=== PATIENT | male | born 1965 | race Asian ===

== ENCOUNTER 2024-01-04 10:26 | Outpatient (AMB) | payer MEDICAID, SELFPAY ==
--- NOTE | 2024-01-04 10:34 | HO.NEPHOV ---
Vital Signs 01/04/24 10:38 Height 5 ft 5 in Weight 185 lb 8 oz BMI 30.9 BP 110/80 Blood Pressure Location Lt brachial Position Sitting Pulse 83 Pulse Source Pulse Oximeter Pulse Oximetry (%) 95 Oxygen Delivery Method Room Air Intake Visit Reasons: Continuing care- Proteinuria- Conf Senior Chemist Required: Yes Senior Chemist Services: Senior Chemist Offered & Declined ([facility] Senior Chemist services refused. Pts son will interpret. ) Senior Chemist Name: Adhip- Son Accompanied by: Son Allergies No Known Allergies Allergy (Verified 01/04/24 10:25) HPI Comments Details: Pablo is a 58-year-old gentleman whom I had the privilege of seeing in follow-up for his chronic kidney disease and proteinuria. Imaging done in the past had shown large kidneys bilaterally. He has longstanding diabetes mellitus with end-organ damage from it. He is currently following his blood pressures and blood sugars closely. He denies any nausea, vomiting, diarrhea, chest pain, orthostatic symptoms. He does not take any nonsteroidal anti-inflammatories. He had nose new specific complaints at the time this office visit. He has not had any recent lab work for review at the time this office visit. [facility] Medical History (Updated 01/04/24 @ 13:25 by Dani Ramirez MD) Type 2 diabetes mellitus with diabetic nephropathy Hypertension Chronic kidney disease, stage 3a Social History (Updated 01/04/24 @ 10:35 by Erin Goode MA) Alcohol intake: never Patient Tobacco Use Status: Never used Tobacco Review of Systems Const All systems reviewed & are unremarkable except as noted in HPI and below Physical Exam Vital Signs: Last Vital Signs Pulse 83 01/04/24 10:38 BP 110/80 01/04/24 10:38 Pulse Ox 95 01/04/24 10:38 Oxygen Delivery Method Room Air 01/04/24 10:38 BMI result Body Mass Index 30.9 Const General: comfortable and no acute distress Orientation/consciousness: patient oriented x3 HEENT Head: Yes normocephalic Mouth: Normal oral and palatal mucosa present Eyes EOM: EOMs intact bilaterally Neck Neck: Yes supple Resp Auscultation: clear to auscultation bilaterally Cardio Jugular venous distension: no JVD Rate: regular rate GI Palpation (GI): Soft to palpation Auscultation: normal bowel sounds General: Yes no CVA tenderness Back/Spine/Pelvis Back: no CVA tenderness Skin General skin exam: no rashes or lesions noted Neuro General: patient oriented x3 and moves all extremities Extrem General: Yes no pedal edema Results Reviewed Nephrology Results: No Data to Display Assessment & Plan Assessment & Plan (1) Chronic kidney disease, stage 3a: Code(s): N18.31 - Chronic kidney disease, stage 3a Category: Medical (2) Hypertension: Code(s): I10 - Essential (primary) hypertension Category: Medical Qualifiers: Hypertension type: primary hypertension Qualified Code(s): I10 - Essential (primary) hypertension (3) Type 2 diabetes mellitus with diabetic nephropathy: Code(s): E11.21 - Type 2 diabetes mellitus with diabetic nephropathy Category: Medical Qualifiers: Diabetes mellitus long term care phlebotomist insulin use: without long term care phlebotomist use Qualified Code(s): E11.21 - Type 2 diabetes mellitus with diabetic nephropathy Plan Shah has diabetic nephropathy . His blood pressure is currently at goal. He is tolerating angiotensin receptor nilesh. He does not take nonsteroidal anti-inflammatories and maintain good hydration. He is tolerating Farxiga well. His urine output is good. I did not make any medication changes today. I encouraged him to do blood work and urine studies before his next visit with me for optimizing his CKD management. All his and his son's questions were answered. Follow-up appointment given Orders: Orders Creatinine 6 Months E11.21 - Type 2 diabetes mellitus with diabetic nephropathy, I10 - Essential (primary) hypertension, N18.31 - Chronic kidney disease, stage 3a Electrolytes 6 Months E11.21 - Type 2 diabetes mellitus with diabetic nephropathy, I10 - Essential (primary) hypertension, N18.31 - Chronic kidney disease, stage 3a Blood Urea Nitrogen 6 Months E11.21 - Type 2 diabetes mellitus with diabetic nephropathy, I10 - Essential (primary) hypertension, N18.31 - Chronic kidney disease, stage 3a Calcium 6 Months E11.21 - Type 2 diabetes mellitus with diabetic nephropathy, I10 - Essential (primary) hypertension, N18.31 - Chronic kidney disease, stage 3a Parathyroid Hormone Intact 6 Months E11.21 - Type 2 diabetes mellitus with diabetic nephropathy, I10 - Essential (primary) hypertension, N18.31 - Chronic kidney disease, stage 3a Protein Creatinine Ratio, Ur 6 Months E11.21 - Type 2 diabetes mellitus with diabetic nephropathy, I10 - Essential (primary) hypertension, N18.31 - Chronic kidney disease, stage 3a Vitamin D 25-OH Total 6 Months E11.21 - Type 2 diabetes mellitus with diabetic nephropathy, I10 - Essential (primary) hypertension, N18.31 - Chronic kidney disease, stage 3a Coding Level of Care Code Est Pt Level 4 (71623) Diagnoses Chronic kidney disease, stage 3a N18.31 Primary hypertension I10 Hypertension type: primary hypertension Type 2 diabetes mellitus with diabetic nephropathy, without long-term current use of insulin E11.21 Diabetes mellitus long term care phlebotomist insulin use: without senior living use
[2024-01-04 10:38] VITALS: BP 110/80; PULSE 83; O2SAT 95; BMI 30.9
== END 2024-01-04 11:00 | disposition home or self-care (01) ==
PROVIDERS: PCP Nurse Practitioner Family; Visit Provider Internal Medicine Nephrology
DX: N18.31 Chronic kidney disease, stage 3a (principal); I10 Essential (primary) hypertension; E11.21 Type 2 diabetes mellitus with diabetic nephropathy
CPT/HCPCS: 99214

== ENCOUNTER → 2024-01-04 10:26 | Outpatient (BNVA) | payer MEDICAID, SELFPAY | PROVIDERS: PCP Nurse Practitioner Family; Visit Provider Internal Medicine Nephrology | DX: E11.22 Type 2 diabetes mellitus with diabetic chronic kidney disease (principal); I12.9 Hypertensive chronic kidney disease with stage 1 through stage 4 chronic kidney disease, or unspecified chronic kidney disease; N18.31 Chronic kidney disease, stage 3a; E11.21 Type 2 diabetes mellitus with diabetic nephropathy | CPT/HCPCS: 99212 ==

== ENCOUNTER 2024-06-13 09:26 | Outpatient (AMB) | payer MEDICAID, SELFPAY ==
--- NOTE | 2024-06-13 09:36 | HO.NEPHOV ---
Vital Signs 06/13/24 09:38 Height 5 ft 5 in Weight 185 lb 6 oz BMI 30.8 BP 110/80 Blood Pressure Location Lt brachial Position Sitting Pulse 70 Pulse Source Pulse Oximeter Pulse Oximetry (%) 95 Oxygen Delivery Method Room Air Intake Visit Reasons: Proteinuria Electrical Installation Supervisor Required: Yes Electrical Installation Supervisor Language: Pashto Electrical Installation Supervisor Services: Electrical Installation Supervisor Offered & Declined [place] care worker [place], pt accompanied by son ) Accompanied by: Son Allergies No Known Allergies Allergy (Verified 06/13/24 09:37) HPI Comments Details: Pablo is a 58-year-old gentleman whom I had the privilege of seeing in follow-up for his chronic kidney disease and proteinuria. Imaging done in the past had shown large kidneys bilaterally. He has longstanding diabetes mellitus with end-organ damage from it. He is currently following his blood pressures and blood sugars closely. He denies any nausea, vomiting, diarrhea, chest pain, orthostatic symptoms. He does not take any nonsteroidal anti-inflammatories. He had no new specific complaints at the time this office visit except for intermittent dizziness. [facility] Medical History (Updated 01/04/24 @ 13:25 by Dani Ramirez MD) Type 2 diabetes mellitus with diabetic nephropathy Hypertension Chronic kidney disease, stage 3a Social History Alcohol intake: never Patient Tobacco Use Status: Never used Tobacco Review of Systems Const All systems reviewed & are unremarkable except as noted in HPI and below Physical Exam Const General: comfortable and no acute distress Orientation/consciousness: patient oriented x3 HEENT Head: Yes normocephalic Mouth: Normal oral and palatal mucosa present Eyes EOM: EOMs intact bilaterally Neck Neck: Yes supple Resp Auscultation: clear to auscultation bilaterally Cardio Jugular venous distension: no JVD Rate: regular rate GI Palpation (GI): Soft to palpation Auscultation: normal bowel sounds General: Yes no CVA tenderness Back/Spine/Pelvis Back: no CVA tenderness Skin General skin exam: no rashes or lesions noted Neuro General: patient oriented x3 and moves all extremities Extrem General: Yes no pedal edema Results Reviewed Nephrology Results: No Data to Display Assessment & Plan Assessment & Plan (1) Type 2 diabetes mellitus with diabetic nephropathy: Code(s): E11.21 - Type 2 diabetes mellitus with diabetic nephropathy Category: Medical Qualifiers: Diabetes mellitus group home insulin use: without termite helper use Qualified Code(s): E11.21 - Type 2 diabetes mellitus with diabetic nephropathy (2) Chronic kidney disease, stage 3a: Code(s): N18.31 - Chronic kidney disease, stage 3a Category: Medical (3) Hypertension: Code(s): I10 - Essential (primary) hypertension Category: Medical Qualifiers: Hypertension type: primary hypertension Qualified Code(s): I10 - Essential (primary) hypertension Plan Pablo has diabetic nephropathy .His blood pressure is low normal with intermittent dizziness. His creatinine is marginally worse, likely tubular injury. DDx- progression of diabetic nephropathy. I held his HCTZ. His metformin is on hold. He is tolerating angiotensin receptor nilesh.He does not take nonsteroidal anti-inflammatories and maintain good hydration. His urine output is good. I did not make any other medication changes today. I encouraged him to do blood work before his next visit with me for optimizing his CKD management. All his and his son's questions were answered. Follow-up appointment given Orders: Orders Blood Urea Nitrogen 6 Weeks E11.21 - Type 2 diabetes mellitus with diabetic nephropathy, I10 - Essential (primary) hypertension, N18.31 - Chronic kidney disease, stage 3a Electrolytes 6 Weeks E11.21 - Type 2 diabetes mellitus with diabetic nephropathy, I10 - Essential (primary) hypertension, N18.31 - Chronic kidney disease, stage 3a Creatinine 6 Weeks E11.21 - Type 2 diabetes mellitus with diabetic nephropathy, I10 - Essential (primary) hypertension, N18.31 - Chronic kidney disease, stage 3a Coding Level of Care Code Est Pt Level 4 (60098) Diagnoses Type 2 diabetes mellitus with diabetic nephropathy, without long-term current use of insulin E11.21 Diabetes mellitus termite helper insulin use: without termite helper use Chronic kidney disease, stage 3a N18.31 Primary hypertension I10 Hypertension type: primary hypertension
[2024-06-13 09:38] VITALS: BP 110/80; PULSE 70; O2SAT 95; BMI 30.8
--- OUTSIDE RECORDS SUMMARY | 2024-06-13 10:19 | XMS_ITS | Clinical Summary ---
Author Organization [facility] it Address [address] [place] [address] Care Team Providers Care Software Configuration Manager Name Role Phone Lenora Cox NP Primary Care Provider [phone] Social History Tobacco Use Types Packs/Day Years Used Date Smoking Tobacco: Never Assessed Sex and Gender Information Value Date Recorded Sex Assigned at Not on file Legal Sex Male 6:42 AM EST Gender Identity Not on file Sexual Orientation Not on file Obstetrics History Last Filed Vital Signs Vital Sign Reading Time Taken Comments Blood Pressure 110/80 05/01/2022 10:24 AM EST Pulse 58 05/01/2022 10:24 AM EST Temperature - - Respiratory Rate - - Oxygen Saturation - - Inhaled Oxygen Concentration - - Weight 88.5 kg (195 lb) 05/01/2022 10:24 AM EST Height 172.7 cm (5' 8 ) 05/01/2022 10:24 AM EST Body Mass Index 29.65 05/01/2022 10:24 AM EST Plan of Treatment Health Maintenance Due Date Last Done Comments Diabetes: Annual Foot Exam 02/23/1976 Diabetes: Annual Retina Eye Exam 02/23/1976 Hepatitis A Vaccines (1 of 2 - Risk 2-dose series) 1985 Colorectal Cancer Screening: Colonoscopy 01/25/2022 Social Influencers of Health Screening 01/25/2022 COVID-19 Vaccine ( season) 2023 01/27/2023, 02/26/2021, 06/19/2020, Additional history exists Diabetes: Blood Sugar Control Test (HGBA1C) 10/28/2024 04/27/2024 Depression Screening 04/27/2025 04/27/2024 Diabetes: Annual Urine Albumin-Creatinine Ratio (uACR) 04/27/2025 04/27/2024, 04/28/2023, 11/15/2019, Additional history exists Diabetes: Annual GFR (Glomerular Filtration Rate) 04/27/2025 04/27/2024 Hypertension/CHF/CAD Annual BMP Blood Test 04/27/2025 04/27/2024 Cholesterol Screening (Lipid Panel) 04/27/2029 04/27/2024, 04/27/2024, 09/23/2023, Additional history exists DTaP,Tdap,and Td Vaccines (5 - Td or Tdap) 11/27/2032 11/27/2022, 05/13/2012, 02/08/2012, Additional history exists Hepatitis B Vaccines Completed 05/31/2012, 02/08/2012, 12/23/2011 HIV Screening Completed 12/01/2017 Hepatitis C Screening Completed 11/29/2020 Zoster Vaccines Completed 12/16/2021, 03/23/2019 Pneumococcal Vaccine: 50+ Years Completed 11/27/2022, 12/01/2017 Pneumococcal Vaccine: Pediatrics (0 to 5 Years) and At-Risk Patients (6 to 64 Years) Aged Out 11/27/2022, 12/01/2017 No longer eligibl e based on patient's age to complete this topic Influenza Vaccine Completed 04/27/2024, , 12/16/2021, Additional history exists HIB Vaccines Aged Out No longer eligi ble based on patient's age to complete this topic HPV Vaccines Aged Out No longer eligi ble based on patient's age to complete this topic IPV Vaccines Aged Out No longer eligi ble based on patient's age to complete this topic MMR Vaccines Aged Out No longer eligi ble based on patient's age to complete this topic Meningococcal ACWY Vaccine Aged Out N o longer eligible based on patient's age to complete this topic Meningococcal B Vaccine Aged Out No l onger eligible based on patient's age to complete this topic RSV Immunization Patients Under 20 months Aged Out No longer eligible based on patient's age to complete this topic Varicella Vaccines Aged Out No longer eligible based on patient's age to complete this topic Care Teams Software Configuration Manager Relationship Specialty Start Date End Date Lenora Cox NP [address] [place] [address] [facility] - General 08/12/20
--- OUTSIDE RECORDS SUMMARY | 2024-06-13 10:20 | XMS_ITS | Encounter Summary ---
Author Organization [facility] Address [address] [place] [address] Care Team Providers Care Lag Screwer Name Role Phone Alex Truijllo PA-C Primary Care Provider [phone] Reason for Visit * Reason Comments Individual Counseling Encounter Details Date Type Department Care Team ([facility] st Contact Info) Description 06/08/2024 9:00 AM EDT / Visits [facility] [address] [place] [phone] Kannan Dixon LCSW [address] [place] [address] [address] [place] [address] Major depressive disorder, single episode, severe (HCC) (Primary Dx); PTSD (post-traumatic stress disorder) Social History Tobacco Use Types Packs/Day Years Used Date Smoking Tobacco: Former Smokeless Tobacco: Former Alcohol Use Standard Drinks/Week Comments No 0 (1 standard drink = 0.6 oz pur e alcohol) Social Connections Answer Date Recorded Connectedness 1 04/27/2024 Financial Resource Strain Answer Date R ecorded Financial Resource Strain 1 2024 Stress Answer Date Recorded Stress 1 04/27/2024 Physical Activity Answer Date Recorded Physical Activity 0 10/12/2018 Food Insecurity Answer Date Recorded Food 1 04/27/2024 Transportation Needs Answer Date Record ed Transportation 1 04/27/2024 Housing Stability Answer Date Recorded Housing 1 04/27/2024 Safety and Environment Answer Date David rded Safety 0 01/27/2023 Utilities Answer Date Recorded Utilities 1 04/27/2024 Employment Answer Date Recorded Employment 0 10/12/2018 Sex and Gender Information Value Date Recorded Sex Assigned at Male 03/29/2017 6:13 AM PST Legal Sex Male 7:27 AM PST Gender Identity Male 03/29/2017 6:13 AM PST Sexual Orientation Straight 03/29/2017 6: 13 AM PST documented as of this encounter Plan of Treatment Upcoming Encounters Date Type Department Care Team (Late st Contact Info) Description 07/12/2024 2:40 PM EDT Office Visit [facility] [address] [place] [address] Alex Trujillo PA-C [address] [place] [address] 07/27/2024 9:00 AM EDT / Visits [facility] [address] [place] [phone] Kannan Dixon, [facility] [address] [place] [address] [address] [place] [address] documented as of this encounter Visit Diagnoses Diagnosis Major depressive disorder, single episode, severe (HCC)- Primary Major depressive disorder, single episode, severe, without mention of psychotic behavior PTSD (post-traumatic stress disorder) Posttraumatic stress disorder documented in this encounter Additional Health Concerns Assessment Noted Time PHQ-9 Depression Total Score: 0 04/28/19 25 8:50 AM PST documented as of this encounter Care Teams Lag Screwer Relationship Specialty Start Date End Date Alex Trujillo PA-C [address] [place] [address] PCP - General [facility] 01/21/23 documented as of this encounter
--- OUTSIDE RECORDS SUMMARY | 2024-06-13 10:20 | XMS_ITS | Clinical Summary ---
Author Organization [facility] Address [address] [place] [address] [address] [place] [address] Phone Care Team Providers Care Regulatory Compliance Coordinator Name Role Phone Arti Jimenez ADMINISTRATIVE SUPERVISOR Primary Care Provider [phone] Allergies No known active allergies Medications amitriptyline (ELAVIL) 25 MG tablet Take 1 tablet by mouth 1 (one) time each day Active losartan (COZAAR) 50 MG tablet Take 1 tablet by mouth 2 (two) times a day 06/21/2018 Active metFORMIN (GLUCOPHAGE) 1000 MG tablet Take 1 tablet by mouth 2 (two) times a day Active Blood Pressure kit 1 kit 05/31/2017 Active mirtazapine (REMERON) 7.5 MG tablet Take 1 tablet by mouth every night 10/17/2020 Active omega-3 acid ethyl esters (LOVAZA) 1 g capsule Take 1 g by mouth 1 (one) time each day 11/26/2020 Active Aspirin Low Dose 81 MG EC tablet Take 81 mg by mouth 1 (one) time each day 12/11/2020 Active albuterol HFA (PROVENTIL HFA;VENTOLIN HFA) 108 (90 Base) MCG/ACT inhaler Inhale 2 puffs 12/12/2020 Active acetaminophen (TYLENOL) 500 MG tablet Take 500 mg by mouth if needed Active gabapentin (NEURONTIN) 100 MG capsule Take 1 capsule by mouth every night 02/26/2021 Active atorvastatin (LIPITOR) 20 MG tablet Take 20 mg by mouth 1 (one) time each day 03/04/2022 Active Dapagliflozin Propanediol (Farxiga) 10 MG tabletIndication s:Microalbuminur ia,Stage 3a chronic kidney disease (HCC) Take 10 mg by mouth 1 (one) time each day in the morning 30 tablet 11 07/20/2023 07/20/19 25 Active ergocalciferol 1.25 MG (55263 UT) capsuleIndicatio ns:Vitamin D deficiency, not otherwise specified TAKE 1 CAPSULE BY MOUTH 1 TIME EVERY WEEK 4 capsule 5 12/27/2023 Active Active Problems Problem Noted Date Diagnosed Date Suspected bilateral glaucoma 10/22/2021 Overview (03/19/2022): Per ophthalmology report 10/17/21 Gastro-esophageal reflux disease without esophag itis 07/23/2021 Type 2 diabetes mellitus with diabetic nephropat hy 12/17/2020 Hypertension 12/17/2020 Benign hypertensive renal disease 06/06/2020 Stage 3a chronic kidney disease 06/06/2020 Diabetes mellitus 06/06/2020 Proteinuria 06/06/2020 Microalbuminuria 06/06/2020 Essential hypertension 04/15/2016 Resolved Problems Problem Noted Date Diagnosed Date Resolved Date Steatosis of liver 12/03/2020 Overview (12/17/2020): US RUQ 03/2020 Dizziness 08/03/2020 12/17/2020 Overview (12/17/2020): CT Brain 07/2018 4mm frontal subcorticol calcification No acute abnormality Hepatitis A immune 06/06/2020 Overview (06/06/2020): per serology Obese class I 03/23/2019 06/06/2020 Severe major depression, single episode 12/07/2018 06/06/2020 Disorder of stomach 08/31/2017 06/07/19 21 Overview (06/06/2020): 12/23/16 - EGD/colonoscopy: gastric biopsy: reactive gastropathy, mild. Colonoscopy: poor prep. Pain of knee region 03/16/2014 06/07/19 21 Lumbar spondylosis 03/16/2014 Overview (06/06/2020): 07/05/17 - XRAY Lumbar spine: small degenerative osteophytes present at L3-L5. Otherwise, normal examination. Lumbar spondylosis 03/16/2014 Overview (12/17/2020): 02/01/2010: Xray lumbar: IMPRESSION: No acute findings. Mild degenerative changes. 07/05/17 - XRAY Lumbar spine: small degenerative osteophytes present at L3-L5. Otherwise, normal examination. Inactive tuberculosis of lung 07/06/2013 06/06/2020 Overview (06/06/2020): [place] [facility] [place]if[place]/14/17 - CXR: Impression: no acute pulmonary disease and no significant change from 06/23/16. A faint 4 mm L mid-lung nodule is stable. There is no radiographic evidence of active TB. Hyperlipidemia 04/05/2013 06/06/2020 Overview (06/06/2020): Microalbuminuric diabetic nephropathy 04/05/2013 06/06/2020 Mixed anxiety and depressive disorder 04/05/2013 06/06/2020 Overview (06/06/2020): Referred from psych back to PCP on 04/06/18 - Stable on Mirtazapine 7.5 mg HQS Immunizations Immunization Administration Dates Next Due Hepatitis B 05/31/2012,02/08/2012,12/23/2011 Influenza Split High Dose Pr eservative Free IM 2014 Influenza TIV (IM) 12/13/2014, 5,12/06/2012,12/22 Influenza, Quadrivalent, Pre servative Free 12/16/2021,02/26/2021,11/20/2019,12/20,12/01/2017,11/12/2016 Moderna SARS-COV-2 06/19/2020,05/22/2020 Pfizer SARS-COV-2 02/26/2021 Pneumococcal Polysaccharide 12/01/2017 Shingrix 12/16/2021 Td 05/13/2012,02/08/2012 Tdap 12/23/2011 Zoster 03/23/2019 Family History Medical History Relation Comments Diabetes Child daughter Heart disease Sibling brother Relation Status Comments Child Father Mother Sibling Social History Tobacco Use Types Packs/Day Years Used Date Smoking Tobacco: Never Smokeless Tobacco: Never Tobacco Cessation:Counseling Given: Not Answered Alcohol Use Standard Drinks/Week Comments Yes 0 (1 standard drink = 0.6 oz pur e alcohol) Sex and Gender Information Value Date Recorded Sex Assigned at Not on file Legal Sex Male 5:10 PM EST Gender Identity Not on file Sexual Orientation Not on file Last Filed Vital Signs Vital Sign Reading Time Taken Comments Blood Pressure 118/80 07/20/2023 2:42 PM EDT Pulse 74 07/20/2023 2:42 PM EDT Temperature - - Respiratory Rate - - Oxygen Saturation 98% 03/20/2021 3:06 PM EST Inhaled Oxygen Concentration - - Weight 80.3 kg (177 lb) 07/20/2023 2:42 PM EDT Height 160 cm (5' 3 ) 08/08/2019 12:00 PM EDT Body Mass Index 31.35 08/08/2019 12:00 PM EDT Plan of Treatment Health Maintenance Due Date Last Done Comments Hepatitis B Vaccine (1 of 3 - 19+ 3-dose series) 1985 05/31/2012, 02/08/2012, 12/23/2011 Colorectal Cancer Screening: Annual FOBT 2015 Colorectal Cancer Screening: Colonoscopy 2015 Colorectal Cancer Screening: Sigmoidoscopy 2015 Diabetes: Ophthalmology Exam 03/24/2020 Diabetes: Pedal Pulse Checked 03/24/2020 Diabetes: Sensory Foot Exam 03/24/2020 Diabetes: Visual Foot Exam 03/24/2020 Diabetes: Hemoglobin A1C 12/24/2023 024, 02/25/2023, 03/06/2021, Additional history exists Influenza Vaccine (Season Ended) 2024 11/27/2022, 12/16/2021, 02/26/2021, Additional history exists Pneumococcal Vaccine: 50+ Years Completed , 12/01/2017 Pneumococcal Vaccine: Peds ( 0 to 5 Years) and At-Risk Patients (6 to 49 Years) Discontinued 11/27/2022, 12/01/2017 Insurance Medicaid MD Medicaid [place] Care Teams Regulatory Compliance Coordinator Relationship Specialty Start Date End Date Arti Jimenez NP [facility] [place] [address] PCP - General Nurse Practitioner 12/17/20
--- OUTSIDE RECORDS SUMMARY | 2024-06-13 10:20 | XMS_ITS | Clinical Summary ---
Author Organization [facility] Address [address] [place] [address] Care Team Providers Care Chief Substation Operator Name Role Phone Alex Trujillo PA-C Primary Care Provider + [phone] Source Comments PLEASE NOTE, if this patient is a minor, it may be UNLAWFUL to discuss sensitive information that is contained in these records (such as FAMILY PLANNING, MENTAL HEALTH or SUBSTANCE ABUSE) with the minor patient's parent or other person without the patient's specific authorization.[facility] Allergies No known active allergies Medications back braceIndications: Chronic right-sided low back pain with right-sided sciatica 1 BACK BRACE. Dx: M54.41 wt: 203 ht: 5'5 1 Each 8 Active lidocaine (LIDODERM) 5 % patchIndications: Spondylosis of lumbar region without myelopathy or radiculopathy Place 1 Patch onto the skin once daily (every 24 hours) 30 Patch 1 2 Active acetaminophen (TYLENOL) 500 mg tablet Take 1 Tablet by mouth every 6 (six) hours as needed for pain 15 Tablet 2 Active ARTHRITIS PAIN RELIEF,CAPSAIC, 0.075 % cream APPLY TOPICALLY THREE TIMES DAILY 57 g 1 3 Active diclofenac sodium (VOLTAREN) [address] tablet Take 50 mg by mouth 2 (two) times daily 3 Active PROAIR HFA 90 mcg/actuation inhalerIndication s:Chronic bronchitis, unspecified chronic bronchitis type (HCC-CMS) Inhale 2 Puffs into the lungs every 4 (four) hours as needed for shortness of breath or wheezing 8.5 g 1 4 Active blood-glucose meter monitoring kitIndications:Ty pe 2 diabetes mellitus with diabetic nephropathy, without long-term current use of insulin ([facility]) as needed for blood glucose monitoring Freestyle meter please 1 Each [address] Active [address] tabletIndications :Essential hypertension TAKE 1 TABLET BY MOUTH ONCE DAILY 90 Tablet 1 5 Active omega-3 acid ethyl esters (LOVAZA) 1 gram capsuleIndication s:Hypertriglyceri demia TAKE 1 CAPSULE BY MOUTH TWICE DAILY 180 Capsule 1 5 Active mirtazapine 7.5 mg tabIndications:Po st traumatic stress disorder Take 1 Tablet by mouth nightly at bedtime 90 Tablet 1 5 Active amLODIPine (NORVASC) 5 mg tabletIndications :Essential hypertension Take 1 Tablet by mouth once daily 90 Tablet 1 5 Active atorvastatin (LIPITOR) 40 mg tabletIndications :Essential hypertension,Type 2 diabetes mellitus with diabetic nephropathy, without long-term current use of insulin ([facility]),Hypertr iglyceridemia Take 1 Tablet by mouth nightly at bedtime 90 Tablet 1 5 Active blood sugar diagnostic (FREESTYLE TEST) stripsIndications :Type 2 diabetes mellitus with microalbuminuria, without long-term current use of insulin ([facility]) Freestyle strips. Dx: E11.9 Check BG once daily. 100 Each 5 Active famotidine (PEPCID) 40 mg tabletIndications :Gastroesophageal reflux disease, unspecified whether esophagitis present Take 1 Tablet by mouth once daily 90 Tablet 5 Active FARXIGA 5 mg tab Take 1 Tablet by mouth every morning 90 Tablet 5 Active gabapentin (NEURONTIN) 100 mg capsuleIndication s:Spondylosis of lumbar region without myelopathy or radiculopathy Take 1 Capsule by mouth nightly at bedtime 90 Capsule 5 Active lancets (FREESTYLE LANCETS) 28 gaugeIndications: Type 2 diabetes mellitus with microalbuminuria, without long-term current use of insulin ([facility]) Freestyle lancets. Dx: E11.9 Check BG once daily. 100 Each 5 Active losartan (COZAAR) 50 mg tabletIndications :Essential hypertension Take 1 Tablet by mouth 2 (two) times daily 180 Tablet 1 5 Active metFORMIN (GLUCOPHAGE) 1,000 mg tabletIndications :Type 2 diabetes mellitus with diabetic nephropathy, without long-term current use of insulin ([facility]) Take 1 Tablet by mouth 2 (two) times daily 180 Tablet 1 5 Active Active Problems Problem Noted Date Diagnosed Date Suspected glaucoma of both eyes 10/22/2021 Overview (10/22/2021): Per ophthalmology report 10/17/21 Gastroesophageal reflux disease without esophagi tis 07/23/2021 Fatty infiltration of liver 12/03/2020 Overview (12/03/2020): US RUQ 03/2020 Nonspecific dizziness 08/03/2020 Overview (08/03/2020): CT Brain 07/2018 4mm frontal subcorticol calcification No acute abnormality Benign hypertensive renal disease 06/06/2020 Chronic kidney disease, stage 3a ([facility]) 06/06 Overview (05/20/2022): Seeing [facility]. Last consult 02/2022 Chronic Kidney Disease 3 He appears to be doing rather well from the standpoint of his probable incipient diabetic nephropathy. His blood pressure is at goal. His volume status is optimal. He is on losartan for renal protection which he should continue 50 mg bid . His blood sugars appear to be under reasonable control. He is a candidate for SGLT2 inhibitor. He should avoid NSAID's and should remain well hydrated. .All patient's questions answered. No other prescription refills done today. Blood work ordered. Follow up given Gastropathy 08/31/2017 Overview (09/12/2018): 12/23/16 - EGD/colonoscopy: gastric biopsy: reactive gastropathy, mild. Colonoscopy: poor prep. Essential hypertension 04/15/2016 Osteoarthritis of lumbar spine 03/16/2014 Overview (07/10/2020): 02/01/2010: Xray lumbar: IMPRESSION: No acute findings. Mild degenerative changes. 07/05/17 - XRAY Lumbar spine: small degenerative osteophytes present at L3-L5. Otherwise, normal examination. TB lung, latent 07/06/2013 Overview (04/08/2021): 2 mm calcified granuloma of left lung He is going to TB clinic at [facility], on Rifampin 12/14/17 - CXR: Impression: no acute pulmonary disease and no significant change from 06/23/16. A faint 4 mm L mid-lung nodule is stable. There is no radiographic evidence of active TB. Microalbuminuric diabetic nephropathy ([facility]) 04/05/2013 Anxiety and depression 04/05/2013 Overview (04/06/2018): Referred from psych back to PCP on 04/06/18 - Stable on Mirtazapine 7.5 mg HQS Type 2 diabetes mellitus wit h diabetic nephropathy, without long-term current use of insulin ([facility]) Overview (06/13/2017): 02/24/13reat: 1.05, GFR: >60%, LDL: 123, A1C: 7.8%, Microalb/creat ratio: 791mg/G, Microalb: 1202 mg/L 06/04/17 - Diabetic eye exam: No retinopathy. Pigmented papilloma OU stable, Pinguecula b/l stable, Nuclear sclerotic cataract. Rx Spectacles. F/U 1 year. Resolved Problems Problem Noted Date Diagnosed Date Resolved Date Proteinuria 07/06/2017 02/26/2021 Overview (08/03/2020): 05/31/17 - NEPHRO at [facility]: proteinuria. Doing well from the standpoint of his probable incipient diabetic nephropathy. BP and BG well controlled, on lisinopril for renal protection. Repeat blood work and urine studies for F/U. 06/21/18 - NEHRO F/U: Losartan increased form 50 mg QD to 50 mg BID, Amlodipine 5 mg discontinued. Chest pain syndrome 07/06/2013 11/13/19 17 Overview (07/06/2013): When in [place] patient had Cath done (per son) and was normal. This was performed due to c/o angina type pain which he continues to have Encounters Date Type Department Care Team Description 06/08/2024 9:00 AM EDT BH/MH Visits [address] [phone] Kannan Dixon LCSW Tiwari, Bhanu Major depressive disorder, single episode, severe (HCC) (Primary Dx); PTSD (post-traumatic stress disorder) 05/08/2024 9:00 AM EDT BH/MH Visits [address] [phone] Kannan Dixon LCSW Major depressive disorder, single episode, severe (HCC) (Primary Dx); PTSD (post-traumatic stress disorder) 04/27/2024 8:40 AM EST Office Visit [facility] [address] [place] [address] Alex Trujillo PA-C Annual physical exam (Primary Dx); Immunization due; Essential hypertension; Type 2 diabetes mellitus with diabetic nephropathy, without long-term current use of insulin ([facility]); Hypertriglyceridemia; Type 2 diabetes mellitus with microalbuminuria, without long-term current use of insulin ([facility]); Gastroesophageal reflux disease, unspecified whether esophagitis present; Spondylosis of lumbar region without myelopathy or radiculopathy 03/27/2024 9:00 AM EST BH/MH Visits [address] [phone] Kannan Dixon LCSW Major depressive disorder, single episode, severe (HCC) (Primary Dx); PTSD (post-traumatic stress disorder) from Last 3 Months Immunizations Immunization Administration Dates Next Due Flu, Preservative Free 11/27/2022,2021,02/26/2021,11/19,12/20/2018,12/01/2017,11/12/2016 Hep B, Adult/Adol (ENERGIX/RECOMBIVAX) 0 05/31/2012,05/31/2012,02/08/2012,02/07,12/23/2011,12/23/2011 INFLUENZA, SEASONAL, INJECTABLE 12/14/19 15,03/16/2014,12/06/2012,12/06,12/23/2011,12/23/2011 Influenza (FLUBLOK),recombinant,injectable,prese rvative Free 04/27/2024 Influenza (FLUZONE), high-do se, trivalent, PF 2014 Moderna COVID-19 (Spikevax), Mrna, Lnp-s, Pf, 50 Mcg/0.5 Ml, 12yr+ 01/27/2023 Moderna COVID-19 Vaccine, re d cap blue label, 12+ Primary Series 06/19/2020,05/22/2020 PFIZER COVID VACCINE, PURPLE CAP, 12+ 02/26/2021 PNEUMOCOCCAL CONJUGATE PCV 2 0 (Prevnar) 11/27/2022 PNEUMOCOCCAL POLYSACCHARIDE PPV23 12/01/2017 TDAP 11/27/2022,12/23/2011,12/23/2011 Td(adult),2 Lf tetanus toxoid,preservative free 05/13/2012,05/13/2012,02/08/2012,02/07 ZOSTER VACCINE, RECOMBINANT (SHINGRIX) ,03/23/2019 Social History Tobacco Use Types Packs/Day Years Used Date Smoking Tobacco: Former Smokeless Tobacco: Former Tobacco Cessation:Counseling Given: No Alcohol Use Standard Drinks/Week Comments No 0 [...] Orientation Straight 03/29/2017 6: 13 AM PST Last Filed Vital Signs Vital Sign Reading Time Taken Comments Blood Pressure 120/90 04/27/2024 8:50 AM EST Pulse 93 04/27/2024 8:50 AM EST Temperature 36.7 ??C (98.1 ??F) 04/27/2024 8:50 AM ES T Respiratory Rate 18 04/27/2024 8:50 AM EST Oxygen Saturation 97% 04/27/2024 8:50 AM EST Inhaled Oxygen Concentration - - Weight 83.6 kg (184 lb 6.4 oz) 04/27/2024 8:50 A M EST Height 167.6 cm (5' 6 ) 04/27/2024 8:50 AM EST Body Mass Index 29.76 04/27/2024 8:50 AM EST Plan of Treatment Upcoming Encounters Date Type Department Care Team (Late st Contact Info) Description 07/12/2024 2:40 PM EDT Office Visit [address] [phone] Alex Trujillo PA-C [address] [place] [address] 07/27/2024 9:00 AM EDT / Visits [facility] [address] [place] [phone] Kannan Dixon, TRAY SERVER [address] [place] [phone] [address] [place] [address] Health Maintenance Due Date Last Done Comments Anxiety Screening [address] CT Colonography 2011 FIT/gFOBT 2011 Fecal DNA 2011 Flexible Sigmoidoscopy 2011 Colonoscopy 12/22/2021 12/22/2016 Colorectal Cancer Screening 12/22/2021 [id number] ( season) 2023 01/27/2023, 02/26/2021, 06/19/2020, Additional history exists Diabetes Foot Exam 11/28/2023 11/27/2022, 1 , 11/05/2020, Additional history exists Dental BW 12/01/2023 11/28/2022 Dental Perio Charting 12/01/2023 11/28/2022 Dental Prophy 12/12/2023 06/10/2023, 11/28/2022 Dental Examination 06/11/2024 06/10/2023, 11/28/2022 Depression Monitoring 07/28/2024 04/27/2024 , 09/23/2023, 04/28/2023, Additional history exists Tobacco Screening 09/22/2024 09/23/2023 Retinopathy Screening 10/26/2024 10/27/2023 , 10/21/2022, 10/17/2021, Additional history exists Diabetes HbA1c 10/28/2024 04/27/2024, 08/0 02/2023, 02/25/2023, Additional history exists Annual Preventive Care Visit 04/27/202507/2024, 01/27/2023, 11/27/2022, Additional history exists Lipid Screening 04/27/2025 04/27/2024, 08/0 02/2023, 04/28/2023, Additional history exists Serum Creatinine 04/27/2025 04/27/2024, , 09/23/2023, Additional history exists Urine Albumin Creatinine Rat io Screening 04/27/2025 04/27/2024, 01/19/2024, 04/28/2023, Additional history exists Dental FMX/Pano 12/01/2027 11/28/2022 Imm-DTaP/Tdap/Td (8 - Td or Tdap) 11/27/2032 11/27/2022, 05/13/2012, 05/13/2012, Additional history exists Imm-Hepatitis B Completed 05/31/2012, 04/0 10/2012, 02/08/2012, Additional history exists HIV Screening Completed 12/01/2017 Hepatitis C Screening Completed 11/29/2020, 020 Imm-Zoster, Recombinant Completed 12/16/2021, 03/23 Imm-Pneumococcal Completed 11/27/2022, 12/01/2017 Alcohol and Drug Screen Completed 04/28/19, 09/23/2023, 02/25/2023, Additional history exists Imm-Influenza Completed 04/27/2024, 07/2022, 12/16/2021, Additional history exists Procedures Procedure Name Priority Date/Time Associated Diagnosis Comments REFERRAL SCANNED DOCUMENT 05/25/2024 3:00 AM EDT MICROALBUMIN/CREATININ E RATIO, URINE, RANDOM Routine 04/27/2024 9:16 AM EST Type 2 diabetes mellitus with diabetic nephropathy, without long-term current use of insulin ([facility]) LIPID PANEL Routine 04/27/2024 9:16 AM EST Essential hypertension Type 2 diabetes mellitus with diabetic nephropathy, without long-term current use of insulin ([facility]) Hypertriglyceridemi a HEMOGLOBIN GLYCOSYLATED A1C Routine 04/27/2024 9:16 AM EST Type 2 diabetes mellitus with diabetic nephropathy, without long-term current use of insulin ([facility]) COMPREHENSIVE METABOLIC PANEL Routine 04/27/2024 9:16 AM EST Essential hypertension Type 2 diabetes mellitus with diabetic nephropathy, without long-term current use of insulin ([facility]) Hypertriglyceridemi a BLOOD COUNT COMPLETE AUTO&AUTO DIFRNTL WBC Routine 04/27/2024 9:16 AM EST Essential hypertension Type 2 diabetes mellitus with diabetic nephropathy, without long-term current use of insulin ([facility]) Hypertriglyceridemi a EYE EXAM 10/27/2023 3:00 AM EDT Full PROPHYLAXIS - ADULT Routine 06/10/2023 9:40 AM EDT Caries of enamel (incipient) Full PERIODIC ORAL EVALUATION ESTABLISHED PATIENT Routine 06/10/2023 9:40 AM EDT Caries of enamel (incipient) INTRAORAL - COMP SERIES OF RADIOGRAPHIC IMAGES Routine 11/28/2022 9:00 AM EDT Fracture of crown, enamel, and dentin of tooth without pulp exposure Encounter for dental examination ACUTE HEPATITIS PANEL W/RFLX Routine 11/29/2020 10:41 AM EDT Elevated LFTs REFERRAL TO PODIATRY Routine 11/26/2020 3:00 AM EDT Type 2 diabetes mellitus with diabetic nephropathy, without long-term current use of insulin ([facility]) ANTIBODY HIV-1&HIV-2 SINGLE RESULT Routine 12/01/2017 9:34 AM EDT Routine lab draw COLONOSCOPY Routine 12/22/2016 9:00 AM EDT from Last 3 Months or Most Recently Relevant to Health Maintenance Results * REFERRAL SCANNED DOCUMENT (05/25/2024 3:00 AM EDT) 05/25/2024 3:00 AM EDT [facility] Provider Default SCAN REFERRAL Final Resu lt * (ABNORMAL) MICROALBUMIN/CREATININE RATIO, URINE, RANDOM (04/27/2024 9:16 AM EST) CREATININE, RANDOM URINE 113 20 - 320 mg/dL [facility] MICROALBUMIN 322.0 mg/dL [facility] Comment: Verified by repeat analysis. Reference Range Not established MICROALBUMIN/CREA TININE RATIO, RANDOM URINE 2,850(H) <30 mg/g creat [facility] Comment: The ADA defines abnormalities in albumin excretion as follows: Albuminuria Category ?Result (mg/g creatinine) Normal to Mildly increased ?? <30 Moderately increased ? 30-299 Severely increased ? > OR = 300 The ADA recommends that at least two of three specimens collected within a 3-6 month period be abnormal before considering a patient to be within a diagnostic category. Urine Urine specimen / Unknown 04/27/2024 9:16 AM EST 04/27/2024 9:17 AM EST Alex Trujillo PA-C LAB - NO BLOOD DRAW Final Re sult [facility] [address] [address], [facility] [address] [place] [address] * BLOOD COUNT COMPLETE AUTO&AUTO DIFRNTL WBC (04/27/2024 9:16 AM EST) WHITE BLOOD CELL COUNT 6.5 3.8 - 10.8 Thousand/ uL [employer] [employer] RED BLOOD CELL COUNT 5.20 4.20 - 5.80 Million/u L [employer] HEMOGLOBIN 14.7 13.2 - 17.1 g/dL [employer] HEMATOCRIT 45.8 38.5 - 50.0 % [employer] MCV 88.1 80.0 - 100.0 fL [employer] MCH 28.3 27.0 - 33.0 pg [employer] MCHC 32.1 32.0 - 36.0 g/dL [facility] Comment: For adults, a slight decrease in the calculated MCHC value (in the range of 30 to 32 g/dL) is most likely not clinically significant; however, it should be interpreted with caution in correlation with other red cell parameters and the patient's clinical condition. RDW 14.1 11.0 - 15.0 % [employer] PLATELET COUNT 242 140 - 400 Thousand/ uL [employer] MPV 11.7 7.5 - 12.5 fL [employer] ABSOLUTE NEUTROPHILS 4,043 1,500 - 7,800 cells/uL [employer] ABSOLUTE LYMPHOCYTES 1,898 850 - 3,900 cells/uL [employer] ABSOLUTE MONOCYTES 358 200 - 950 cells/uL [employer] ABSOLUTE EOSINOPHILS 169 15 - 500 cells/uL [employer] ABSOLUTE BASOPHILS 33 0 - 200 cells/uL [employer] NEUTROPHILS PCT 62.2 % [facility] [employer] [facility] LYMPHOCYTES 29.2 % [email or web address] MONOCYTES 5.5 % [facility] EOSINOPHILS 2.6 % [email or web address] BASOPHILS 0.5 % [facility] Blood Blood / Unknown 04/27/2024 9 :16 AM EST 04/27/2024 9:17 AM EST us Rosimar Trujillo PA-C LAB - BLOOD DRAW Edited Resu lt - Final Performing Organization Address City/[facility]/ZIP Co de Phone Number [facility] [address] [address], [facility] [address] [address] * (ABNORMAL) HEMOGLOBIN GLYCOSYLATED A1C (04/27/2024 9:16 AM EST) HEMOGLOBIN A1C 5.8(H) <5.7 % of total Hgb [facility] Comment: For someone without known diabetes, a hemoglobin A1c value between 5.7% and 6.4% is consistent with prediabetes and should be confirmed with a follow-up test. For someone with known diabetes, a value <7% indicates that their diabetes is well controlled. A1c targets should be individualized based on duration of diabetes, age, comorbid conditions, and other considerations. This assay result is consistent with an increased risk of diabetes. Currently, no consensus exists regarding use of hemoglobin A1c for diagnosis of diabetes for children. Blood Blood / Unknown 04/27/2024 9 :16 AM EST 04/27/2024 9:17 AM EST us Alex Trujillo PA-C LAB - BLOOD DRAW Edited [facility] - Final Performing Organization Address [facility]/ZIP Co de Phone Number [facility] [address] [address], [facility] [address] [address] * (ABNORMAL) LIPID PANEL (04/27/2024 9:16 AM EST) CHOLESTEROL, TOTAL 137 <200 mg/dL [facility] HDL CHOLESTEROL 36(L) > OR = 40 mg/dL [facility] TRIGLYCERIDES 200(H) <150 mg/dL [facility] Comment: If a non-fasting specimen was collected, consider repeat triglyceride testing on a fasting specimen if clinically indicated. Steve et al. J. of Clin. Lipidol. 2015;9:129-169. LDL-CHOLESTEROL 71 99 mg/dL (calc) [facility] Comment: Reference range: <100 Desirable range <100 mg/dL for primary prevention; ?? <70 mg/dL for patients with CHD or diabetic patients with > or = 2 CHD risk factors. LDL-C is now calculated using the Raz calculation, which is a validated novel method providing better accuracy than the Friedewald equation in the estimation of LDL-C. Chencho ESCALONA et al. JENNIFER. 2013;310(19): 6422-6094 (http://education.Virtual Call Center/faq/KXH810) CHOL/HDLC RATIO 3.8 <5.0 (calc) [facility] [employer] NON-HDL CHOLESTEROL 101 <130 mg/dL (calc) [facility] Comment: For patients with diabetes plus 1 major ASCVD risk factor, treating to a non-HDL-C goal of <100 mg/dL (LDL-C of <70 mg/dL) is considered a therapeutic option. Blood Blood / Unknown 04/27/2024 9 :16 AM EST 04/27/2024 9:17 AM EST Alex Trujillo PA-C LAB - BLOOD DRAW Final Resul t [facility] [address] [address], [facility] [address] [phone] * (ABNORMAL) COMPREHENSIVE METABOLIC PANEL (04/27/2024 9:16 AM EST) GLUCOSE 82 65 - 99 mg/dL [facility] Comment: ?Fasting reference interval UREA NITROGEN (BUN) 24 7 - 25 mg/dL [facility] CREATININE (blood) 2.01(H) 0.70 - 1.30 mg/dL [employer] EGFR 38(L) > OR = 60 mL/min/1. 73m2 [employer] BUN/CREATININE RATIO 12 6 - 22 (calc) [employer] SODIUM 141 135 - 146 mmol/L [employer] POTASSIUM 4.4 3.5 - 5.3 mmol/L [employer] CHLORIDE 107 98 - 110 mmol/L [employer] CARBON DIOXIDE 24 20 - 32 mmol/L [employer] CALCIUM 9.4 8.6 - 10.3 mg/dL [facility] PROTEIN, TOTAL 6.1 6.1 - 8.1 g/dL [facility] ALBUMIN 4.1 3.6 - 5.1 g/dL [facility] GLOBULIN 2.0 1.9 - 3.7 g/dL (calc) [facility] ALBUMIN/GLOBULI N RATIO 2.1 1.0 - 2.5 (calc) [facility] BILIRUBIN, TOTAL 0.7 0.2 - 1.2 mg/dL [facility] ALKALINE PHOSPHATASE 66 35 - 144 U/L [facility] AST 18 10 - 35 U/L [facility] ALT 22 9 - 46 U/L [facility] Blood Blood / Unknown 04/27/2024 9 :16 AM EST 04/27/2024 9:17 AM EST us Alex Trujillo PA-C LAB - BLOOD DRAW Edited Resu lt - Final [facility] [address] [address], [facility] [address] [address] * EYE EXAM (10/27/2023 3:00 AM EDT) 10/27/2023 3:00 AM EDT us Alex Trujillo PA-C OTHER Edited Resul t - Final * ACUTE HEPATITIS PANEL W/RFLX (11/29/2020 10:41 AM EDT) HEPATITIS A IGM ANTIBODY NON-REACT GERI NON-REACT GERI [facility] COMMENT [facility] HEPATITIS B SURFACE ANTIGEN NON-REACT GERI NON-REACT GERI [facility] HEPATITIS B CORE IGM ANTIBODY NON-REACT GERI NON-REACT GERI [facility] HEPATITIS C ANTIBODY NON-REACT GERI NON-REACT GERI [facility] SIGNAL TO CUT-OFF 0.02 <1.00 [facility] Comment: HCV antibody was non-reactive. There is no laboratory evidence of HCV infection. In most cases, no further action is required. However, if recent HCV exposure is suspected, a test for HCV RNA (test code 37581) is suggested. For additional information please refer to http://Zin.gl.V-me Media/faq/RHM16l1 (This link is being provided for informational/ educational purposes only.) Blood Blood / Unknown 11/29/2020 1 0:41 AM EDT 11/29/2020 10:41 AM EDT Narrative [facility] - 11/30/2020 12:21 PM EDT For additional information, please refer to http://Zin.gl.V-me Media/faq/OXF441 (This link is being provided for informational/ educational purposes only.) Arti KRAUSE-C LAB - BLOOD DRAW Final Resul t [facility] [address] [place] [address], [facility] [address] [address] * REFERRAL TO PODIATRY (11/26/2020 3:00 AM EDT) 11/26/2020 3:00 AM EDT Arti KRAUSE-C REFERRAL Edited Resul t - Final * HIV-1 & HIV-2 ANTIBODIES (12/01/2017 9:34 AM EDT) HIV 1 AND 2 ANTIBODY SCREEN NEGATIVE NEGATIVE [facility] Comment: This assay is a 4th generation assay allowing for earlier detection of HIV infection by detecting the presence of the HIV-1 p24 antigen as well as the traditional antibodies to HIV type 1 (including group O) and type 2. ??Use of a 4th generation assay is the current CDC recommendation for HIV screening. Blood specimen (specimen) Blood / Unknown 12/01/2017 9:34 AM EDT 12/01/2017 10:09 AM EDT [facility]ative [facility] 12/01/2017 1:03 PM EDT [facility] [address] [place] [address] PT ID [id number] ORD# [id number] Joana Workman PA-C LAB - BLOOD DRAW Final Re sult [facility] [address] [place] [address], * COLONOSCOPY (12/22/2016 9:00 AM EDT) Impressions Connie Felton MA - 12/22/2016 9:00 AM EDT Colonoscopy impressions: mild gastritis, aborted colonoscopy Pathology 12/23/2016 Reactive gastropathy, mild Repeat 1 year Provider [facility] PROCEDURES Final Result from Last 3 Months or Most Recently Relevant to Health Maintenance Insurance [facility] DENTAL [facility] SAFETY NET DENTAL [facility] Member Subscriber Plan / Payer (Ef fective 2023-Present) Name:Pablo Dugan Relation to Subscriber:Self Name:Pablo Dugan Payer ID:[id number] Group ID:Not on file Type:Managed Medicaid Address: [place] [id number] Care Teams Chief Substation Operator Relationship Specialty Start Date End Date Alex Trujillo PA-C [address] [place] [address] PCP - General [facility] [place] 01/21/23
== END 2024-06-13 09:56 | disposition home or self-care (01) ==
LOC: HO.HKAS 09:27
PROVIDERS: PCP Nurse Practitioner Family; Visit Provider Internal Medicine Nephrology
DX: E11.21 Type 2 diabetes mellitus with diabetic nephropathy (principal); N18.31 Chronic kidney disease, stage 3a; I10 Essential (primary) hypertension
CPT/HCPCS: 99214

== ENCOUNTER → 2024-06-13 09:26 | Outpatient (BNVA) | payer MEDICAID, SELFPAY | PROVIDERS: PCP Nurse Practitioner Family; Visit Provider Internal Medicine Nephrology | DX: E11.22 Type 2 diabetes mellitus with diabetic chronic kidney disease (principal); E11.21 Type 2 diabetes mellitus with diabetic nephropathy; I12.9 Hypertensive chronic kidney disease with stage 1 through stage 4 chronic kidney disease, or unspecified chronic kidney disease; R80.9 Proteinuria, unspecified; N28.81 Hypertrophy of kidney; N18.31 Chronic kidney disease, stage 3a | CPT/HCPCS: 99212 ==

== ENCOUNTER 2024-08-03 09:29 | Outpatient (REF) | payer MEDICAID, SELFPAY ==
[2024-08-03 17:52] LABS: Anion Gap 10 (12-20); Blood Urea Nitrogen 32 mg/dL (9-16); Calcium 9.2 mg/dL (8.4-10.2); Carbon Dioxide 25 mmol/L (22-29); Chloride 109 mmol/L (96-108); Estimated Glomerular Filt Rate 24; Potassium 4.3 mmol/L (3.3-5.1); Sodium 140 mmol/L (135-145)
[2024-08-03 18:05] LABS: Creatinine Urine 73.99 mg/dL
[2024-08-03 18:08] LABS: Vitamin D 25-OH Total 48.5 ng/mL (>30)
[2024-08-03 18:10] LABS: Parathyroid Hormone Intact 140.1 pg/mL (8.7-77.1)
[2024-08-03 18:19] LABS: Protein/Creatinine Ratio, Ur 4.78 (<0.2); Total Protein Urine Random 354 mg/dL (<12)
== END 2024-08-03 09:30 | disposition home or self-care (01) ==
LOC: HO.HKASLDS 09:29
PROVIDERS: Visit Provider Internal Medicine Nephrology
DX: E11.21 Type 2 diabetes mellitus with diabetic nephropathy (principal); I10 Essential (primary) hypertension; N18.31 Chronic kidney disease, stage 3a
CPT/HCPCS: 36415; 80051; 82306; 82310; 82565; 82570; 83970; 84156; 84520

== ENCOUNTER 2024-08-16 10:21 | Outpatient (REF) | payer MEDICAID, SELFPAY ==
--- OUTSIDE RECORDS SUMMARY | 2024-08-16 12:04 | XMS_ITS | Clinical Summary ---
Author Organization [facility] it Address [address] [place] [address] Care Team Providers Care Waste Duster Name Role Phone Lenora Cox NP Primary Care Provider [phone] Social History Tobacco Use Types Packs/Day Years [...] age to complete this topic Care Teams Waste Duster Relationship Specialty Start Date End Date Lenora Cox NP [address] [place] [address] [facility] - General 08/12/20
[2024-08-16 18:28] LABS: Anion Gap 14 (12-20); Blood Urea Nitrogen 26 mg/dL (9-16); Calcium 9.3 mg/dL (8.4-10.2); Carbon Dioxide 25 mmol/L (22-29); Chloride 106 mmol/L (96-108); Estimated Glomerular Filt Rate 26; Glucose Random 102 mg/dL (60-115); Potassium 4.7 mmol/L (3.3-5.1); Sodium 140 mmol/L (135-145)
== END 2024-08-16 10:22 | disposition home or self-care (01) ==
LOC: HO.HKASLDS 10:21
PROVIDERS: Nurse Practitioner Family; Visit Provider Internal Medicine Nephrology
DX: N18.30 Chronic kidney disease, stage 3 unspecified (principal); N17.9 Acute kidney failure, unspecified
CPT/HCPCS: 36415; 80048

== ENCOUNTER 2024-08-17 10:41 | Outpatient (AMB) | payer MEDICAID, SELFPAY ==
[2024-08-17 10:57] VITALS: BP 128/80; PULSE 95; O2SAT 93; BMI 32.7
--- NOTE | 2024-08-17 10:57 | HO.NEPHOV ---
Vital Signs 08/17/24 10:57 Height 5 ft 5 in Weight 196 lb 6 oz BMI 32.7 BP 128/80 Blood Pressure Location Lt brachial Position Sitting Pulse 95 Pulse Source Pulse Oximeter Pulse Oximetry (%) 93 Oxygen Delivery Method Room Air Intake Visit Reasons: 2 mo follow up Intake Note: Patient here for a follow-up. Senior Procurement Specialist Required: No Accompanied by: Son Allergies No Known Allergies Allergy (Verified 08/17/24 10:59) Do you need a note to return to daycare/school/sports/work: No HPI Comments Details: Pablo is a 59-year-old gentleman whom I had the privilege of seeing in follow-up for his chronic kidney disease and proteinuria. Recently he had PETERSON and his ARB has been discontinued. His BP went up and he went to [facility] and was admitted for further management. He received IV fluids and his creatiine stabilized and improved marginally. Imaging done in the past had shown large kidneys bilaterally. He has longstanding diabetes mellitus with end-organ damage from it. He is currently following his blood pressures and blood sugars closely. He denies any nausea, vomiting, diarrhea, chest pain, orthostatic symptoms. He does not take any nonsteroidal anti-inflammatories. He had no new specific complaints at the time this office visit. He was accompanied by his son during the office visit [facility] Medical History Type 2 diabetes mellitus with diabetic nephropathy Hypertension Chronic kidney disease, stage 3a Social History Alcohol intake: never Patient Tobacco Use Status: Never used Tobacco Review of Systems Const All systems reviewed & are unremarkable except as noted in HPI and below Physical Exam Vital Signs: Last Vital Signs Pulse 95 08/17/24 10:57 BP 128/80 08/17/24 10:57 Pulse Ox 93 08/17/24 10:57 Oxygen Delivery Method Room Air 08/17/24 10:57 BMI result Body Mass Index 32.7 Const General: comfortable and no acute distress Orientation/consciousness: patient oriented x3 HEENT Head: Yes normocephalic Mouth: Normal oral and palatal mucosa present Eyes EOM: EOMs intact bilaterally Neck Neck: Yes supple Resp Auscultation: clear to auscultation bilaterally Cardio Jugular venous distension: no JVD Rate: regular rate GI Palpation (GI): Soft to palpation Auscultation: normal bowel sounds General: Yes no CVA tenderness Back/Spine/Pelvis Back: no CVA tenderness Skin General skin exam: no rashes or lesions noted Neuro General: patient oriented x3 and moves all extremities Extrem General: Yes no pedal edema Results Reviewed Nephrology Results: Sodium, (135-145) 140 mmol/L 08/16/24 Potassium, (3.3-5.1) 4.7 mmol/L 08/16/24 Chloride, (96-108) 106 mmol/L 08/16/24 Carbon Dioxide, (22-29) 25 mmol/L 08/16/24 BUN, (9-16) 26 mg/dL H 08/16/24 Creatinine, (0.5-1.4) 2.59 mg/dL H 08/16/24 Calcium, (8.4-10.2) 9.3 mg/dL 08/16/24 PTH Intact, (8.7-77.1) 140.1 pg/mL H 08/03/24 Urine Creatinine 73.99 mg/dL 08/03/24 Protein/Creatinin Ratio, (<0.2) 4.78 H 08/03/24 Assessment & Plan Assessment & Plan (1) Chronic kidney disease, stage 3a: Code(s): N18.31 - Chronic kidney disease, stage 3a Category: Medical (2) Hypertension: Code(s): I10 - Essential (primary) hypertension Category: Medical Qualifiers: Hypertension type: primary hypertension Qualified Code(s): I10 - Essential (primary) hypertension (3) Type 2 diabetes mellitus with diabetic nephropathy: Code(s): E11.21 - Type 2 diabetes mellitus with diabetic nephropathy Category: Medical Qualifiers: Diabetes mellitus intermediate school teacher insulin use: without intermediate school teacher use Qualified Code(s): E11.21 - Type 2 diabetes mellitus with diabetic nephropathy (4) PETERSON (acute kidney injury): Code(s): N17.9 - Acute kidney failure, unspecified Category: Medical Plan Pablo has diabetic nephropathy .He developed PETERSON on CKD from tubular injury and his ARB has been discontinued. DDx- progression of diabetic nephropathy. His metformin is on hold. He does not take nonsteroidal anti-inflammatories and maintain good hydration. His urine output is good. I did not make any other medication changes today. I encouraged him to do blood work before his next visit with me for optimizing his CKD management. All his and his son's questions were answered. Follow-up appointment given Orders: Orders Creatinine 2 Weeks N17.9 - Acute kidney failure, unspecified, N18.31 - Chronic kidney disease, stage 3a, E11.21 - Type 2 diabetes mellitus with diabetic nephropathy, I10 - Essential (primary) hypertension Electrolytes 2 Weeks N17.9 - Acute kidney failure, unspecified, N18.31 - Chronic kidney disease, stage 3a, E11.21 - Type 2 diabetes mellitus with diabetic nephropathy, I10 - Essential (primary) hypertension Blood Urea Nitrogen 2 Weeks N17.9 - Acute kidney failure, unspecified, N18.31 - Chronic kidney disease, stage 3a, E11.21 - Type 2 diabetes mellitus with diabetic nephropathy, I10 - Essential (primary) hypertension Coding Level of Care Code Est Pt Level 4 (66321) Diagnoses Chronic kidney disease, stage 3a N18.31 Primary hypertension I10 Hypertension type: primary hypertension Type 2 diabetes mellitus with diabetic nephropathy, without long-term current use of insulin E11.21 Diabetes mellitus detention insulin use: without detention use PETERSON (acute kidney injury) N17.9
--- OUTSIDE RECORDS SUMMARY | 2024-08-17 12:31 | XMS_ITS | Clinical Summary ---
Author Organization [facility] it Address [address] [place] [address] Care Team Providers Care Ceiling Installer Name Role Phone Lenora Cox NP Primary Care Provider [phone] Social History Tobacco Use Types Packs/Day Years [...] age to complete this topic Care Teams Ceiling Installer Relationship Specialty Start Date End Date Lenora Cox NP [address] [place] [address] [facility] - General 08/12/20
== END 2024-08-17 11:39 | disposition home or self-care (01) ==
LOC: HO.HKAS 10:41
PROVIDERS: PCP Nurse Practitioner Family; Visit Provider Internal Medicine Nephrology
DX: N18.31 Chronic kidney disease, stage 3a (principal); I10 Essential (primary) hypertension; E11.21 Type 2 diabetes mellitus with diabetic nephropathy; N17.9 Acute kidney failure, unspecified
CPT/HCPCS: 99214

== ENCOUNTER → 2024-08-17 10:41 | Outpatient (BNVA) | payer MEDICAID, SELFPAY | PROVIDERS: PCP Nurse Practitioner Family; Visit Provider Internal Medicine Nephrology | DX: N18.31 Chronic kidney disease, stage 3a (principal); I10 Essential (primary) hypertension; E11.21 Type 2 diabetes mellitus with diabetic nephropathy; N17.9 Acute kidney failure, unspecified | CPT/HCPCS: 99212 ==

== ENCOUNTER 2024-09-01 09:50 | Outpatient (REF) | payer MEDICAID, SELFPAY ==
--- OUTSIDE RECORDS SUMMARY | 2024-09-01 10:11 | XMS_ITS | Clinical Summary ---
Author Organization [facility] Address [address] [place] [phone] Phone Care Team Providers Care Produce Laborer Name Role Phone Arti Jimenez TRANSCRIPTIONIST Primary Care Provider [phone] Allergies No known active allergies Medications amitriptyline (ELAVIL) 25 MG tablet Take 1 tablet by mouth 1 (one) time each day Active losartan (COZAAR) 50 MG tablet Take 1 tablet by mouth 2 (two) times a day 9 Active metFORMIN (GLUCOPHAGE) 1000 MG tablet Take 1 tablet by mouth 2 (two) times a day Active Blood Pressure kit 1 kit 8 Active mirtazapine (REMERON) 7.5 MG tablet Take 1 tablet by mouth every night 1 Active omega-3 acid ethyl esters (LOVAZA) 1 g capsule Take 1 g by mouth 1 (one) time each day 1 Active Aspirin Low Dose 81 MG EC tablet Take 81 mg by mouth 1 (one) time each day 1 Active albuterol HFA (PROVENTIL HFA;VENTOLIN HFA) 108 (90 Base) MCG/ACT inhaler Inhale 2 puffs 1 Active acetaminophen (TYLENOL) 500 MG tablet Take 500 mg by mouth if needed Active gabapentin (NEURONTIN) 100 MG capsule Take 1 capsule by mouth every night 2 Active atorvastatin (LIPITOR) 20 MG tablet Take 20 mg by mouth 1 (one) time each day 3 Active ergocalciferol 1.25 MG (05067 UT) capsuleIndicatio ns:Vitamin D deficiency, not otherwise specified TAKE 1 CAPSULE BY MOUTH 1 TIME EVERY WEEK 4 capsule 5 4 Active Dapagliflozin Propanediol (Farxiga) 10 MG tabletIndication s:Microalbuminur ia,Stage 3a chronic kidney disease (HCC) Take 10 mg by mouth 1 (one) time each day in the morning 30 tablet 5 09/08/19 25 Active Dapagliflozin Propanediol (Farxiga) 10 MG tabletIndication s:Microalbuminur ia,Stage 3a chronic kidney disease (HCC) Take 10 mg by mouth 1 (one) time each day in the morning 30 tablet 11 4 08/09/19 25 Discontinu ed(Reorder (does not appear on AVS)) Active Problems Problem Noted Date Diagnosed Date [...] Date Resolved Date Steatosis of liver 12/03/2020 1 Overview (12/17/2020): US RUQ 03/2020 Dizziness 08/03/2020 12/17/2020 Overview (12/17/2020): CT Brain 07/2018 4mm frontal subcorticol calcification No acute abnormality Hepatitis A immune 06/06/2020 1 Overview (06/06/2020): per serology Obese class I [...] He is going to TB clinic at [facility], on Rifampin 12/14/17 - CXR: Impression: no [...] - Stable on Mirtazapine 7.5 mg HQS Encounters Date Type Department Care Team Description 08/08/2024 Orders Only [facility] [address] [facility] [address] [place] [address] Tyshawn Dewitt Microalbuminuria; Stage 3a chronic kidney disease (HCC) 07/06/2024 Refill [facility] [address] [facility] [address] [place] [address] Mer Estrada Vitamin D deficiency, not otherwise specified from Last 3 Months Immunizations Immunization Administration Dates Next Due Hepatitis [...] 08/08/2019 12:00 PM EDT Plan of Treatment Upcoming Encounters Date Type Department Care Team (Late st Contact Info) Description 09/04/2024 8:45 AM EDT Office Visit [facility] P[facility] [address] [address] Alin MerRICH callahan [address] [phone] Health Maintenance Due Date Last Done Comments Hepatitis B Vaccine (1 of 3 - 19+ 3-dose series) 1985 05/31/2012, 02/08/2012, 12/23/2011 Colorectal Cancer Screening: Annual FOBT 2015 Colorectal Cancer Screening: Colonoscopy 2015 Colorectal Cancer Screening: Sigmoidoscopy 2015 Pneumococcal Vaccine: 50+ Ye ars (2 of 2 - PCV) 12/01/2018 12/01/2017 Diabetes: Ophthalmology Exam 03/24/2020 Diabetes: Pedal Pulse Checked 03/24/2020 Diabetes: Sensory Foot Exam 03/24/2020 Diabetes: Visual Foot Exam 03/24/2020 Diabetes: Hemoglobin A1C 07/28/20242 025, 09/23/2023, 02/25/2023, Additional history exists Influenza Vaccine (#1) 2024 5, 11/27/2022, 12/16/2021, Additional history exists Pneumococcal Vaccine: Peds ( 0 to 5 Years) and At-Risk Patients (6 to 49 Years) Discontinued 12/01/2017 [place] Care Teams Produce Laborer Relationship Specialty Start Date End Date Arti Jimenez NP [address] [place] [address] PCP - General Nurse Practitioner 12/17/20
--- OUTSIDE RECORDS SUMMARY | 2024-09-01 10:11 | XMS_ITS ---
Author Organization [facility] Address [address] [place] [address] Care Team Providers Care Science Tutor Name Role Phone Alex Trujillo PA-C Primary Care Provider [phone] [facility] Program Status:Enrolled (Active) Start date:08/01/2024 Enrollment date:08/01/2024 Case Team Name Relationship Phone Tracy Moser RN(Responsible Staff) [phone] Continued Care and Services Coordination
--- OUTSIDE RECORDS SUMMARY | 2024-09-01 10:11 | XMS_ITS | Clinical Summary ---
Author Organization [facility] Address [address] [place] [address] Phone Care Team Providers Care Artillery Officer Name Role Phone Lenora Cox FADI Primary Care Provider [phone] Encounters Date Type Department Care Team Description 08/23/2024 11:53 AM EDT - 08/23/2024 11:59 PM EDT Hospital Encounter [facility] Xray [address] [place] [address] Other general symptoms and signs Discharge Disposition: Home or Self Care from Last 3 Months Social History Tobacco Use Types Packs/Day Years [...] 2023 01/27/2023, 02/26/2021, 06/19/2020, Additional history exists Influenza Vaccine (#1) 2024 , 11/27/2022, 12/16/2021, Additional history exists Diabetes: Blood Sugar Control Test (HGBA1C) 10/28/2024 04/27/2024 Diabetes: Annual Urine Albumin-Creatinine Ratio (uACR) 04/27/2025 04/27/2024, 04/28/2023, 11/15/2019, Additional history exists Diabetes: Annual GFR (Glomerular Filtration Rate) 04/27/2025 04/27/2024 Hypertension/CHF/CAD Annual BMP Blood Test 04/27/2025 04/27/2024 Depression Screening 08/23/2025 08/23/2024 Cholesterol Screening (Lipid Panel) 04/27/2029 04/27/2024, 04/27/2024, 09/23/2023, Additional history exists DTaP,Tdap,and Td Vaccines (5 - Td or Tdap) 11/27/2032 11/27/2022, 05/13/2012, 02/08/2012, Additional history exists Hepatitis B Vaccines Completed 05/31/2012, 02/08/2012, 12/23/2011 HIV Screening Completed 12/01/2017 Hepatitis C Screening Completed 11/29/2020 Zoster Vaccines Completed 12/16/2021, 03/23/2019 Pneumococcal Vaccine: 50+ Years Completed 11/27/2022, 12/01/2017 HIB Vaccines Aged Out No longer eligi [...] on patient's age to complete this topic Procedures Procedure Name Priority Date/Time Associated Diagnosis Comments XR CHEST 2 VIEWS Routine 08/23/2024 12:0 2 PM EDT Other general symptoms and signs from Last 3 Months Results * XR Chest 2 Views (08/23/2024 12:02 PM EDT) Anatomical Region Laterality Modality Body Radiographic Desirae ging 08/23/2024 12:0 5 PM EDT Impressions 08/23/2024 12:06 PM EDT No acute pulmonary disease. Borderline cardiomegaly. No change since 05/24/2021. Code 42481 -------- FINAL REPORT -------- Dictated By: Magdiel Velez Dictated Date: 08/23/2024 12:05 ET Assigned Physician: Magdiel Velez Reviewed and Electronically Signed By: Magdiel Velez Signed Date: 08/23/2024 12:06 ET Workstation ID: [id number] Transcribed By: Self Edit Transcribed Date: 08/23/2024 12:05 ET Narrative 08/23/2024 12:06 PM EDT HISTORY: The patient is a 59-year-old male with cough, dizziness, and chest pain. FINDINGS: PA and lateral radiographs of the chest demonstrate normal appearance of the bony structures. The cardiac silhouette remains borderline enlarged, unchanged since the prior study performed 05/24/2021. The descending thoracic aorta is again seen to be tortuous. The lungs and costophrenic angles are clear. Procedure Note Magdiel Velez MD - 08/23/2024 HISTORY: The patient is a 59-year-old male with cough, dizziness, andchest pain. FINDINGS: PA and lateral radiographs of the chest demonstrate normalappearance of the bony structures. The cardiac silhouette remainsborderline enlarged, unchanged since the prior study performed 05/24/2021.The descending thoracic aorta is again seen to be tortuous. The lungs andcostophrenic angles are clear. IMPRESSION: No acute pulmonary disease. Borderline cardiomegaly. No change since05/24/2021. Code 12449 -------- FINAL REPORT -------- Dictated By: Magdiel Velez Dictated Date: 08/23/2024 12:05 ET Assigned Physician: Magdiel Velez Reviewed and Electronically Signed By: Magdiel Velez Signed Date: 08/23/2024 12:06 ET Workstation ID: [id number] Transcribed By: Self Edit Transcribed Date: 08/23/2024 12:05 ET Alex MERLOS IMG XR PROCEDURES Final Result from Last 3 Months Insurance MEDICAID - [place] Care Teams Artillery Officer Relationship Specialty Start Date End Date Lenora Cox NP [address] [place] [address] PCP - General 08/12/20
[2024-09-01 14:36] LABS: Anion Gap 12 (12-20); Blood Urea Nitrogen 35 mg/dL (9-16); Carbon Dioxide 23 mmol/L (22-29); Chloride 109 mmol/L (96-108); Estimated Glomerular Filt Rate 23; Potassium 4.3 mmol/L (3.3-5.1); Sodium 140 mmol/L (135-145)
== END 2024-09-01 09:51 | disposition home or self-care (01) ==
LOC: HO.HKASLDS 09:50
PROVIDERS: Visit Provider Internal Medicine Nephrology
DX: E11.21 Type 2 diabetes mellitus with diabetic nephropathy (principal); N17.9 Acute kidney failure, unspecified; N18.31 Chronic kidney disease, stage 3a; I10 Essential (primary) hypertension
CPT/HCPCS: 36415; 80051; 82565; 84520

== ENCOUNTER 2024-09-05 13:23 | Outpatient (AMB) | payer MEDICAID, SELFPAY ==
--- NOTE | 2024-09-05 13:38 | HO.NEPHOV_ITS ---
Vital Signs 09/05/24 13:45 09/05/24 13:54 Height 5 ft 5 in Weight 193 lb 2 oz BMI 32.1 BP 120/90 H 128/84 Blood Pressure Location Lt brachial Position Sitting Pulse 84 Pulse Source Pulse Oximeter Pulse Oximetry (%) 95 Oxygen Delivery Method Room Air Intake Visit Reasons: 2wk follow up-Conf Pasting Machine Operator Required: Yes Pasting Machine Operator Language: [facility] Pasting Machine Operator Services: Pasting Machine Operator Offered & Declined ([facility] Pasting Machine Operator services refused, pt accompanied by son ) Accompanied by: Son Allergies No Known Allergies Allergy (Verified 09/05/24 13:44) HPI Comments Details: Pablo is a 59-year-old gentleman whom I had the privilege of seeing in follow-up for his chronic kidney disease and proteinuria. Recently he had PETERSON and his ARB has been discontinued. His BP went up and he went to [facility] and was admitted for further management. He received IV fluids and his creatinine stabilized . Imaging done in the past had shown large kidneys bilaterally. He has longstanding diabetes mellitus with end-organ damage from it. He is currently following his blood pressures and blood sugars closely. He denies any nausea, vomiting, diarrhea, chest pain, orthostatic symptoms. He does not take any nonsteroidal anti-inflammatories. He had no new specific complaints at the time this office visit. He has symptoms suggestive of ELINA. He was accompanied by his son during the office visit [facility] Medical History Type 2 diabetes mellitus with diabetic nephropathy Hypertension Chronic kidney disease, stage 3a Social History Alcohol intake: never Patient Tobacco Use Status: Never used Tobacco Review of Systems Const All systems reviewed & are unremarkable except as noted in HPI and below Physical Exam Const General: comfortable and no acute distress Orientation/consciousness: patient oriented x3 HEENT Head: Yes normocephalic Mouth: Normal oral and palatal mucosa present Eyes EOM: EOMs intact bilaterally Neck Neck: Yes supple Resp Auscultation: clear to auscultation bilaterally Cardio Jugular venous distension: no JVD Rate: regular rate GI Palpation (GI): Soft to palpation Auscultation: normal bowel sounds General: Yes no CVA tenderness Back/Spine/Pelvis Back: no CVA tenderness Skin General skin exam: no rashes or lesions noted Neuro General: patient oriented x3 and moves all extremities Extrem General: Yes no pedal edema Results Reviewed Nephrology Results: Sodium, (135-145) 140 mmol/L 09/01/24 Potassium, (3.3-5.1) 4.3 mmol/L 09/01/24 Chloride, (96-108) 109 mmol/L H 09/01/24 Carbon Dioxide, (22-29) 23 mmol/L 09/01/24 BUN, (9-16) 35 mg/dL H 09/01/24 Creatinine, (0.5-1.4) 2.86 mg/dL H 09/01/24 Calcium, (8.4-10.2) 9.3 mg/dL 08/16/24 PTH Intact, (8.7-77.1) 140.1 pg/mL H 08/03/24 Urine Creatinine 73.99 mg/dL 08/03/24 Protein/Creatinin Ratio, (<0.2) 4.78 H 08/03/24 Assessment & Plan Assessment & Plan (1) PETERSON (acute kidney injury): Code(s): N17.9 - Acute kidney failure, unspecified Category: Medical (2) Chronic kidney disease, stage 3a: Code(s): N18.31 - Chronic kidney disease, stage 3a Category: Medical (3) Hypertension: Code(s): I10 - Essential (primary) hypertension Category: Medical Qualifiers: Hypertension type: primary hypertension Qualified Code(s): I10 - Esse ntial (primary) hypertension (4) Diabetic nephropathy: Code(s): E11.21 - Type 2 diabetes mellitus with diabetic nephropathy Category: Medical Qualifiers: Diabetes mellitus type: type 2 Qualified Code(s): E11.21 - Type 2 diabetes mellitus with diabetic nephropathy Plan Shah has diabetic nephropathy .He developed PETERSON on CKD from tubular injury and his ARB has been discontinued. DDx- progression of diabetic nephropathy. His metformin is on hold. He is on Farxiga. He does not take nonsteroidal anti- inflammatories and maintain good hydration. His urine output is good. I referred him I did not make any other medication changes today. I encouraged him to do blood work before his next visit with me for optimizing his CKD management. All his and his son's questions were answered. Follow-up appointment given Orders: Orders RT PSG in-lab sleep study Today I10 - Essential (primary) hypertension Blood Urea Nitrogen 4 Weeks E11.21 - Type 2 diabetes mellitus with diabetic nephropathy, I10 - Essential (primary) hypertension, N17.9 - Acute kidney failure, unspecified, N18.31 - Chronic kidney disease, stage 3a Electrolytes 4 Weeks E11.21 - Type 2 diabetes mellitus with diabetic nephropathy, I10 - Essential (primary) hypertension, N17.9 - Acute kidney failure, unspecified, N18.31 - Chronic kidney disease, stage 3a Creatinine 4 Weeks E11.21 - Type 2 diabetes mellitus with diabetic nephropathy, I10 - Essential (primary) hypertension, N17.9 - Acute kidney failure, unspecified, N18.31 - Chronic kidney disease, stage 3a Medications: New dapagliflozin propanediol (Farxiga) 10 mg PO QAM 90 tabs 3RF Changed From ergocalciferol (vitamin D2) PO To ergocalciferol (vitamin D2) 50,000 units PO QWEEK 14 caps 1RF Coding Level of Care Code Est Pt Level 4 (34419) Diagnoses PETERSON (acute kidney injury) N17.9 Chronic kidney disease, stage 3a N18.31 Primary hypertension I10 Hypertension type: primary hypertension Diabetic nephropathy associated with type 2 diabetes mellitus E11.21 Diabetes mellitus type: type 2
[2024-09-05 13:45] VITALS: BP 120/90; PULSE 84; O2SAT 95; BMI 32.1
[2024-09-05 13:54] VITALS: BP 128/84
--- OUTSIDE RECORDS SUMMARY | 2024-09-05 14:46 | XMS_ITS | Clinical Summary ---
Author Organization [facility] Address [address] [place] [address] Phone Care Team Providers Care Product Promoter Sales Person Name Role Phone Lenora Cox FADI Primary Care Provider [phone] Encounters Date Type Department Care Team Description 08/23/2024 11:53 AM EDT - 08/23/2024 11:59 PM EDT Hospital Encounter [facility] Xray [address] [place] [address] Other general symptoms and signs [...] Borderline cardiomegaly. No change since 05/24/2021. Code 19564 -------- FINAL REPORT -------- Dictated By: Magdiel Velez Dictated Date: 08/23/2024 12:05 ET Assigned Physician: Magdiel Velez Reviewed and Electronically Signed By: Magdiel Velez Signed Date: 08/23/2024 12:06 ET Workstation ID: [id number] Transcribed By: Self Edit Transcribed Date: 08/23/2024 [...] disease. Borderline cardiomegaly. No change since05/24/2021. Code 59186 -------- FINAL REPORT -------- Dictated By: Magdiel Velez Dictated Date: 08/23/2024 12:05 ET Assigned Physician: Magdiel Velez Reviewed and Electronically Signed By: Magdiel Velez Signed Date: 08/23/2024 12:06 ET Workstation ID: [id number] Transcribed By: Self Edit Transcribed Date: 08/23/2024 12:05 ET Alex MERLOS IMG XR PROCEDURES Final Result from Last 3 Months Insurance MEDICAID - [place] Care Teams Product Promoter Sales Person Relationship Specialty Start Date End Date Lenora Cox NP [address] [place] [phone] PCP - General 08/12/20
--- OUTSIDE RECORDS SUMMARY | 2024-09-05 14:46 | XMS_ITS ---
Author Organization [facility] Address [address] [place] [address] Care Team Providers Care Supervisor Park Workers Name Role Phone Alex Trujillo PA-C Primary Care Provider [phone] [facility] Program Status:Enrolled (Active) Start date:08/01/2024 Enrollment date:08/01/2024 Case Team Name Relationship Phone Tracy Moser RN(Responsible Staff) [phone] Continued Care and Services Coordination
--- OUTSIDE RECORDS SUMMARY | 2024-09-05 14:46 | XMS_ITS | Clinical Summary ---
Author Organization [facility] Address [address] [place] [phone] Phone Care Team Providers Care Carbon Accountant Name Role Phone Arti Jimenez BASIC SCIENCES PROFESSOR Primary Care Provider [phone] Allergies No known active allergies Medications amitriptyline [...] each day 3 Active ergocalciferol 1.25 MG (62575 UT) capsuleIndicatio ns:Vitamin D deficiency, not otherwise [...] He is going to TB clinic at [facility], on Rifampin 12/14/17 - CXR: Impression: no [...] Orders Only [facility] [address] [facility] [address] [place] [address] Tyshawn Dewitt Microalbuminuria; Stage 3a chronic kidney disease (HCC) 07/06/2024 Refill [facility] [address] [facility] [address] [place] [address] Mer Estrada Vitamin D deficiency, [...] Visual Foot Exam 03/24/2020 Diabetes: Hemoglobin A1C 07/28/2024 025, 09/23/2023, 02/25/2023, Additional history exists Influenza Vaccine (#1) 2024 5, 11/27/2022, 12/16/2021, Additional history exists Pneumococcal Vaccine: Peds ( 0 to 5 Years) and At-Risk Patients (6 to 49 Years) Discontinued 12/01/2017 Insurance Medicaid [place] Care Teams Carbon Accountant Relationship Specialty Start Date End Date Arti Jimenez NP [address] [place] [address] PCP - General Nurse Practitioner 12/17/20
== END 2024-09-05 14:20 | disposition home or self-care (01) ==
LOC: HO.HKAS 13:24
PROVIDERS: PCP Nurse Practitioner Family; Visit Provider Internal Medicine Nephrology
DX: N17.9 Acute kidney failure, unspecified (principal); N18.31 Chronic kidney disease, stage 3a; I10 Essential (primary) hypertension; E11.21 Type 2 diabetes mellitus with diabetic nephropathy
CPT/HCPCS: 99214

== ENCOUNTER → 2024-09-05 13:23 | Outpatient (BNVA) | payer MEDICAID, SELFPAY | PROVIDERS: PCP Nurse Practitioner Family; Visit Provider Internal Medicine Nephrology | DX: N18.31 Chronic kidney disease, stage 3a (principal); N17.9 Acute kidney failure, unspecified; I10 Essential (primary) hypertension; E11.21 Type 2 diabetes mellitus with diabetic nephropathy | CPT/HCPCS: 99212 ==

== ENCOUNTER 2024-10-05 10:50 | Outpatient (REF) | payer MEDICAID, SELFPAY ==
--- OUTSIDE RECORDS SUMMARY | 2024-10-05 11:59 | XMS_ITS | Clinical Summary ---
Author Organization [facility] Address [address] [place] [address] Phone Care Team Providers Care Portable Machine Cutter Name Role Phone Lenora Cox FADI Primary Care Provider [phone] Encounters Date Type Department Care Team Description 08/23/2024 11:53 AM EDT - 08/23/2024 11:59 PM EDT Hospital Encounter [facility] Xray [address] [place] [address] Other general symptoms and signs [...] 2023 01/27/2023, 02/26/2021, 06/19/2020, Additional history exists Depression Screening 02/23/2024 Influenza Vaccine (#1) 2024 , 11/27/2022, 12/16/2021, [...] Borderline cardiomegaly. No change since 05/24/2021. Code 24633 -------- FINAL REPORT -------- Dictated By: Magdiel Velez Dictated Date: 08/23/2024 12:05 ET Assigned Physician: Magdiel Velez Reviewed and Electronically Signed By: Magdiel Velez Signed Date: 08/23/2024 12:06 ET Workstation ID: [id number] Transcribed By: Self Edit Transcribed Date: 08/23/2024 [...] disease. Borderline cardiomegaly. No change since05/24/2021. Code 64567 -------- FINAL REPORT -------- Dictated By: Magdiel Velez Dictated Date: 08/23/2024 12:05 ET Assigned Physician: Magdiel Velez Reviewed and Electronically Signed By: Magdiel Velez Signed Date: 08/23/2024 12:06 ET Workstation ID: [id number] Transcribed By: Self Edit Transcribed Date: 08/23/2024 12:05 ET Alex MERLOS IMG XR PROCEDURES Final Result from Last 3 Months Insurance MEDICAID - [place] Care Teams Portable Machine Cutter Relationship Specialty Start Date End Date Lenora Cox NP [address] [place] [address] PCP - General 08/12/20
--- OUTSIDE RECORDS SUMMARY | 2024-10-05 11:59 | XMS_ITS | Clinical Summary ---
Author Organization [facility] Address [address] [place] [address] Care Team Providers Care Business Development Representative Name Role Phone Unavailable Primary Care Provider Unavailabl e Encounters Date Type Department Care Team Description 09/12/2024 Population Health Risk Score [facility] (C3) Department [address] [facility] [address] [place] [phone] Provider, Population Health Generic from Last 3 Months Social History Tobacco Use Types Packs/Day Years Used Date Smoking Tobacco: Never Assessed Sex and Gender Information Value Date Recorded Sex Assigned at Not on file Legal Sex Male 9:16 PM EDT Gender Identity Not on file Sexual Orientation Not on file Plan of Treatment Health Maintenance Due Date Last Done Comments CT Colonography 1966 Colonoscopy 1966 Colorectal Cancer Screening 1966 Depression Screening 1966 FIT DNA/Cologuard 1966 FIT 1966 FOBT 1966 HIV Screening 1966 Lipid Panel 1966 SDOH Screening 1966 Sigmoidoscopy 1966 Disability Screening 1966 Alcohol/Substance Use Screening 1978 Tobacco Screening 1978 Hepatitis C Screening 02/23/1984 DTaP/Tdap/Td Vaccines (1 - Tdap) 1985 Hepatitis B Vaccines (1 of 3 - 19+ 3-dose series) 1985 Pneumococcal Vaccine: 50+ Ye ars (1 of 1 - PCV) 02/23/2016 Zoster Vaccines (1 of 2) 02/23/2016 COVID-19 Vaccine (2023-2 5 season) 2023 Influenza Vaccine (#1) 2024 RSV Patients and Pa tients Aged 60 years or older (1 - 1-dose 75+ series) 2041 HIB Vaccines Aged Out No longer eligi ble based on patient's age to complete this topic HPV Vaccines Aged Out No longer eligi ble based on patient's age to complete this topic Hepatitis A Vaccines Aged Out No long er eligible based on patient's age to complete this topic IPV Vaccines Aged Out No longer eligi ble based on patient's age to complete this topic Meningococcal B Vaccine Aged Out No l onger eligible based on patient's age to complete this topic Meningococcal Vaccine Aged Out No sina neida eligible based on patient's age to complete this topic RSV under 20 months Aged Out No longe r eligible based on patient's age to complete this topic Rotavirus Vaccines Aged Out No longer eligible based on patient's age to complete this topic
--- OUTSIDE RECORDS SUMMARY | 2024-10-05 11:59 | XMS_ITS | Clinical Summary ---
Author Organization [facility] Address [address] [place] [phone] Phone Care Team Providers Care Churn Driller Name Role Phone Arti Jimenez UPPER MARKER Primary Care Provider [phone] Allergies No known active allergies Medications amitriptyline [...] 1 (one) time each day 03/04/2022 Active ergocalciferol 1.25 MG (70243 UT) capsuleIndicatio ns:Vitamin D deficiency, not otherwise specified TAKE 1 CAPSULE BY MOUTH 1 TIME EVERY WEEK 4 capsule 5 12/27/2023 Active Dapagliflozin Propanediol (Farxiga) 10 MG tabletIndication s:Microalbuminur ia,Stage 3a chronic kidney disease (HCC) Take 10 mg by mouth 1 (one) time each day in the morning 30 tablet 08/08/2024 Active Active Problems Problem Noted Date Diagnosed [...] region 03/16/2014 06/07/19 21 Lumbar spondylosis 03/16/2014 1 Overview (06/06/2020): 07/05/17 - XRAY Lumbar spine: small degenerative osteophytes present at L3-L5. Otherwise, normal examination. Lumbar spondylosis 03/16/2014 1 Overview (12/17/2020): 02/01/2010: Xray lumbar: IMPRESSION: No acute findings. Mild degenerative changes. 07/05/17 - XRAY Lumbar spine: small degenerative osteophytes present at L3-L5. Otherwise, normal examination. Inactive tuberculosis of lung 07/06/2013 06/06/2020 Overview (06/06/2020): He is going to TB clinic at [facility], on Rifampin 12/14/17 - CXR: Impression: no [...] Orders Only [facility] [address] [address] Tyshawn Dewitt Microalbuminuria; Stage 3a chronic kidney disease (HCC) 07/06/2024 Refill [facility] [address] [address] Mer Estrada Vitamin D deficiency, not otherwise [...] 2024 , 11/27/2022, 12/16/2021, Additional history exists Pneumococcal Vaccine: Peds ( 0 to 5 Years) and At-Risk Patients (6 to 49 Years) Discontinued 12/01/2017 Insurance Medicaid [place] Care Teams Churn Driller Relationship Specialty Start Date End Date Arti Jimenez FADI [address] [place] [address] PCP - General Nurse Practitioner 12/17/20
--- OUTSIDE RECORDS SUMMARY | 2024-10-05 11:59 | XMS_ITS ---
Author Organization [facility] Address [address] [place] [address] Care Team Providers Care Master Black Belt Name Role Phone Alex Trujillo PA-C Primary Care Provider [phone] SA38 [facility] Program Status:Enrolled (Active) Start date:08/01/2024 Enrollment date:08/01/2024 Case Team Name Relationship Phone Tracy Moser RN(Responsible Staff) [phone] Continued Care and Services Coordination
[2024-10-05 17:59] LABS: Anion Gap 14 (12-20); Blood Urea Nitrogen 31 mg/dL (9-16); Carbon Dioxide 25 mmol/L (22-29); Chloride 108 mmol/L (96-108); Estimated Glomerular Filt Rate 23; Potassium 4.1 mmol/L (3.3-5.1); Sodium 143 mmol/L (135-145)
== END 2024-10-05 10:51 | disposition home or self-care (01) ==
LOC: HO.HKASLDS 10:50
PROVIDERS: Visit Provider Internal Medicine Nephrology
DX: N17.9 Acute kidney failure, unspecified (principal); I12.9 Hypertensive chronic kidney disease with stage 1 through stage 4 chronic kidney disease, or unspecified chronic kidney disease; N18.31 Chronic kidney disease, stage 3a; E11.22 Type 2 diabetes mellitus with diabetic chronic kidney disease
CPT/HCPCS: 36415; 80051; 82565; 84520

== ENCOUNTER 2024-10-10 13:38 | Outpatient (AMB) | payer MEDICAID, SELFPAY ==
--- NOTE | 2024-10-10 14:00 | HO.NEPHOV_ITS ---
Vital Signs 10/10/24 14:01 Height 5 ft 5 in Weight 195 lb 8 oz BMI 32.5 BP 124/88 Blood Pressure Location Lt brachial Position Sitting Pulse 77 Pulse Source Pulse Oximeter Pulse Oximetry (%) 94 Oxygen Delivery Method Room Air Intake Visit Reasons: 4wk f/u w/labs-Conf Clinical Staff Anesthesiologist Required: No Accompanied by: Son Allergies No Known Allergies Allergy (Verified 10/10/24 14:01) HPI Comments Details: Pablo is a 59-year-old gentleman whom I had the privilege of seeing in follow-up for his chronic kidney disease and proteinuria. Recently he had PETERSON and his ARB has been discontinued. His BP went up and he went to [facility] and was admitted for further management. He received IV fluids and his creatinine stabilized . Imaging done in the past had shown large kidneys bilaterally. He has longstanding diabetes mellitus with end-organ damage from it. He is currently following his blood pressures and blood sugars closely. He denies any nausea, vomiting, diarrhea, chest pain, orthostatic symptoms. He does not take any nonsteroidal anti-inflammatories. He had no new specific complaints at the time this office visit. He has symptoms suggestive of ELINA. He has been having edema. He is on Amlodipine. He was accompanied by his son during the office visit [facility] Medical History Type 2 diabetes mellitus with diabetic nephropathy Hypertension Chronic kidney disease, stage 3a Social History Alcohol intake: never Patient Tobacco Use Status: Never used Tobacco Review of Systems Const All systems reviewed & are unremarkable except as noted in HPI and below Physical Exam Vital Signs: Last Vital Signs Pulse 77 10/10/24 14:01 BP 124/88 10/10/24 14:01 Pulse Ox 94 10/10/24 14:01 Oxygen Delivery Method Room Air 10/10/24 14:01 BMI result Body Mass Index 32.5 Const General: comfortable and no acute distress Orientation/consciousness: patient oriented x3 HEENT Head: Yes normocephalic Mouth: Normal oral and palatal mucosa present Eyes EOM: EOMs intact bilaterally Neck Neck: Yes supple Resp Auscultation: clear to auscultation bilaterally Cardio Jugular venous distension: no JVD Rate: regular rate GI Palpation (GI): Soft to palpation Auscultation: normal bowel sounds General: Yes no CVA tenderness Back/Spine/Pelvis Back: no CVA tenderness Skin General skin exam: no rashes or lesions noted Neuro General: patient oriented x3 and moves all extremities Extrem General: Yes no pedal edema Results Reviewed Nephrology Results: Sodium, (135-145) 143 mmol/L 10/05/24 Potassium, (3.3-5.1) 4.1 mmol/L 10/05/24 Chloride, (96-108) 108 mmol/L 10/05/24 Carbon Dioxide, (22-29) 25 mmol/L 10/05/24 BUN, (9-16) 31 mg/dL H 10/05/24 Creatinine, (0.5-1.4) 2.86 mg/dL H 10/05/24 Calcium, (8.4-10.2) 9.3 mg/dL 08/16/24 PTH Intact, (8.7-77.1) 140.1 pg/mL H 08/03/24 Urine Creatinine 73.99 mg/dL 08/03/24 Protein/Creatinin Ratio, (<0.2) 4.78 H 08/03/24 Assessment & Plan Assessment & Plan (1) Hypertension: Code(s): I10 - Essential (primary) hypertension Category: Medical Qualifiers: Hypertension type: primary hypertension Qualified Code(s): I10 - Essential (primary) hypertension (2) Type 2 diabetes mellitus with diabetic nephropathy: Code(s): E11.21 - Type 2 diabetes mellitus with diabetic nephropathy Category: Medical Qualifiers: Diabetes mellitus communications program manager insulin use: without shelter use Qualified Code(s): E11.21 - Type 2 diabetes mellitus with diabetic nephropathy (3) Chronic kidney disease, stage 3a: Code(s): N18.31 - Chronic kidney disease, stage 3a Category: Medical (4) Edema: Code(s): R60.9 - Edema, unspecified Category: Medical Qualifiers: Edema type: unspecified Qualified Code(s): R60.9 - Edema, unspecified Plan Pablo has diabetic nephropathy .He developed PETERSON on CKD from tubular injury and his ARB has been discontinued. DDx- progression of diabetic nephropathy. His metformin is on hold. He is on Farxiga. He does not take nonsteroidal anti- inflammatories and maintain good hydration. His urine output is good. I gave him lasix 20 mg daily for 10 days and D/[place] Amlodpine. I increased his hydralazine to 75 mg bid. He may need more BP medications to keep his BP at goal. All his and his son's questions were answered. Follow-up appointment given Medications: New furosemide (Lasix) 20 mg PO DAILY 10 tabs 0RF Changed From hydralazine 75 mg PO BID To hydralazine 75 mg (1.5 x 50 mg) PO BID 270 tabs 2RF 90 days Coding Level of Care Code Est Pt Level 4 (91125) Diagnoses Primary hypertension I10 Hypertension type: primary hypertension Type 2 diabetes mellitus with diabetic nephropathy, without long-term current use of insulin E11.21 Diabetes mellitus communications program manager insulin use: without communications program manager use Chronic kidney disease, stage 3a N18.31 Edema, unspecified type R60.9 Edema type: unspecified
[2024-10-10 14:01] VITALS: BP 124/88; PULSE 77; O2SAT 94; BMI 32.5
--- OUTSIDE RECORDS SUMMARY | 2024-10-10 14:54 | XMS_ITS ---
Author Organization [facility] Address [address] [place] [address] Care Team Providers Care Film Splicer Name Role Phone Alex Trujillo PA-C Primary Care Provider [phone] SA38 [facility] Program Status:Enrolled (Active) Start date:08/01/2024 Enrollment date:08/01/2024 Case Team Name Relationship Phone Tracy Moser RN(Responsible Staff) [phone] Continued Care and Services Coordination
--- OUTSIDE RECORDS SUMMARY | 2024-10-10 14:54 | XMS_ITS | Clinical Summary ---
Author Organization [facility] Address [address] [place] [address] Phone Care Team Providers Care Front Of House Manager Name Role Phone Lenora Cox FADI Primary Care Provider [phone] Encounters Date Type Department Care Team Description 08/23/2024 11:53 AM EDT - 08/23/2024 11:59 PM EDT Hospital Encounter [facility] Xray [address] [place] [address] Other general symptoms and signs [...] Borderline cardiomegaly. No change since 05/24/2021. Code 11967 -------- FINAL REPORT -------- Dictated By: Magdiel Velez Dictated Date: 08/23/2024 12:05 ET Assigned Physician: Magdiel Velez Reviewed and Electronically Signed By: Magdiel Velez Signed Date: 08/23/2024 12:06 ET Workstation ID: [id number] Transcribed By: Self Edit Transcribed Date: 08/23/2024 [...] disease. Borderline cardiomegaly. No change since05/24/2021. Code 03464 -------- FINAL REPORT -------- Dictated By: Magdiel Velez Dictated Date: 08/23/2024 12:05 ET Assigned Physician: Magdiel Velez Reviewed and Electronically Signed By: Magdiel Velez Signed Date: 08/23/2024 12:06 ET Workstation ID: [id number] Transcribed By: Self Edit Transcribed Date: 08/23/2024 12:05 ET Alex MERLOS IMG XR PROCEDURES Final Result from Last 3 Months Insurance MEDICAID - [place] Care Teams Front Of House Manager Relationship Specialty Start Date End Date Lenora Cox NP [address] [place] [address] PCP - General 08/12/20
--- OUTSIDE RECORDS SUMMARY | 2024-10-10 14:54 | XMS_ITS | Clinical Summary ---
Author Organization [facility] Address [address] [facility] 7t [place] [address] Care Team Providers Care Cpc Name Role Phone Unavailable Primary Care Provider Unavailabl e Encounters Date Type Department Care Team Description 09/12/2024 Population Health Risk Score [facility] (C3) Department [address] [facility] [address] [place] [phone] Provider, Population Health Generic from Last 3 [...] FIT DNA/Cologuard 1966 FIT 1966 FOBT 1966 Lipid Panel 1966 SDOH Screening 1966 Sigmoidoscopy 1966 Disability Screening 1966 Alcohol/Substance Use Screening 1978 Tobacco Screening 1978 Hepatitis C Screening 02/23/1984 Hepatitis A Vaccines (1 of 2 - Risk 2-dose series) 1985 COVID-19 Vaccine ( season) 2023 01/27/2023, 02/26/2021, 06/19/2020, Additional history exists Influenza Vaccine (#1) 2024 , 11/27/2022, 12/16/2021, Additional history exists DTaP/Tdap/Td Vaccines (5 - Td or Tdap) 11/27/2032 11/27/2022, 05/13/2012, 02/08/2012, Additional history exists RSV Patients and Patients Aged 60 years or older (1 - 1-dose 75+ series) 2041 Hepatitis B Vaccines Completed 05/31/2012, 02/08/2012, 12/23/2011 HIV Screening Completed 12/01/2017 Zoster Vaccines Completed 12/16/2021, 03/23/2019 Pneumococcal Vaccine: [...]
--- OUTSIDE RECORDS SUMMARY | 2024-10-10 14:54 | XMS_ITS | Clinical Summary ---
Author Organization [facility] Address [address] [place] [address] [address] [place] [address] Phone Care Team Providers Care Breaker Off Name Role Phone Arti Jimenez MANAGER EDITORIAL Primary Care Provider [phone] Allergies No known active allergies Medications amitriptyline [...] each day 03/04/2022 Active ergocalciferol 1.25 MG (25507 UT) capsuleIndicatio ns:Vitamin D deficiency, not otherwise [...] He is going to TB clinic at [facility], on Rifampin 12/14/17 - CXR: Impression: no [...] Only [facility] [address] [place] [phone] Tyshawn Dewitt Microalbuminuria; Stage 3a chronic kidney disease (HCC) from Last 3 Months Immunizations Immunization Administration [...] Foot Exam 03/24/2020 Diabetes: Hemoglobin A1C 07/28/2024 03 025, 09/23/2023, 02/25/2023, Additional history exists Influenza Vaccine (#1) 2024 , 11/27/2022, 12/16/2021, Additional history exists Pneumococcal Vaccine: Peds ( 0 to 5 Years) and At-Risk Patients (6 to 49 Years) Discontinued 12/01/2017 Insurance Medicaid [place] Medicaid [place] Care Teams Breaker Off Relationship Specialty Start Date End Date Arti Jimenez NP [address] [place] [address] PCP - General Nurse Practitioner 12/17/20
== END 2024-10-10 14:23 | disposition home or self-care (01) ==
LOC: HO.HKAS 13:39
PROVIDERS: PCP Nurse Practitioner Family; Visit Provider Internal Medicine Nephrology
DX: I10 Essential (primary) hypertension (principal); E11.21 Type 2 diabetes mellitus with diabetic nephropathy; N18.31 Chronic kidney disease, stage 3a; R60.9 Edema, unspecified
CPT/HCPCS: 99214

== ENCOUNTER → 2024-10-10 13:38 | Outpatient (BNVA) | payer MEDICAID, SELFPAY | PROVIDERS: PCP Nurse Practitioner Family; Visit Provider Internal Medicine Nephrology | DX: N18.31 Chronic kidney disease, stage 3a (principal); E11.21 Type 2 diabetes mellitus with diabetic nephropathy; I10 Essential (primary) hypertension; R60.9 Edema, unspecified | CPT/HCPCS: 99212 ==

== ENCOUNTER → 2024-10-12 20:30 | Outpatient (REF) | payer MEDICAID, SELFPAY ==
--- OUTSIDE RECORDS SUMMARY | 2024-10-12 21:36 | XMS_ITS | Clinical Summary ---
Author Organization [facility] Address [address] [place] [address] Phone Care Team Providers Care Phlebotomist Name Role Phone Lenora Cox FADI Primary Care Provider Encounters Date Type Department Care Team Description 08/23/2024 11:53 AM EDT - 08/23/2024 11:59 PM EDT Hospital Encounter [facility] Xray [address] [place] [address] Other general symptoms and signs [...] Borderline cardiomegaly. No change since 05/24/2021. Code 93930 -------- FINAL REPORT -------- Dictated By: Magdiel Velez Dictated Date: 08/23/2024 12:05 ET Assigned Physician: Magdiel Velez Reviewed and Electronically Signed By: Magdiel Velez Signed Date: 08/23/2024 12:06 ET Workstation ID: [id number] Transcribed By: Self Edit Transcribed Date: 08/23/2024 [...] disease. Borderline cardiomegaly. No change since05/24/2021. Code 35840 -------- FINAL REPORT -------- Dictated By: Magdiel Velez Dictated Date: 08/23/2024 12:05 ET Assigned Physician: Magdiel Velez Reviewed and Electronically Signed By: Magdiel Velez Signed Date: 08/23/2024 12:06 ET Workstation ID: [id number] Transcribed By: Self Edit Transcribed Date: 08/23/2024 12:05 ET Alex MERLOS IMG XR PROCEDURES Final Result from Last 3 Months Insurance MED[place]ID - [place] Care Teams Phlebotomist Relationship Specialty Start Date End Date Lenora Cox NP [address] [place] [address] PCP - General 08/12/20
--- OUTSIDE RECORDS SUMMARY | 2024-10-12 21:37 | XMS_ITS | Clinical Summary ---
Author Organization [facility] Address [address] [place] [phone] Phone Care Team Providers Care Brass Molder Helper Name Role Phone Arti Jimenez COMPUTER METEOROLOGIST Primary Care Provider [phone] Allergies No known active allergies Medications amitriptyline [...] each day 03/04/2022 Active ergocalciferol 1.25 MG (05157 UT) capsuleIndicatio ns:Vitamin D deficiency, not otherwise [...] is going to [place] clinic [place] [facility] Rifamp[place] 12/14/17 - CXR: Impression: no [...] Only [facility] [address] [place] [phone] Tyshawn Dewitt Microalbuminuria; Stage 3a chronic kidney [...] Exam 03/24/2020 Diabetes: Visual Foot Exam 03/24/2020 Influenza Vaccine (#1) 2024 5, 11/27/2022, 12/16/2021, Additional history exists Diabetes: Hemoglobin A1C 11/23/2024 025, 04/27/2024, 09/23/2023, Additional history exists Pneumococcal Vaccine: Peds ( 0 to 5 Years) and At-Risk Patients (6 to 49 Years) Discontinued 12/01/2017 Insurance Medicaid [place] Medicaid [place] Care Teams Brass Molder Helper Relationship Specialty Start Date End Date Arti Jimenez NP [address] [place] [address] PCP - General Nurse Practitioner 12/17/20
--- OUTSIDE RECORDS SUMMARY | 2024-10-12 21:37 | XMS_ITS | Clinical Summary ---
Author Organization [facility] Address [address] [facility] 7[address] [place] [address] Care Team Providers Care Pharmacist Name Role Phone Unavailable Primary Care Provider Unavailabl e Encounters Date Type Department Care Team Description 09/12/2024 Population Health Risk Score [facility] (C3) Department [address] [facility] [address] [place] [phone] Provider, Population Health Generic from Last 3 [...]
== END ==
LOC: HO.SL 20:30
PROVIDERS: Visit Provider Internal Medicine Nephrology
DX: G47.33 Obstructive sleep apnea (adult) (pediatric) (principal); I10 Essential (primary) hypertension; R06.83 Snoring; R40.0 Somnolence
CPT/HCPCS: 95810

== ENCOUNTER → 2024-10-12 21:38 | Outpatient (BNV) | payer MEDICAID, SELFPAY | PROVIDERS: Visit Provider Internal Medicine | DX: G47.33 Obstructive sleep apnea (adult) (pediatric) (principal); R06.83 Snoring | CPT/HCPCS: 95810 ==

== ENCOUNTER 2024-10-24 15:26 | Outpatient (AMB) | payer MEDICAID, SELFPAY ==
--- NOTE | 2024-10-24 15:32 | HO.NEPHOV ---
Vital Signs 10/24/24 15:38 Height 5 ft 5 in Weight 196 lb BMI 32.6 BP 120/86 Blood Pressure Location Lt brachial Position Sitting Pulse 86 Pulse Source Pulse Oximeter Pulse Oximetry (%) 95 Oxygen Delivery Method Room Air Intake Visit Reasons: 2wk f/u-Conf Operations Research Scientist Required: Yes Operations Research Scientist Language: Albanian Operations Research Scientist Services: Operations Research Scientist Offered & Declined ([facility] [place] mixing machine operator services refused ) Accompanied by: Son Allergies No Known Allergies Allergy (Verified 10/10/24 14:01) HPI Comments Details: Pablo is a 59-year-old gentleman whom I had the privilege of seeing in follow-up for his chronic kidney disease and proteinuria. Recently he had PETERSON and his ARB has been discontinued. His BP went up and he went to [facility] and was admitted for further management. He received IV fluids and his creatinine stabilized . Imaging done in the past had shown large kidneys bilaterally. He has longstanding diabetes mellitus with end-organ damage from it. He is currently following his blood pressures and blood sugars closely. He denies any nausea, vomiting, diarrhea, chest pain, orthostatic symptoms. He does not take any nonsteroidal anti-inflammatories. He had no new specific complaints at the time this office visit. He has symptoms suggestive of ELINA. He was accompanied by his son during the office visit [facility] Medical History Type 2 diabetes mellitus with diabetic nephropathy Hypertension Chronic kidney disease, stage 3a Social History Alcohol intake: never Patient Tobacco Use Status: Never used Tobacco Review of Systems Const All systems reviewed & are unremarkable except as noted in HPI and below Physical Exam Const General: comfortable and no acute distress Orientation/consciousness: patient oriented x3 HEENT Head: Yes normocephalic Mouth: Normal oral and palatal mucosa present Eyes EOM: EOMs intact bilaterally Neck Neck: Yes supple Resp Auscultation: clear to auscultation bilaterally Cardio Jugular venous distension: no JVD Rate: regular rate GI Palpation (GI): Soft to palpation Auscultation: normal bowel sounds General: Yes no CVA tenderness Back/Spine/Pelvis Back: no CVA tenderness Skin General skin exam: no rashes or lesions noted Neuro General: patient oriented x3 and moves all extremities Extrem General: Yes no pedal edema Results Reviewed Nephrology Results: Sodium, (135-145) 143 mmol/L 10/05/24 Potassium, (3.3-5.1) 4.1 mmol/L 10/05/24 Chloride, (96-108) 108 mmol/L 10/05/24 Carbon Dioxide, (22-29) 25 mmol/L 10/05/24 BUN, (9-16) 31 mg/dL H 10/05/24 Creatinine, (0.5-1.4) 2.86 mg/dL H 10/05/24 Assessment & Plan Assessment & Plan (1) Diabetic nephropathy: Code(s): E11.21 - Type 2 diabetes mellitus with diabetic nephropathy Category: Medical Qualifiers: Diabetes mellitus type: type 2 Qualified Code(s): E11.21 - Type 2 diabetes mellitus with diabetic nephropathy (2) CKD stage 3b, GFR 30-44 ml/min: Code(s): N18.32 - Chronic kidney disease, stage 3b Category: Medical (3) Hypertension: Code(s): I10 - Essential (primary) hypertension Category: Medical Qualifiers: Hypertension type: primary hypertension Qualified Code(s): I10 - Essential (primary) hypertension Plan Shah has diabetic nephropathy .He developed PETERSON on CKD from tubular injury and his ARB has been discontinued. DDx- progression of diabetic nephropathy. His metformin is on hold. He is on Farxiga. He does not take nonsteroidal anti-inflammatories and maintain good hydration. His urine output is good. I gave him lasix 20 mg daily for 10 days and D/[place] Amlodpine at the last visit given edema after increasing his hydralazine to 75 mg bid which he should continue at the current dose . He may need more BP medications to keep his BP at goal. All his and his son's questions were answered. Follow-up appointment given Orders: Orders Electrolytes 1 Month E11.21 - Type 2 diabetes mellitus with diabetic nephropathy, I10 - Essential (primary) hypertension, N18.32 - Chronic kidney disease, stage 3b Creatinine 1 Month E11.21 - Type 2 diabetes mellitus with diabetic nephropathy, I10 - Essential (primary) hypertension, N18.32 - Chronic kidney disease, stage 3b Blood Urea Nitrogen 1 Month E11.21 - Type 2 diabetes mellitus with diabetic nephropathy, I10 - Essential (primary) hypertension, N18.32 - Chronic kidney disease, stage 3b Coding Level of Care Code Est Pt Level 4 (82446) Diagnoses Diabetic nephropathy associated with type 2 diabetes mellitus E11.21 Diabetes mellitus type: type 2 CKD stage 3b, GFR 30-44 ml/min N18.32 Primary hypertension I10 Hypertension type: primary hypertension
[2024-10-24 15:38] VITALS: BP 120/86; PULSE 86; O2SAT 95; BMI 32.6
--- OUTSIDE RECORDS SUMMARY | 2024-10-24 16:29 | XMS_ITS | Clinical Summary ---
Author Organization [facility] Address [address] [place] [address] [address] [place] [address] Phone Care Team Providers Care Expense Clerk Name Role Phone Arti Jimenez CLINICAL WRITER Primary Care Provider [phone] Allergies No known active allergies Medications amitriptyline [...] each day 03/04/2022 Active ergocalciferol 1.25 MG (97760 UT) capsuleIndicatio ns:Vitamin D deficiency, not otherwise [...] He is going to TB clinic at [facility], on Rifampin 12/14/17 - CXR: Impression: no [...] Only [facility] [address] [place] [id number] Tyshawn Dewitt Microalbuminuria; Stage 3a chronic kidney [...] to 50 Years) Discontinued 12/01/2017 Insurance Medicaid [place] Care Teams Expense Clerk Relationship Specialty Start Date End Date Arti Jimenez NP [address] [place] [address] PCP - General Nurse Practitioner 12/17/20
--- OUTSIDE RECORDS SUMMARY | 2024-10-24 16:29 | XMS_ITS | Clinical Summary ---
Author Organization [facility] Address [address] [place] [address] Phone Care Team Providers Care Coater Smoking Pipe Name Role Phone Lenora Cox FADI Primary Care Provider [phone] Encounters Date Type Department Care Team Description 08/23/2024 11:53 AM EDT - 08/23/2024 11:59 PM EDT Hospital Encounter [facility] Xray [address] [place] [address] Other general symptoms and signs [...] 01/25/2022 Social Influencers of Health Screening 01/25/2022 Depression Screening 02/23/2024 COVID-19 Vaccine ( season) 2024 01/27/2023, 02/26/2021, 06/19/2020, Additional history exists Influenza [...] Borderline cardiomegaly. No change since 05/24/2021. Code 12359 -------- FINAL REPORT -------- Dictated By: Magdiel Velez Dictated Date: 08/23/2024 12:05 ET Assigned Physician: Magdiel Velez Reviewed and Electronically Signed By: Magdiel Velez Signed Date: 08/23/2024 12:06 ET Workstation ID: [id number] Transcribed By: Self Edit Transcribed Date: 08/23/2024 [...] disease. Borderline cardiomegaly. No change since05/24/2021. Code 71869 -------- FINAL REPORT -------- Dictated By: Magdiel Velez Dictated Date: 08/23/2024 12:05 ET Assigned Physician: Magdiel Velez Reviewed and Electronically Signed By: Magdiel Velez Signed Date: 08/23/2024 12:06 ET Workstation ID: [id number] Transcribed By: Self Edit Transcribed Date: 08/23/2024 12:05 ET Alex MERLOS IMG XR PROCEDURES Final Result from Last 3 Months Insurance MEDICAID - [place] Care Teams Coater Smoking Pipe Relationship Specialty Start Date End Date Lenora Cox NP [address] [place] [address] PCP - General 08/12/20
--- OUTSIDE RECORDS SUMMARY | 2024-10-24 16:29 | XMS_ITS ---
Author Organization [facility] Address [address] [place] [id number] Care Team Providers Care Chief Lock Tender Operator Name Role Phone Alex Trujillo PA-C Primary Care Provider [phone] [facility] Program Status:Enrolled (Active) Start date:08/01/2024 Enrollment date:08/01/2024 Case Team Name Relationship Phone Tracy Moser RN(Responsible Staff) [phone] Continued Care and Services Coordination
--- OUTSIDE RECORDS SUMMARY | 2024-10-24 16:29 | XMS_ITS | Clinical Summary ---
Author Organization [facility] Address [address] [place] [address] Care Team Providers Care Retail Custodial Associate Name Role Phone Alex Trujillo PA-C Primary Care Provider + [phone] Source Comments PLEASE NOTE, if this patient [...] inhalerIndication s:Chronic bronchitis, unspecified chronic bronchitis type (CMS & HHS-HCC) Inhale 2 Puffs into the lungs every 4 (four) hours as needed for shortness of breath or wheezing 8.5 g 1 4 Active blood-glucose meter monitoring kitIndications:Ty pe 2 diabetes mellitus with diabetic nephropathy, without long-term current use of insulin ([facility]) as needed for blood glucose monitoring Freestyle meter please 1 Each 4 Active famotidine (PEPCID) 40 mg tabletIndications :Gastroesophageal reflux disease, unspecified whether esophagitis present Take 1 Tablet by mouth once daily 90 Tablet 1 5 Active gabapentin (NEURONTIN) 100 mg capsuleIndication s:Spondylosis of lumbar region without myelopathy or radiculopathy Take 1 Capsule by mouth nightly at bedtime 90 Capsule 1 5 Active blood sugar diagnostic (FREESTYLE LITE STRIPS) stripsIndications :Type 2 diabetes mellitus with microalbuminuria, without long-term current use of insulin ([facility]) USE ONCE A DAY 100 Each 5 Active FREESTYLE LANCETS 28 gaugeIndications: Type 2 diabetes mellitus with microalbuminuria, without long-term current use of insulin ([facility]) USE ONCE A DAY 100 Each 11 5 Active omega-3 acid ethyl esters (LOVAZA) 1 gram capsuleIndication s:Hypertriglyceri demia Take 1 Capsule by mouth 2 (two) times daily. 180 Capsule 1 5 Active hydrALAZINE (APRESOLINE) 50 mg tablet Take 50 mg by mouth 2 (two) times daily. 5 Active amLODIPine (NORVASC) 10 mg tablet Take 10 mg by mouth once daily. 5 Active dapagliflozin propanediol 10 mg tab Take 10 mg by mouth. 5 Active atorvastatin (LIPITOR) 40 mg tabletIndications :Hypertriglycerid emia,Essential hypertension,Type 2 diabetes mellitus with diabetic nephropathy, without long-term current use of insulin ([facility]) Take 1 Tablet by mouth nightly at bedtime. 90 Tablet 1 5 Active aspirin [address] tabletIndications :Essential hypertension TAKE 1 TABLET BY MOUTH DAILY 90 Tablet 1 5 Active ergocalciferol (VITAMIN D-2) 1,250 mcg (50,000 unit) capsule TAKE 1 CAPSULE BY MOUTH 1 TIME EVERY WEEK Active mirtazapine 7.5 mg tabIndications:Po st traumatic stress disorder TAKE 1 TABLET BY MOUTH EVERY NIGHT AT BEDTIME 90 Tablet 1 Active losartan (COZAAR) 50 mg tablet Take 50 mg by mouth 2 (two) times daily. Active Active Problems Problem Noted Date Diagnosed Date Type 2 diabetes mellitus wit h microalbuminuria, without long-term current use of insulin ([facility]) 08/23/2024 Hypertriglyceridemia 08/23/2024 Suspected glaucoma of both eyes 10/22/2021 Overview (10/22/2021): Per ophthalmology report 10/17/21 Gastroesophageal reflux disease without esophagi tis 07/23/2021 Fatty infiltration of liver 12/03/2020 Overview (12/03/2020): US RUQ 03/2020 Nonspecific dizziness 08/03/2020 Overview (08/03/2020): CT Brain 07/2018 4mm frontal subcorticol calcification No acute abnormality Benign hypertensive renal disease 06/06/2020 Chronic kidney disease, stage 3a ([facility]) 06/06/2020 Overview (05/20/2022): Seeing [facility]. Last consult [...] He is going to TB clinic at [facility], on Rifampin 12/14/17 - CXR: Impression: no acute pulmonary disease and no significant change from 06/23/16. A faint 4 mm L mid-lung nodule is stable. There is no radiographic evidence of active TB. Microalbuminuric diabetic nephropathy ([facility]) 04/05/2013 Anxiety and depression 04/05/2013 Overview (04/06/2018): Referred from psych back to PCP on 04/06/18 - Stable on Mirtazapine 7.5 mg HQS Type 2 diabetes mellitus wit h diabetic nephropathy, without long-term current use of insulin ([facility]) Overview (06/13/2017): 02/24/13reat: 1.05, GFR: >60%, LDL: [...] 07/06/2013 11/13/19 17 Overview (07/06/2013): When in [place] patient had Cath done (per son) and was normal. This was performed due to c/o angina type pain which he continues to have Encounters Date Type Department Care Team Description 09/19/2024 1:20 PM EDT Office Visit [address] [phone] Tracy Moser RN 09/11/2024 9:40 AM EDT Telemedicine Visit [address] [phone] Alex Trujillo PA-C 08/31/2024 9:00 AM EDT BH/MH Visits [facility] [address] [place] [phone] Kannan Dixon LCSW Tiwari, Bhanu 08/31/2024 Results Follow-Up [address] [phone] Alex Trujillo PA-C 08/23/2024 10:00 AM EDT Office Visit [address] [phone] Alex Trujillo PA-C 08/01/2024 1:20 PM EDT Office Visit [address] [phone] Tracy Moser RN Tiwari, Bhanu 07/27/2024 9:00 AM EDT BH/MH Visits [facility] [address] [place] [phone] Kannan Dixon LCSW Tiwari, Bhanu from Last 3 Months Immunizations Immunization Administration Dates Next Due Flu, Preservative Free 11/27/2022,2021,02/26/2021,11/19,12/20/2018,12/01/2017,11/12/2016 Hep B, Adult/Adol ([id number]/RECOMBIVAX-ADULT) 05/31/2012,05/31/2012,02/08/2012,02/07,12/23/2011,12/23/2011 INFLUENZA, SEASONAL, INJECTABLE 12/14/19 15,03/16/2014,12/06/2012,12/06,12/23/2011,12/23/2011 Influenza (FLUBLOK),recombinant,injectable,prese rvative Free 04/27/2024 Influenza (FLUZONE), high-do se, trivalent, PF 2014 Moderna COVID-19 (Spikevax), Mrna, Lnp-s, Pf, 50 Mcg/0.5 Ml, 12yr+ 01/27/2023 Moderna COVID-19 Vaccine, re d cap blue label, 12+ Primary Series 06/19/2020,05/22/2020 PFIZER COVID VACCINE, PURPLE CAP, 12+ 02/26/2021 PNEUMOCOCCAL CONJUGATE PCV 2 0 (Prevnar 20) 11/27/2022 PNEUMOCOCCAL POLYSACCHARIDE PPV23 (Pneumovax 23) 12/01/2017 TDAP 11/27/2022,12/23/2011,12/23/2011 Td (adult),2 Lf tetanus toxo id (TDVAX), preservative free 05/13/2012,05/13/2012,02/08/2012,02/07 ZOSTER VACCINE, RECOMBINANT (SHINGRIX) 2,03/23/2019 Social History Tobacco Use Types Packs/Day Years Used Date Smoking Tobacco: Former Smokeless Tobacco: Former Tobacco Cessation:Counseling Given: Yes Alcohol Use Standard Drinks/Week Comments No 0 (1 standard drink = 0.6 oz pur e alcohol) Social Connections Answer Date Recorded How often do you feel lonely or isolated from th ose around you? 1 09/11/2024 Financial Resource Strain Answer Date R ecorded Hard to pay for: Food 1 09/11/2024 Stress Answer Date Recorded Do you feel these kinds of stress these days? 1 09/11/2024 Physical Activity Answer Date Recorded Physical Activity 0 10/12/2018 Food Insecurity Answer Date Recorded Hard to pay for: Food 1 09/11/2024 Transportation Needs Answer Date Record ed Hard to pay for: Transportation 1 09/11/2024 Housing Stability Answer Date Recorded Hard to pay for: Rent/Mortgage payment 1 04/27/2024 Safety and Environment Answer Date David rded Safety 0 01/27/2023 Utilities Answer Date Recorded Hard to pay for: Utilities 1 09/11 Employment Answer Date Recorded Employment 0 10/12/2018 Sex and Gender Information Value Date Recorded Sex Assigned at Male 03/29/2017 6:13 AM PST Legal Sex Male 7:27 AM PST Gender Identity Male 03/29/2017 6:13 AM PST Sexual Orientation Straight 03/29/2017 6: 13 AM PST Last Filed Vital Signs Vital Sign Reading Time Taken Comments Blood Pressure 134/94 09/19/2024 1:35 PM EDT Pulse 88 09/19/2024 1:35 PM EDT Temperature 36.7 C (98.1 F) 08/23/2024 10:27 AM EDT Respiratory Rate 18 08/23/2024 10:27 AM EDT Oxygen Saturation 95% 08/23/2024 10:27 AM EDT Inhaled Oxygen Concentration - - Weight 86.6 kg (191 lb) 09/11/2024 9:43 AM EDT Height 167.6 cm (5' 6 ) 09/11/2024 9:43 AM EDT Body Mass Index 30.83 09/11/2024 9:43 AM EDT Plan of Treatment Upcoming Encounters Date Type Department Care Team (Late st Contact Info) Description 10/26/2024 10:00 AM EDT Office Visit [address] [phone] Tracy Moser, JOSUE [address] [place] [phone] 11/02/2024 10:00 AM EDT / Visits [facility] [phone] [place] [phone] Kannan Dixon LCSW [address] [place] [phone] [address] [place] [address] Health Maintenance Due Date Last Done Comments CT Colonography 2011 FIT/gFOBT 2011 Fecal DNA 2011 Flexible Sigmoidoscopy 2011 Colonoscopy 12/22/2021 12/22/2016 Colorectal Cancer Screening 12/22/2021 [id number] ( season) 2023 01/27/2023, 02/26/2021, 06/19/2020, Additional history exists Diabetes Foot Exam 11/28/2023 11/27/2022, 1 , 11/05/2020, Additional history exists Dental BW 12/01/2023 11/28/2022 Dental Perio Charting 12/01/2023 11/28/2022 Dental Prophy 12/12/2023 06/10/2023, 11/28/2022 Dental Examination 06/11/2024 06/10/2023, 11/28/2022 Imm-Influenza (#1) 2024 04/27/2024, 1 , 12/16/2021, Additional history exists Retinopathy Screening 10/26/2024 10/27/2023 , 10/21/2022, 10/17/2021, Additional history exists Hemoglobin A1c 11/23/2024 08/23/2024, 0307/2024, 09/23/2023, Additional history exists Depression Monitoring 12/12/2024 09/11/2024 , 08/23/2024, 04/27/2024, Additional history exists Annual Wellness (Adult): Ind icated (All Coverage) 04/27/2025 04/27/2024, 01/27/2023, 11/27/2022, Additional history exists Urine Albumin Creatinine Rat io Screening 04/27/2025 04/27/2024, 01/19/2024, 04/28/2023, Additional history exists Lipid Screening 08/23/2025 08/23/2024, 03/0 07/2024, 09/23/2023, Additional history exists Serum Creatinine 08/23/2025 08/23/2024, 07/2024, 01/19/2024, Additional history exists Anxiety Screening 09/11/2025 09/11/2024 Tobacco Screening 09/11/2025 09/11/2024 Dental FMX/Pano 12/01/2027 11/28/2022 Imm-DTaP/Tdap/Td (8 - Td or Tdap) 11/27/2032 11/27/2022, 05/13/2012, 05/13/2012, Additional history exists Imm-Hepatitis B Completed 05/31/2012, 04/0 10/2012, 02/08/2012, Additional history exists HIV Screening Completed 12/01/2017 Hepatitis C Screening Completed 11/29/2020, 020 Imm-Zoster, Recombinant Completed 12/16/2021, 03/23 Imm-Pneumococcal 50+ Completed 11/27/2022, 12/02/19 18 Alcohol and Drug Screen Completed 09/12/19, 08/23/2024, 04/27/2024, Additional history exists Goals Goal Patient Goal Type Associated Problems Recent Progress Patient-Stated? Author monitor bp daily General Yes Tracy Moser RN Remain at or Below Target Blood Pressure General No Tracy Moser, field representatives director Procedure Name Priority Date/Time Associated Diagnosis Comments REFERRAL SCANNED DOCUMENT 10/10/2024 3:00 AM EDT REFERRAL SCANNED DOCUMENT 09/05/2024 3:00 AM EDT REFERRAL SCANNED DOCUMENT 09/05/2024 3:00 AM EDT LIPID PANEL Routine 08/23/2024 11:23 AM EDT Hypertriglyceridemia Type 2 diabetes mellitus with microalbuminuria, without long-term current use of insulin ([facility]) Essential hypertension HEMOGLOBIN GLYCOSYLATED A1C Routine 08/23/2024 11:23 AM EDT Type 2 diabetes mellitus with microalbuminuria, without long-term current use of insulin ([facility]) COMPREHENSIVE METABOLIC PANEL Routine 08/23/2024 11:23 AM EDT Hypertriglyceridemia Type 2 diabetes mellitus with microalbuminuria, without long-term current use of insulin ([facility]) Essential hypertension BLOOD COUNT COMPLETE AUTO&AUTO DIFRNTL WBC Routine 08/23/2024 11:23 AM EDT Hypertriglyceridemia Type 2 diabetes mellitus with microalbuminuria, without long-term current use of insulin ([facility]) Essential hypertension INFLUENZA A AND B, ALERE (POCT) Routine 08/23/2024 10:59 AM EDT Flu-like symptoms COVID-19, ID NOW, M[place] (POCT) Routine 08/23/2024 10:59 AM EDT Flu-like symptoms XR CHEST 2V Routine 08/23/2024 3:00 AM EDT Flu-like symptoms REFERRAL SCANNED DOCUMENT 08/17/2024 3:00 AM EDT MICROALBUMIN/CREATINI NE RATIO, URINE, RANDOM Routine 04/27/2024 9:16 AM EST Type 2 diabetes mellitus with diabetic nephropathy, without long-term current use of insulin ([facility]) EYE EXAM 10/27/2023 3:00 AM EDT Full [...] nephropathy, without long-term current use of insulin ([facility]) ANTIBODY HIV-1&HIV-2 SINGLE RESULT Routine 12/01/2017 9:34 AM EDT Routine lab draw COLONOSCOPY Routine 12/22/2016 9:00 AM EDT from Last 3 Months or Most Recently Relevant to Health Maintenance Results * REFERRAL SCANNED DOCUMENT (10/10/2024 3:00 AM EDT) Only the most recent of4 resultswithin the time period is included. 10/10/2024 3:00 AM EDT Arti Jimenez PHYSICAL SECURITY SPECIALIST-C SCAN REFERRAL Final Result * (ABNORMAL) BLOOD COUNT COMPLETE AUTO&AUTO DIFRNTL WBC Routine (08/23/2024 11:23 AM EDT) WHITE BLOOD CELL COUNT 6.4 3.8 - 10.8 Thousand/ uL [facility] RED BLOOD CELL COUNT 6.17(H) 4.20 - 5.80 Million/u L [facility] HEMOGLOBIN 17.9(H) 13.2 - 17.1 g/dL [facility] HEMATOCRIT 56.3(H) 38.5 - 50.0 % [facility] MCV 91.2 80.0 - 100.0 fL [facility] MCH 29.0 27.0 - 33.0 pg [facility] MCHC 31.8(L) 32.0 - 36.0 g/dL [facility] Comment: For adults, a slight decrease in the calculated MCHC value (in the range of 30 to 32 g/dL) is most likely not clinically significant; however, it should be interpreted with caution in correlation with other red cell parameters and the patient's clinical condition. RDW 14.1 11.0 - 15.0 % [facility] PLATELET COUNT 254 140 - 400 Thousand/ uL [facility] MPV 10.8 7.5 - 12.5 fL [facility] ABSOLUTE NEUTROPHILS 3,526 1,500 - 7,800 cells/uL [facility] ABSOLUTE LYMPHOCYTES 2,176 850 - 3,900 cells/uL [facility] ABSOLUTE MONOCYTES 339 200 - 950 cells/uL [facility] ABSOLUTE EOSINOPHILS 307 15 - 500 cells/uL [facility] ABSOLUTE BASOPHILS 51 0 - 200 cells/uL [facility] NEUTROPHILS PCT 55.1 % Q[facility] [employer] LYMPHOCYTES 34.0 % [facility] [employer] MONOCYTES 5.3 % [facility] [employer] EOSINOPHILS 4.8 % [facility] AGNHennes[facility] WellnessS [employer] BASOPHILS 0.8 % [facility] [employer] Blood Blood / Unknown 08/23/2024 1 1:23 AM EDT 08/23/2024 11:23 AM EDT Alex Trujillo PA-C LAB - BLOOD DRAW Edited Resu lt - Final Performing Organization Address City/[facility]/ZIP Co de Phone Number [employer] [facility] [address] [address], [employer] [address] [address] * (ABNORMAL) HEMOGLOBIN GLYCOSYLATED A1C Routine (08/23/2024 11:23 AM EDT) HEMOGLOBIN A1C 7.0(H) <5.7 % [employer] [facility] Comment: For someone without known diabetes, a hemoglobin A1c value of 6.5% or greater indicates that they may have diabetes and this should be confirmed with a follow-up test. For someone with known diabetes, a value <7% indicates that their diabetes is well controlled and a value greater than or equal to 7% indicates suboptimal control. A1c targets should be individualized based on duration of diabetes, age, comorbid conditions, and other considerations. Currently, no consensus exists regarding use of hemoglobin A1c for diagnosis of diabetes for children. Blood Blood / Unknown 08/23/2024 1 1:23 AM EDT 08/23/2024 11:23 AM EDT Alex Trujillo PA-C LAB - BLOOD DRAW Edited Resu lt - Final Performing Organization Address [facility] Co de Phone Number [employer] [facility] [address] [address], [employer] [address] [address] * (ABNORMAL) LIPID PANEL Routine (08/23/2024 11:23 AM EDT) CHOLESTEROL, TOTAL 151 <200 mg/dL [employer] [facility] HDL CHOLESTEROL 36(L) > OR = 40 mg/dL [employer] [facility] TRIGLYCERIDES 309(H) <150 mg/dL [employer] [facility] Comment: If a non-fasting specimen was collected, consider repeat triglyceride testing on a fasting specimen if clinically indicated. Steve et al. J. of Clin. Lipidol. 2015;9:129-169. LDL-CHOLESTEROL 78 99 mg/dL (calc) [facility] Comment: Reference range: <100 Desirable range <100 mg/dL for primary prevention; <70 mg/dL for patients with CHD or diabetic patients with > or = 2 CHD risk factors. LDL-C is now calculated using the Raz calculation, which is a validated novel method providing better accuracy than the Friedewald equation in the estimation of LDL-C. Chencho ESCALONA et al. JENNIFER. 2013;310(19): 0690-3357 (http://education.Kermdinger Studios/faq/GMD121) CHOL/HDLC RATIO 4.2 <5.0 (calc) [facility] NON-HDL CHOLESTEROL 115 <130 mg/dL (calc) [facility] Comment: For patients with diabetes plus 1 major ASCVD risk factor, treating to a non-HDL-C goal of <100 mg/dL (LDL-C of <70 mg/dL) is considered a therapeutic option. Blood Blood / Unknown 08/23/2024 1 1:23 AM EDT 08/23/2024 11:23 AM EDT us Alex Trujillo PA-C LAB - BLOOD DRAW Final Resul t [employer] [address] [place] [id number], [facility] [address] [place] [phone] * (ABNORMAL) COMPREHENSIVE METABOLIC PANEL Routine (08/23/2024 11:23 AM EDT) GLUCOSE 158(H) 65 - 99 mg/dL [facility] Comment: Fasting reference interval For someone without known diabetes, a glucose value >125 mg/dL indicates that they may have diabetes and this should be confirmed with a follow-up test. UREA NITROGEN (BUN) 26(H) 7 - 25 mg/dL [facility] CREATININE (blood) 2.63(H) 0.70 - 1.30 mg/dL [facility] EGFR 27(L) > OR = 60 mL/min/1. 73m2 [facility] BUN/CREATININE RATIO 10 6 - 22 (calc) [facility] SODIUM 140 135 - 146 mmol/L [facility] POTASSIUM 4.6 3.5 - 5.3 mmol/L [employer] [facility] CHLORIDE 106 98 - 110 mmol/L [employer] [facility] CARBON DIOXIDE 28 20 - 32 mmol/L [employer] [facility] CALCIUM 9.8 8.6 - 10.3 mg/dL [employer] [facility] PROTEIN, TOTAL 7.1 6.1 - 8.1 g/dL [facility] [employer] [facility] ALBUMIN 4.3 3.6 - 5.1 g/dL [employer] [facility] GLOBULIN 2.8 1.9 - 3.7 g/dL (calc) [employer] [facility] ALBUMIN/GLOBULI N RATIO 1.5 1.0 - 2.5 (calc) [employer] [facility] BILIRUBIN, TOTAL 0.6 0.2 - 1.2 mg/dL [employer] [facility] ALKALINE PHOSPHATASE 83 35 - 144 U/L [employer] [facility] AST 21 10 - 35 U/L [employer] [facility] ALT 30 9 - 46 U/L [employer] [facility] Blood Blood / Unknown 08/23/2024 1 1:23 AM EDT 08/23/2024 11:23 AM EDT AliciaKlarnajune MERLOS-C LAB - BLOOD DRAW Final Resul t Performing Organization Address City/[facility]/ZIP Co de Phone Number [employer] [address] [address], [employer] [address] [phone] * INFLUENZA A AND B, ALERE (POCT) Nasal NASAL Routine (08/23/2024 10:59 AM EDT) INFLUENZA A NEGATIVE NEGATIVE [facility] POCT INFLUENZA B NEGATIVE NEGATIVE [facility] POCT INTERNAL CONTROL PASS PASS [facility] POCT NASAL Nasal structure / Unknown 08/23/2024 10:59 AM EDT [employer] RosKlarnar Trujillo PA-C LAB BODY FLUIDS AND STOOLS A MBULATORY Final Result [facility] POCT * COVID-19, ID NOW, [place] (POCT) Nasal Swab Routine (08/23/2024 10:59 AM EDT) COVID-19 NEGATIVE NEGATIVE [facility] POCT INTERNAL CONTROL PASS PASS [facility] POCT Swab Nasal structure / Unknown 08/23/2024 10:59 AM EDT Alex Trujillo PA-C LAB BODY FLUIDS AND STOOLS A MBULATORY Final Result Performing Organization Address [facility] Co de Phone Number [facility] POCT * XR CHEST 2V (08/23/2024 3:00 AM EDT) 08/23/2024 3:00 AM EDT Alex Trujillo PA-C IMG XRAY Final Result Performing Organization Address [facility] Co de Phone Number [facility] Corporate Office [address], [address] [place] [address], * (ABNORMAL) MICROALBUMIN/CREATININE RATIO, URINE, RANDOM (04/27/2024 9:16 AM EST) CREATININE, RANDOM URINE 113 20 - 320 mg/dL [employer] [facility] MICROALBUMIN 322.0 mg/dL [employer] [facility] Comment: Verified by repeat analysis. Reference Range Not established MICROALBUMIN/CREA TININE RATIO, RANDOM URINE 2,850(H) <30 mg/g creat [employer] [facility] Comment: The ADA defines abnormalities in albumin excretion as follows: Albuminuria Category Result (mg/g creatinine) Normal to Mildly increased <30 Moderately increased 30-299 Severely increased > OR = 300 The ADA recommends that at least two of three specimens collected within a 3-6 month period be abnormal before considering a patient to be within a diagnostic category. Urine Urine specimen / Unknown 04/27/2024 9:16 AM EST 04/27/2024 9:17 AM EST Alex Trujillo PA-C LAB URINE AMBULATORY Final R esult Performing Organization Address [facility]/State/ZIP Co de Phone Number [facility] [address] [address], [employer] [address] [phone] * EYE EXAM (10/27/2023 3:00 AM EDT) 10/27/2023 3:00 AM EDT Alex Trujillo PA-C OTHER Edited Resul t - Final * HEPATITIS PANEL W/RFLX (11/29/2020 10:41 AM EDT) HEPATITIS A IGM ANTIBODY NON-REACT GERI NON-REACT GERI [employer] [facility] COMMENT [employer] [facility] HEPATITIS B SURFACE ANTIGEN NON-REACT GERI NON-REACT GERI [employer] [facility] HEPATITIS B CORE IGM ANTIBODY NON-REACT GERI NON-REACT GERI [employer] [facility] HEPATITIS C ANTIBODY NON-REACT GERI NON-REACT GERI [employer] [facility] SIGNAL TO CUT-OFF 0.02 <1.00 [employer] [facility] Comment: HCV antibody was non-reactive. There is no laboratory evidence of HCV infection. In most cases, no further action is required. However, if recent HCV exposure is suspected, a test for HCV RNA (test code 97019) is suggested. For additional information please refer to http://Cask.Basisnote AG.SpeedTax/faq/CUE89h3 (This link is being provided for informational/ educational purposes only.) Blood Blood / Unknown 11/29/2020 1 0:41 AM EDT 11/29/2020 10:41 AM EDT Narrative [facility] - 11/30/2020 12:21 PM EDT For additional information, please refer to http://Cask.H[employer]Yak [employer] Video/faq/XOP602 (This link is being provided for informational/ educational purposes only.) Arti RAVIP-C LAB - BLOOD DRAW Final Resul t [facility] [address] [address], [employer] [address] [place] [address] * REFERRAL TO PODIATRY (11/26/2020 3:00 AM EDT) 11/26/2020 3:00 AM EDT Arti Jimenez PHYSICAL SECURITY SPECIALIST-C REFERRAL Edited Resul t - Final * HIV-1 & HIV-2 ANTIBODIES (12/01/2017 9:34 AM EDT) [facility] HIV 1 AND 2 ANTIBODY SCREEN NEGATIVE NEGATIVE [facility] Comment: This assay is a 4th generation assay allowing for earlier detection of HIV infection by detecting the presence of the HIV-1 p24 antigen as well as the traditional antibodies to HIV type 1 (including group O) and type 2. Use of a 4th generation assay is the current CDC recommendation for HIV screening. Blood specimen (specimen) Blood / Unknown 12/01/2017 9:34 AM EDT 12/01/2017 10:09 AM EDT Narrative [facility] - 12/01/2017 1:03 PM EDT [place] [address] [place] [address] PT ID [id number] ORD# [id number] Joana Workman PA-C LAB - BLOOD [place] [address], * COLONOSCOPY (12/22/2016 9:00 AM EDT) Impressions Connie Felton MA - 12/22/2016 9:00 AM EDT Colonoscopy impressions: mild gastritis, aborted colonoscopy Pathology 12/23/2016 Reactive gastropathy, mild Repeat 1 year Provider [place] PROCEDURES Final Result from Last 3 Months or Most Recently Relevant to Health Maintenance Insurance [facility] [place] [phone] [employer]AF[employer] NET DENTAL [facility] Care Teams Retail Custodial Associate Relationship Specialty Start Date End Date Alex Trujillo PA-C [address] [place] [address] PCP - General FAMILY MEDICINEGAURANG 01/21/23
--- OUTSIDE RECORDS SUMMARY | 2024-10-24 16:29 | XMS_ITS | Clinical Summary ---
Author Organization [facility] Address [address] [place] [address] Care Team Providers Care Integrated Marketing Specialist Name Role Phone Unavailable Primary Care Provider Unavailabl e Encounters Date Type Department Care Team Description 09/12/2024 Population Health Risk Score [facility] (C3) Department [address] [place] [id number] Provider, Population Health Generic from Last 3 [...] 2-dose series) 1985 COVID-19 Vaccine ( season) 2024 01/27/2023, 02/26/2021, [...]
== END 2024-10-24 15:54 | disposition home or self-care (01) ==
LOC: HO.HKAS 15:27
PROVIDERS: PCP Nurse Practitioner Family; Visit Provider Internal Medicine Nephrology
DX: E11.21 Type 2 diabetes mellitus with diabetic nephropathy (principal); N18.32 Chronic kidney disease, stage 3b; I10 Essential (primary) hypertension
CPT/HCPCS: 99214

== ENCOUNTER → 2024-10-24 15:26 | Outpatient (BNVA) | payer MEDICAID, SELFPAY | PROVIDERS: PCP Nurse Practitioner Family; Visit Provider Internal Medicine Nephrology | DX: I10 Essential (primary) hypertension (principal); N18.32 Chronic kidney disease, stage 3b; E11.21 Type 2 diabetes mellitus with diabetic nephropathy | CPT/HCPCS: 99212 ==

== ENCOUNTER 2024-11-14 13:27 | Outpatient (AMB) | payer MEDICAID, SELFPAY ==
--- NOTE | 2024-11-14 13:30 | HO.NEPHOV ---
Vital Signs 11/14/24 13:35 Height 5 ft 5 in Weight 194 lb BMI 32.3 BP 146/100 H Blood Pressure Location Lt brachial Position Sitting Pulse 91 Pulse Source Pulse Oximeter Pulse Oximetry (%) 95 Oxygen Delivery Method Room Air Intake Visit Reasons: High BP Seen at [facility] 11/11/24 Handtools Repairer Required: Yes Handtools Repairer Language: Welsh Handtools Repairer Services: Handtools Repairer [place] [place] Accompanied by: Son Allergies No Known Allergies Allergy (Verified 11/14/24 13:34) HPI Comments Details: Pablo is a 59-year-old gentleman whom I had the privilege of seeing in follow-up for his chronic kidney disease and proteinuria. He was seen in [facility] for high BP and his medications has been adjusted. Recently he had PETERSON and his ARB has been discontinued. Imaging done in the past had shown large kidneys bilaterally. He has longstanding diabetes mellitus with end-organ damage from it. He is currently following his blood pressures and blood sugars closely. He denies any nausea, vomiting, diarrhea, chest pain, orthostatic symptoms. He does not take any nonsteroidal anti-inflammatories. He has symptoms suggestive of ELINA. He was accompanied by his son during the office visit [facility] Medical History Type 2 diabetes mellitus with diabetic nephropathy Hypertension Chronic kidney disease, stage 3a Social History Alcohol intake: never Patient Tobacco Use Status: Never used Tobacco Review of Systems Const All systems reviewed & are unremarkable except as noted in HPI and below Physical Exam Const General: comfortable and no acute distress Orientation/consciousness: patient oriented x3 HEENT Head: Yes normocephalic Mouth: Normal oral and palatal mucosa present Eyes EOM: EOMs intact bilaterally Neck Neck: Yes supple Resp Auscultation: clear to auscultation bilaterally Cardio Jugular venous distension: no JVD Rate: regular rate GI Palpation (GI): Soft to palpation Auscultation: normal bowel sounds General: Yes no CVA tenderness Back/Spine/Pelvis Back: no CVA tenderness Skin General skin exam: no rashes or lesions noted Neuro General: patient oriented x3 and moves all extremities Extrem General: Yes no pedal edema Assessment & Plan Assessment & Plan (1) Hypertension: Code(s): I10 - Essential (primary) hypertension Category: Medical Qualifiers: Hypertension type: primary hypertension Qualified Code(s): I10 - Essential (primary) hypertension (2) CKD stage 3b, GFR 30-44 ml/min: Code(s): N18.32 - Chronic kidney disease, stage 3b Category: Medical (3) Diabetic nephropathy: Code(s): E11.21 - Type 2 diabetes mellitus with diabetic nephropathy Category: Medical Qualifiers: Diabetes mellitus type: type 2 Qualified Code(s): E11.21 - Type 2 diabetes mellitus with diabetic nephropathy Plan Shah has diabetic nephropathy .He has H/O PETERSON on CKD from tubular injury and his ARB has been discontinued. DDx- progression of diabetic nephropathy. His metformin is on hold. He is on Farxiga. He does not take nonsteroidal anti-inflammatories and maintain good hydration. His urine output is good. I started him on Carvedilol 12.5 mg bid. He may need more BP medications to keep his BP at goal. All his and his son's questions were answered. Follow-up appointment given Medications: New carvedilol must administer with a meal/food 12.5 mg PO BID 60 tabs 3RF 30 days Coding Level of Care Code Est Pt Level 4 (38957) Diagnoses Primary hypertension I10 Hypertension type: primary hypertension CKD stage 3b, GFR 30-44 ml/min N18.32 Diabetic nephropathy associated with type 2 diabetes mellitus E11.21 Diabetes mellitus type: type 2
[2024-11-14 13:35] VITALS: BP 146/100; PULSE 91; O2SAT 95; BMI 32.3
--- OUTSIDE RECORDS SUMMARY | 2024-11-14 16:31 | XMS_ITS ---
Author Organization [facility] Address [address] [place] [id number] Care Team Providers Care Transcribing Operators Supervisor Name Role Phone Alex Trujillo PA-C Primary Care Provider + [phone] [facility] Program Status:Enrolled (Active) Start date:08/01/2024 Enrollment date:08/01/2024 Case Team Name Relationship Phone Tracy Moser RN(Responsible Staff) [phone] Continued Care and Services Coordination
--- OUTSIDE RECORDS SUMMARY | 2024-11-14 16:31 | XMS_ITS | Clinical Summary ---
Author Organization [facility] Address [address] [place] [address] Care Team Providers Care Salad Counter Attendant Name Role Phone Alex Trujillo PA-C Primary Care Provider + [phone] Source Comments PLEASE NOTE, if this patient is a minor, it may be UNLAWFUL to discuss sensitive information that is contained in these records (such as FAMILY PLANNING, MENTAL HEALTH or SUBSTANCE ABUSE) with the minor patient's parent or other person without the patient's specific authorization.[facility] Allergies No known active allergies Medications back braceIndications :Chronic right-sided low back pain with right-sided sciatica 1 BACK BRACE. Dx: M54.41 wt: 203 ht: 5'5 1 Each 06/22/19 18 Active lidocaine (LIDODERM) 5 % patchIndications :Spondylosis of lumbar region without myelopathy or radiculopathy Place 1 Patch onto the skin once daily (every 24 hours) 30 Patch 1 02/26/19 22 Active acetaminophen (TYLENOL) 500 mg tablet Take 1 Tablet by mouth every 6 (six) hours as needed for pain 15 Tablet 07/24/19 22 Active ARTHRITIS PAIN RELIEF,CAPSAIC, 0.075 % cream APPLY TOPICALLY THREE TIMES DAILY 57 g 1 05/13/19 23 Active diclofenac sodium (VOLTAREN) [address] tablet Take 50 mg by mouth 2 (two) times daily 11/19/19 23 Active PROAIR HFA 90 mcg/actuation inhalerIndicatio ns:Chronic bronchitis, unspecified chronic bronchitis type (CMS & HHS-HCC) Inhale 2 Puffs into the lungs every 4 (four) hours as needed for shortness of breath or wheezing 8.5 g 1 03/30/19 24 Active blood-glucose meter monitoring kitIndications:T ype 2 diabetes mellitus with diabetic nephropathy, without long-term current use of insulin ([facility]) as needed for blood glucose monitoring Freestyle meter please 1 Each 04/28/19 24 Active gabapentin (NEURONTIN) 100 mg capsuleIndicatio ns:Spondylosis of lumbar region without myelopathy or radiculopathy Take 1 Capsule by mouth nightly at bedtime 90 Capsule 1 04/28/19 25 Active blood sugar diagnostic (FREESTYLE LITE STRIPS) stripsIndication s:Type 2 diabetes mellitus with microalbuminuria , without long-term current use of insulin ([facility]) USE ONCE A DAY 100 Each 07/22/19 25 Active FREESTYLE LANCETS 28 gaugeIndications :Type 2 diabetes mellitus with microalbuminuria , without long-term current use of insulin ([facility]) USE ONCE A DAY 100 Each 07/22/19 25 Active omega-3 acid ethyl esters (LOVAZA) 1 gram capsuleIndicatio ns:Hypertriglyce ridemia Take 1 Capsule by mouth 2 (two) times daily. 180 Capsule 1 08/09/19 25 Active amLODIPine (NORVASC) 10 mg tablet Take 10 mg by mouth once daily. 08/15/19 25 Active dapagliflozin propanediol 10 mg tab Take 10 mg by mouth. 08/09/19 25 Active atorvastatin (LIPITOR) 40 mg tabletIndication s:Hypertriglycer idemia,Essential hypertension,Typ e 2 diabetes mellitus with diabetic nephropathy, without long-term current use of insulin ([facility]) Take 1 Tablet by mouth nightly at bedtime. 90 Tablet 1 08/24/19 [address] aspirin [address] tabletIndication s:Essential hypertension TAKE 1 TABLET BY MOUTH DAILY 90 Tablet 1 08/29/19 25 Active ergocalciferol (VITAMIN D-2) 1,250 mcg (50,000 unit) capsule TAKE 1 CAPSULE BY MOUTH 1 TIME EVERY WEEK Active mirtazapine 7.5 mg tabIndications:P ost traumatic stress disorder TAKE 1 TABLET BY MOUTH EVERY NIGHT AT BEDTIME 90 Tablet 1 09/08/19 25 Active losartan (COZAAR) 50 mg tablet Take 50 mg by mouth 2 (two) times daily. 08/29/19 25 Active hydrALAZINE (APRESOLINE) 50 mg tablet TAKE 1 TABLET BY MOUTH TWICE DAILY 60 Tablet 10/26/19 25 Active famotidine (PEPCID) 40 mg tabletIndication s:Gastroesophage al reflux disease, unspecified whether esophagitis present TAKE 1 TABLET BY MOUTH DAILY 90 Tablet 1 10/26/19 25 Active famotidine (PEPCID) 40 mg tabletIndication s:Gastroesophage al reflux disease, unspecified whether esophagitis present Take 1 Tablet by mouth once daily 90 Tablet 1 04/28/19 25 025 Discontinued hydrALAZINE (APRESOLINE) 50 mg tablet Take 50 mg by mouth 2 (two) times daily. 08/15/19 25 025 Discontinued Active Problems Problem Noted Date Diagnosed Date Type 2 diabetes mellitus wit h microalbuminuria, without long-term current use of insulin ([facility]) 08/23/2024 Hypertriglyceridemia 08/23/2024 Suspected glaucoma of both eyes 10/22/2021 Overview (10/22/2021): Per ophthalmology report 10/17/21 Gastroesophageal reflux disease without esophagi tis 07/23/2021 Fatty infiltration of liver 12/03/2020 Overview (12/03/2020): US RUQ 03/2020 Nonspecific dizziness 08/03/2020 Overview (08/03/2020): CT Brain 07/2018 4mm frontal subcorticol calcification No acute abnormality Benign hypertensive renal disease 06/06/2020 Chronic kidney disease, stage 3a ([facility]) 06/06/2020 Overview (05/20/2022): Seeing Acumen [...] He is going to TB clinic at [place], on Rifampin 12/14/17 - CXR: Impression: no acute pulmonary disease and no significant change from 06/23/16. A faint 4 mm L mid-lung nodule is stable. There is no radiographic evidence of active TB. Microalbuminuric diabetic nephropathy ([facility]) 04/05/2013 Anxiety and depression 04/05/2013 Overview (04/06/2018): Referred from psych back to PCP on 04/06/18 - Stable on Mirtazapine 7.5 mg HQS Type 2 diabetes mellitus wit h diabetic nephropathy, without long-term current use of insulin ([facility]) Overview (06/13/2017): 02/24/13reat: 1.05, GFR: [...] 07/06/2013 11/13/19 17 Overview (07/06/2013): When in [place] patient had Cath done (per son) and was normal. This was performed due to c/o angina type pain which he continues to have Encounters Date Type Department Care Team Description 11/02/2024 10:00 AM EDT BH/MH Visits [facility] [address] [place] [phone] Kannan Dixon LCSW Tiwari, Roshni 09/19/2024 1:20 PM EDT Office Visit [address] [phone] Tracy Moser RN 09/11/2024 9:40 AM EDT Telemedicine Visit [address] [phone] Alex Trujillo PA-C 08/31/2024 9:00 AM EDT BH/MH Visits [address] [phone] Kannan Dixon LCSW Tiwari, Bhanu 08/31/2024 Results Follow-Up [address] [phone] Alex Trujillo PA-C 08/23/2024 10:00 AM EDT Office Visit [address] [phone] Alex Trujillo PA-C from Last 3 Months Immunizations Immunization Administration Dates Next Due Flu, Preservative Free 11/27/2022,2021,02/26/2021,11/19,12/20/2018,12/01/2017,11/12/2016 Hep B, Adult/Adol ([id number]/RECOMBIVAX-ADULT) 05/31/2012,05/31/2012,02/08/2012,02/07,12/23/2011,12/23/2011 INFLUENZA, SEASONAL, INJECTABLE 12/14/19 15,03/16/2014,12/06/2012,12/06,12/23/2011,12/23/2011 Influenza [...] Care Team (Late st Contact Info) Description 12/21/2024 9:00 AM EDT / Visits [facility] [address] [place] [phone] Kannan Dixon LCSW [address] [place] [address] [place] [address] [place] [address] Health Maintenance Due Date Last Done Comments CT Colonography 2011 FIT/gFOBT 2011 Fecal DNA 2011 Flexible Sigmoidoscopy 2011 Colonoscopy 12/22/2021 12/22/2016 Colorectal Cancer Screening 12/22/2021 Diabetes Foot Exam 11/28/2023 11/27/2022, 1 , 11/05/2020, Additional history exists Dental BW 12/01/2023 11/28/2022 Dental Perio Charting 12/01/2023 11/28/2022 Dental Prophy 12/12/2023 06/10/2023, 11/28/2022 Dental Examination 06/11/2024 06/10/2023, 11/28/2022 [id number] ( season) 2024 01/27/2023, 02/26/2021, 06/19/2020, Additional history exists Imm-Influenza (#1) 2024 04/27/2024, 1 , 12/16/2021, Additional history exists Hemoglobin A1c 11/23/2024 08/23/2024, 03/0 07/2024, 09/23/2023, Additional history exists Depression Monitoring 12/12/2024 [...] Screening 09/11/2025 09/11/2024 Tobacco Screening 09/11/2025 09/11/2024 Retinopathy Screening 10/30/2025 10/30/2024 , 10/27/2023, 10/21/2022, Additional history exists Dental FMX/Pano 12/01/2027 11/28/2022 Imm-DTaP/Tdap/Td (8 - Td or Tdap) 11/27/2032 11/27/2022, 05/13/2012, 05/13/2012, Additional history exists Imm-Hepatitis B Completed 05/31/2012, 04/0 10/2012, 02/08/2012, Additional history exists HIV Screening Completed 12/01/2017 Hepatitis C Screening Completed 11/29/2020, 020 Imm-Zoster, Recombinant Completed 12/16/2021, 03/23 Imm-Pneumococcal 50+ Completed 11/27/2022, 12/02/19 Alcohol and Drug Screen Completed 09/12/19, 08/23/2024, 04/27/2024, Additional history exists Goals Goal Patient Goal Type Associated Problems Recent Progress Patient-Stated? Author monitor bp daily General Yes Tracy Moser RN Remain at or Below Target Blood Pressure General No Tracy Moser RN Procedures Procedure Name Priority Date/Time Associated Diagnosis Comments ANIMAL MAINTENANCE SUPERVISOR REPORT 3:00 AM EDT REFERRAL SCANNED DOCUMENT 10/10/2024 3:00 AM EDT REFERRAL SCANNED DOCUMENT 09/05/2024 3:00 AM EDT REFERRAL SCANNED DOCUMENT 09/05/2024 3:00 AM EDT LIPID PANEL Routine 08/23/2024 11:23 AM EDT Hypertriglyceridemi a Type 2 diabetes mellitus with microalbuminuria, without long-term current use of insulin ([facility]) Essential hypertension HEMOGLOBIN GLYCOSYLATED A1C Routine 08/23/2024 11:23 AM EDT Type 2 diabetes mellitus with microalbuminuria, without long-term current use of insulin ([facility]) COMPREHENSIVE METABOLIC PANEL Routine 08/23/2024 11:23 AM EDT Hypertriglyceridemi a Type 2 diabetes mellitus with microalbuminuria, without long-term current use of insulin ([facility]) Essential hypertension BLOOD COUNT COMPLETE AUTO&AUTO DIFRNTL WBC Routine 08/23/2024 11:23 AM EDT Hypertriglyceridemi a Type 2 diabetes mellitus with microalbuminuria, without long-term current use of insulin ([facility]) Essential hypertension INFLUENZA A AND B, ALERE (POCT) Routine 08/23/2024 10:59 AM EDT Flu-like symptoms COVID-19, ID NOW, MCCULLOUGH (POCT) Routine 08/23/2024 10:59 AM EDT Flu-like symptoms XR CHEST 2V Routine 08/23/2024 3:00 AM EDT Flu-like symptoms REFERRAL SCANNED DOCUMENT 08/17/2024 3:00 AM EDT MICROALBUMIN/CREATININE RATIO, URINE, RANDOM Routine 04/27/2024 9:16 AM EST Type 2 diabetes mellitus with diabetic nephropathy, without long-term current use of insulin ([facility]) Full PROPHYLAXIS - ADULT Routine 06/10/2023 9:40 [...] nephropathy, without long-term current use of insulin ([facility]) ANTIBODY HIV-1&HIV-2 SINGLE RESULT Routine 12/01/2017 9:34 AM EDT Routine lab draw COLONOSCOPY Routine 12/22/2016 9:00 AM EDT from Last 3 Months or Most Recently Relevant to Health Maintenance Results * ANIMAL MAINTENANCE SUPERVISOR REPORT (10/30/2024 3:00 AM EDT) 10/30/2024 3:00 AM EDT Rosimar Trujillo PA-C SCAN PROCEDURES Final Result * REFERRAL SCANNED DOCUMENT (10/10/2024 3:00 AM EDT) Only the most recent of4 resultswithin the time period is included. 10/10/2024 3:00 AM EDT Result [facility] Arti Jimenez ROLLER STAKER-C SCAN REFERRAL Final Result * (ABNORMAL) BLOOD COUNT COMPLETE AUTO&AUTO DIFRNTL WBC Routine (08/23/2024 11:23 AM EDT) WHITE BLOOD CELL COUNT 6.4 3.8 - 10.8 Thousand/ uL [facility] RED BLOOD CELL COUNT 6.17(H) 4.20 - 5.80 Million/u L [facility] HEMOGLOBIN 17.9(H) 13.2 - 17.1 g/dL [facility] HEMATOCRIT 56.3(H) 38.5 - 50.0 % [facility] MCV 91.2 80.0 - 100.0 fL [facility] MCH 29.0 27.0 - 33.0 pg [facility] MCHC 31.8(L) 32.0 - 36.0 g/dL [facility] Comment: For adults, a slight decrease in the calculated MCHC value (in the range of 30 to 32 g/dL) is most likely not clinically significant; however, it should be interpreted with caution in correlation with other red cell parameters and the patient's clinical condition. RDW 14.1 11.0 - 15.0 % [facility] PLATELET COUNT 254 140 - 400 Thousand/ uL [facility] MPV 10.8 7.5 - 12.5 fL [facility] ABSOLUTE NEUTROPHILS 3,526 1,500 - 7,800 cells/uL [facility] ABSOLUTE LYMPHOCYTES 2,176 850 - 3,900 cells/uL [facility] ABSOLUTE MONOCYTES 339 200 - 950 cells/uL [facility] ABSOLUTE EOSINOPHILS 307 15 - 500 cells/uL [facility] ABSOLUTE BASOPHILS 51 0 - 200 cells/uL [facility] NEUTROPHILS PCT 55.1 % [facility] LYMPHOCYTES 34.0 % [facility] MONOCYTES 5.3 % [facility] EOSINOPHILS 4.8 % [facility] BASOPHILS 0.8 % [facility] Blood Blood / Unknown 08/23/2024 1 1:23 AM EDT 08/23/2024 11:23 AM EDT us Alex Perezliset MENARD LAB - BLOOD DRAW Edited Resu lt - Final Performing Organization Address [facility] Co de Phone Number [facility] [address] [address], [place] [facility] [address] [address] * (ABNORMAL) HEMOGLOBIN GLYCOSYLATED A1C Routine (08/23/2024 11:23 AM EDT) HEMOGLOBIN A1C 7.0(H) <5.7 % [facility] Comment: For someone without known diabetes, [...] Resu lt - Final Performing Organization Address [facility]/ZIP Co de Phone Number [facility] [address] [address], [place] [facility] [address] [address] * (ABNORMAL) LIPID PANEL Routine (08/23/2024 11:23 AM EDT) CHOLESTEROL, TOTAL 151 <200 mg/dL [facility] HDL CHOLESTEROL 36(L) > OR = 40 mg/dL [facility] TRIGLYCERIDES 309(H) <150 mg/dL [facility] Comment: If a non-fasting specimen was collected, consider repeat triglyceride testing on a fasting specimen if clinically indicated. Steve et al. J. of Clin. Lipidol. 2015;9:129-169. LDL-CHOLESTEROL 78 99 mg/dL (calc) [facility] Comment: Reference range: <100 Desirable range <100 mg/dL for primary prevention; <70 mg/dL for patients with CHD or diabetic patients with > or = 2 CHD risk factors. LDL-C is now calculated using the Raz calculation, which is a validated novel method providing better accuracy than the Friedewald equation in the estimation of LDL-C. Chencho ESCALONA et al. JENNIFER. 2013;310(19): 1517-8360 (http://education.Dynamic Yield/faq/IWY617) CHOL/HDLC RATIO 4.2 <5.0 (calc) [facility] NON-HDL CHOLESTEROL 115 <130 mg/dL (calc) [facility] Comment: For patients with diabetes plus 1 major ASCVD risk factor, treating to a non-HDL-C goal of <100 mg/dL (LDL-C of <70 mg/dL) is considered a therapeutic option. Blood Blood / Unknown 08/23/2024 1 1:23 AM EDT 08/23/2024 11:23 AM EDT us Alex Trujillo PA-C LAB - BLOOD DRAW Final Resul t [facility] [address] [place] [id number], [facility] [address] [place] [phone] * (ABNORMAL) COMPREHENSIVE METABOLIC PANEL Routine (08/23/2024 11:23 AM EDT) GLUCOSE 158(H) 65 - 99 mg/dL [facility] Comment: Fasting reference interval For someone without known diabetes, a glucose value >125 mg/dL indicates that they may have diabetes and this should be confirmed with a follow-up test. UREA NITROGEN (BUN) 26(H) 7 - 25 mg/dL [facility] CREATININE (blood) 2.63(H) 0.70 - 1.30 mg/dL [facility] EGFR 27(L) > OR = 60 mL/min/1. 73m2 [facility] BUN/CREATININE RATIO 10 6 - 22 (calc) [facility] SODIUM 140 135 - 146 mmol/L [facility] POTASSIUM 4.6 3.5 - 5.3 mmol/L [facility] CHLORIDE 106 98 - 110 mmol/L [facility] CARBON DIOXIDE 28 20 - 32 mmol/L [facility] CALCIUM 9.8 8.6 - 10.3 mg/dL [facility] PROTEIN, TOTAL 7.1 6.1 - 8.1 g/dL [facility] ALBUMIN 4.3 3.6 - 5.1 g/dL [facility] GLOBULIN 2.8 1.9 - 3.7 g/dL (calc) [facility] ALBUMIN/GLOBULI N RATIO 1.5 1.0 - 2.5 (calc) [facility] BILIRUBIN, TOTAL 0.6 0.2 - 1.2 mg/dL [facility] ALKALINE PHOSPHATASE 83 35 - 144 U/L [facility] AST 21 10 - 35 U/L [facility] ALT 30 9 - 46 U/L [facility] Blood Blood / Unknown 08/23/2024 1 1:23 AM EDT 08/23/2024 11:23 AM EDT [facility] Alex Trujillo PA-C LAB - BLOOD DRAW Final Resul t [facility] [address] [address], [facility] [address] [phone] * INFLUENZA A AND B, ALERE (POCT) Nasal NASAL Routine (08/23/2024 10:59 AM EDT) INFLUENZA A NEGATIVE NEGATIVE [facility] POCT INFLUENZA B NEGATIVE NEGATIVE [facility] POCT INTERNAL CONTROL PASS PASS [facility] POCT NASAL Nasal structure / Unknown 08/23/2024 10:59 AM EDT [facility] BODY FLUIDS AND STOOLS A MBULATORY Final Result [facility] POCT * COVID-19, ID NOW, [place] (POCT) Nasal Swab Routine (08/23/2024 10:59 AM EDT) COVID-19 NEGATIVE NEGATIVE [facility] POCT INTERNAL CONTROL PASS PASS [facility] POCT Swab Nasal structure / Unknown 08/23/2024 10:59 AM EDT Alex Perezliset [facility] LAB BODY FLUIDS AND STOOLS A MBULATORY Final Result Performing Organization Address [facility] Co de Phone Number [facility] POCT * XR CHEST 2V (08/23/2024 3:00 AM EDT) 08/23/2024 3:00 AM EDT Alex Perezliset [facility] IMG XRAY Final Result [facility] Corporate Office [address], [address] [place] [address], * (ABNORMAL) MICROALBUMIN/CREATININE RATIO, URINE, RANDOM (04/27/2024 9:16 AM EST) CREATININE, RANDOM URINE 113 20 - 320 mg/dL [facility] MICROALBUMIN 322.0 mg/dL [facility] Comment: Verified by repeat analysis. Reference Range Not established MICROALBUMIN/CREA TININE RATIO, RANDOM URINE 2,850(H) <30 mg/g creat [facility] Comment: The ADA defines abnormalities in [...] AMBULATORY Final R esult Performing Organization Address City/[facility]/ZIP Co de Phone Number [facility] [address] [address], [facility] [address] [phone] * HEPATITIS PANEL W/RFLX (11/29/2020 10:41 AM EDT) HEPATITIS A IGM ANTIBODY NON-REACT GERI NON-REACT GERI [facility] COMMENT [facility] HEPATITIS B SURFACE ANTIGEN NON-REACT GERI NON-REACT GERI [facility] HEPATITIS B CORE IGM ANTIBODY NON-REACT GERI NON-REACT GERI [facility] HEPATITIS C ANTIBODY NON-REACT GERI NON-REACT GERI [facility] SIGNAL TO CUT-OFF 0.02 <1.00 [facility] Comment: HCV antibody was non-reactive. There is no laboratory evidence of HCV infection. In most cases, no further action is required. However, if recent HCV exposure is suspected, a test for HCV RNA (test code 16044) is suggested. For additional information please refer to http://[employer].WeHostels/faq/ZDN24r9 (This link is being provided for informational/ educational purposes only.) Blood Blood / Unknown 11/29/2020 1 0:41 AM EDT 11/29/2020 10:41 AM EDT Narrative [facility] - 11/30/2020 12:21 PM EDT For additional information, please refer to http://[employer]els/faq/YCJ737 (This link is being provided for informational/ educational purposes only.) Arti Jimenez ROLLER STAKER-C LAB - BLOOD DRAW Final Resul t Performing Organization Address [facility]/ZIP Co de Phone Number [facility] [address] [address], [facility] [address] [address] * REFERRAL TO PODIATRY (11/26/2020 3:00 AM EDT) 11/26/2020 3:00 AM EDT Arti Barbara ROLLER STAKER-C REFERRAL Edited Resul t - Final * HIV-1 & HIV-2 ANTIBODIES (12/01/2017 9:34 AM EDT) HIV 1 AND 2 ANTIBODY SCREEN NEGATIVE NEGATIVE [facility] Comment: This assay is a 4th generation [...] AM EDT 12/01/2017 10:09 AM EDT Narrative [facility] - 12/01/2017 1:03 PM EDT [employer] [address] [place] [address] PT ID [id number] ORD# [id number] Joana Workman PA-C LAB - BLOOD DRAW Final Re sult [address] [address], * COLONOSCOPY (12/22/2016 9:00 AM EDT) Impressions Connie Felton MA - 12/22/2016 9:00 AM EDT Colonoscopy impressions: mild gastritis, aborted colonoscopy Pathology 12/23/2016 Reactive gastropathy, mild Repeat 1 year Provider [place] PROCEDURES Final Result from Last 3 Months or Most Recently Relevant to Health Maintenance Insurance [facility] DENTAL HEALTH SAFETY NET DENTAL [facility] [address] [employer] Care Teams Salad Counter Attendant Relationship Specialty Start Date End Date Alex Trujillo PA-C [address] [place] [address] PCP - General FAMILY MEDICINEGAURANG 01/21/23
--- OUTSIDE RECORDS SUMMARY | 2024-11-14 16:31 | XMS_ITS | Clinical Summary ---
Author Organization [facility] Address [address] [place] [address] [address] [place] [address] Phone Care Team Providers Care Fha Underwriter Name Role Phone Arti Jimenez LEARN TO SWIM INSTRUCTOR Primary Care Provider [phone] Allergies No known active allergies Medications amitriptyline [...] each day 03/04/2022 Active ergocalciferol 1.25 MG (89005 [place]) capsuleIndicatio ns:Vitamin D deficiency, not otherwise [...] He is going to [place] clinic [place] [facility], on Rifampin 12/14/17 - CXR: Impression: no [...] Foot Exam 03/24/2020 Influenza Vaccine (#1) 2024 , 11/27/2022, 12/16/2021, Additional history exists Diabetes: Hemoglobin A1C 11/23/2024 025, 04/27/2024, 09/23/2023, Additional history exists Pneumococcal Vaccine: Peds ( 0 to 5 Years) and At-Risk Patients (6 to 49 Years) Discontinued 12/01/2017 Insurance Medicaid [place] Care Teams Fha Underwriter Relationship Specialty Start Date End Date Arti Jimenez NP [address] [place] [address] PCP - General Nurse Practitioner 12/17/20
--- OUTSIDE RECORDS SUMMARY | 2024-11-14 16:31 | XMS_ITS | Clinical Summary ---
Author Organization [facility] Address [address] [place] [address] Phone Care Team Providers Care Risk Compliance Manager Name Role Phone Lenora Cox FADI Primary Care Provider [phone] Encounters Date Type Department Care Team Description 08/23/2024 11:53 AM EDT - 08/23/2024 11:59 PM EDT Hospital Encounter Xray [address] [place] [address] Other general symptoms and signs [...] Borderline cardiomegaly. No change since 05/24/2021. Code 74312 -------- FINAL REPORT -------- Dictated By: Magdiel Velez Dictated Date: 08/23/2024 12:05 ET Assigned Physician: Magdiel Velez Reviewed and Electronically Signed By: Magdiel Velez Signed Date: 08/23/2024 12:06 ET Workstation ID: [id number] Transcribed By: Self Edit Transcribed Date: 08/23/2024 [...] disease. Borderline cardiomegaly. No change since05/24/2021. Code 66757 -------- FINAL REPORT -------- Dictated By: Magdiel Velez Dictated Date: 08/23/2024 12:05 ET Assigned Physician: Magdiel Velez Reviewed and Electronically Signed By: Magdiel Velez Signed Date: 08/23/2024 12:06 ET Workstation ID: [id number] Transcribed By: Self Edit Transcribed Date: 08/23/2024 12:05 ET Alex MERLOS IMG XR PROCEDURES Final Result from Last 3 Months Insurance MEDICAID - [place] Care Teams Risk Compliance Manager Relationship Specialty Start Date End Date Lenora Cox NP [address] [place] [address] PCP - General 08/12/20
--- OUTSIDE RECORDS SUMMARY | 2024-11-14 16:31 | XMS_ITS | Clinical Summary ---
Author Organization [facility] Address [address] [facility] [address] [place] [address] Care Team Providers Care Dermatologist Name Role Phone Unavailable Primary Care Provider Unavailabl e Encounters Date Type Department Care Team Description 09/12/2024 Population Health Risk Score [facility] Care [facility] (C3) Department [address] [facility] [address] [place] [id number] Provider, Population Health Generic from Last 3 [...]
== END 2024-11-14 13:53 | disposition home or self-care (01) ==
LOC: HO.HKAS 13:27
PROVIDERS: PCP Nurse Practitioner Family; Visit Provider Internal Medicine Nephrology
DX: I10 Essential (primary) hypertension (principal); N18.32 Chronic kidney disease, stage 3b; E11.21 Type 2 diabetes mellitus with diabetic nephropathy
CPT/HCPCS: 99214

== ENCOUNTER → 2024-11-14 13:27 | Outpatient (BNVA) | payer MEDICAID, SELFPAY | PROVIDERS: PCP Nurse Practitioner Family; Visit Provider Internal Medicine Nephrology | DX: E11.22 Type 2 diabetes mellitus with diabetic chronic kidney disease (principal); I12.9 Hypertensive chronic kidney disease with stage 1 through stage 4 chronic kidney disease, or unspecified chronic kidney disease; N18.32 Chronic kidney disease, stage 3b; E11.21 Type 2 diabetes mellitus with diabetic nephropathy | CPT/HCPCS: 99212 ==

== ENCOUNTER 2024-11-23 11:39 | Outpatient (AMB) | payer MEDICAID, SELFPAY ==
--- NOTE | 2024-11-23 11:43 | HO.NEPHOV ---
Vital Signs 11/23/24 11:45 Height 5 ft 5 in Weight 192 lb 4 oz BMI 32.0 BP 124/86 Blood Pressure Location Lt brachial Position Sitting Pulse 57 Pulse Source Pulse Oximeter Pulse Oximetry (%) 95 Oxygen Delivery Method Room Air Intake Visit Reasons: 1mnth-Conf Solids Control Technician Required: No Accompanied by: Self / Same As Patient Allergies No Known Allergies Allergy (Verified 11/23/24 11:45) HPI Comments Details: Pablo is a 59-year-old gentleman whom I had the privilege of seeing in follow-up for his chronic kidney disease and proteinuria. He was seen in [facility] for high BP and his medications has been adjusted. Recently he had PETERSON and his ARB has been discontinued. Imaging done in the past had shown large kidneys bilaterally. He has longstanding diabetes mellitus with end-organ damage from it. He is currently following his blood pressures and blood sugars closely. He denies any nausea, vomiting, diarrhea, chest pain, orthostatic symptoms. He does not take any nonsteroidal anti-inflammatories. He was accompanied by his son during the office visit [facility] Medical History Type 2 diabetes mellitus with diabetic nephropathy Hypertension Chronic kidney disease, stage 3a Social History Alcohol intake: never Patient Tobacco Use Status: Never used Tobacco Review of Systems Const All systems reviewed & are unremarkable except as noted in HPI and below Physical Exam Vital Signs: Last Vital Signs Pulse 57 11/23/24 11:45 BP 124/86 11/23/24 11:45 Pulse Ox 95 11/23/24 11:45 Oxygen Delivery Method Room Air 11/23/24 11:45 BMI result Body Mass Index 32.0 Const General: comfortable and no acute distress Orientation/consciousness: patient oriented x3 HEENT Head: Yes normocephalic Mouth: Normal oral and palatal mucosa present Eyes EOM: EOMs intact bilaterally Neck Neck: Yes supple Resp Auscultation: clear to auscultation bilaterally Cardio Jugular venous distension: no JVD Rate: regular rate GI Palpation (GI): Soft to palpation Auscultation: normal bowel sounds General: Yes no CVA tenderness Back/Spine/Pelvis Back: no CVA tenderness Skin General skin exam: no rashes or lesions noted Neuro General: patient oriented x3 and moves all extremities Extrem General: Yes no pedal edema Results Reviewed Nephrology Results: Sodium, (135-145) 143 mmol/L 10/05/24 Potassium, (3.3-5.1) 4.1 mmol/L 10/05/24 Chloride, (96-108) 108 mmol/L 10/05/24 Carbon Dioxide, (22-29) 25 mmol/L 10/05/24 BUN, (9-16) 31 mg/dL H 10/05/24 Creatinine, (0.5-1.4) 2.86 mg/dL H 10/05/24 Assessment & Plan Assessment & Plan (1) Chronic kidney disease, stage 3a: Code(s): N18.31 - Chronic kidney disease, stage 3a Category: Medical (2) Hypertension: Code(s): I10 - Essential (primary) hypertension Category: Medical Qualifiers: Hypertension type: primary hypertension Qualified Code(s): I10 - Essential (primary) hypertension (3) Type 2 diabetes mellitus with diabetic nephropathy: Code(s): E11.21 - Type 2 diabetes mellitus with diabetic nephropathy Category: Medical Qualifiers: Diabetes mellitus exterminator helper insulin use: without exterminator helper use Qualified Code(s): E11.21 - Type 2 diabetes mellitus with diabetic nephropathy Plan Shah has diabetic nephropathy .He has H/O PETERSON on CKD from tubular injury and his ARB has been discontinued. He has diabetic nephropathy. His metformin is on hold. He is on Farxiga. He does not take nonsteroidal anti-inflammatories and maintain good hydration. His urine output is good. He may need more BP medications to keep his BP at goal. All his and his son's questions were answered. Follow-up appointment given Orders: Orders Blood Urea Nitrogen 2 Months E11.21 - Type 2 diabetes mellitus with diabetic nephropathy, I10 - Essential (primary) hypertension, N18.31 - Chronic kidney disease, stage 3a Creatinine 2 Months E11.21 - Type 2 diabetes mellitus with diabetic nephropathy, I10 - Essential (primary) hypertension, N18.31 - Chronic kidney disease, stage 3a Electrolytes 2 Months E11.21 - Type 2 diabetes mellitus with diabetic nephropathy, I10 - Essential (primary) hypertension, N18.31 - Chronic kidney disease, stage 3a Coding Level of Care Code Est Pt Level 4 (01745) Diagnoses Chronic kidney disease, stage 3a N18.31 Primary hypertension I10 Hypertension type: primary hypertension Type 2 diabetes mellitus with diabetic nephropathy, without long-term current use of insulin E11.21 Diabetes mellitus exterminator helper insulin use: without exterminator helper use
[2024-11-23 11:45] VITALS: BP 124/86; PULSE 57; O2SAT 95; BMI 32.0
--- OUTSIDE RECORDS SUMMARY | 2024-11-23 13:28 | XMS_ITS ---
Author Organization [facility] Address [address] [place] [id number] Care Team Providers Care Cable Mock Up Assembler Name Role Phone Alex Trujillo PA-C Primary Care Provider + [phone] [facility] Program Status:Enrolled (Active) Start date:08/01/2024 Enrollment date:08/01/2024 Case Team Name Relationship Phone Tracy Moser RN(Responsible Staff) [phone] Continued Care and Services Coordination
--- OUTSIDE RECORDS SUMMARY | 2024-11-23 13:28 | XMS_ITS | Clinical Summary ---
Author Organization [facility] Address [address] [place] [address] Phone Care Team Providers Care Court Attendant Name Role Phone Lenora Cox FADI Primary Care Provider [phone] Encounters Date Type Department Care Team Description 08/23/2024 11:53 AM EDT - 08/23/2024 11:59 PM EDT Hospital Encounter [facility] Xray [address] [place] [address] Other general symptoms and signs [...] Health Maintenance Due Date Last Done Comments Colorectal Cancer Screening: Colonoscopy 1966 Diabetes: Annual Foot Exam 02/23/1976 Diabetes: Annual Retina Eye Exam 02/23/1976 Hepatitis A Vaccines (1 of 2 - Risk 2-dose series) 1985 Social Influencers of Health Screening 01/25/2022 Depression [...] 11/27/2022, 05/13/2012, 02/08/2012, Additional history exists RSV Immunization Adult Patients (1 - 1-dose 75+ series) 2041 Hepatitis [...] Borderline cardiomegaly. No change since 05/24/2021. Code 23776 -------- FINAL REPORT -------- Dictated By: Magdiel Velez Dictated Date: 08/23/2024 12:05 ET Assigned Physician: Magdiel Velez Reviewed and Electronically Signed By: Magdiel Velez Signed Date: 08/23/2024 12:06 ET Workstation ID: [id number] Transcribed By: Self Edit Transcribed Date: 08/23/2024 [...] disease. Borderline cardiomegaly. No change since05/24/2021. Code 81453 -------- FINAL REPORT -------- Dictated By: Magdiel Velez Dictated Date: 08/23/2024 12:05 ET Assigned Physician: Magdiel Velez Reviewed and Electronically Signed By: Magdiel Velez Signed Date: 08/23/2024 12:06 ET Workstation ID: [id number] Transcribed By: Self Edit Transcribed Date: 08/23/2024 12:05 ET Alex MERLOS IMG XR PROCEDURES Final Result from Last 3 Months Insurance MEDICAID - [place] Care Teams Court Attendant Relationship Specialty Start Date End Date Lenora Cox NP [facility] [place] [address] PCP - General 08/12/20
--- OUTSIDE RECORDS SUMMARY | 2024-11-23 13:28 | XMS_ITS | Clinical Summary ---
Author Organization [facility] Address [address] [facility] [address] [place] [address] Care Team Providers Care Certified Paralegal Name Role Phone Unavailable Primary Care Provider Unavailabl e Encounters Date Type Department Care Team Description 09/12/2024 Population Health Risk Score [facility] Care [facility] (C3) Department [address] [facility] [address] [place] [phone] Provider, Population Health Generic from Last 3 [...]
--- OUTSIDE RECORDS SUMMARY | 2024-11-23 13:29 | XMS_ITS | Clinical Summary ---
Author Organization [facility] Address [address] [place] [address] Care Team Providers Care Center Human Resources Manager Name Role Phone Alex Trujillo PA-C Primary Care Provider + [phone] Source Comments PLEASE NOTE, if this patient [...] inhalerIndicatio ns:Chronic bronchitis, unspecified chronic bronchitis type Inhale 2 Puffs into the lungs every 4 (four) hours as needed for shortness of breath or wheezing 8.5 g 1 03/30/19 24 Active blood-glucose meter monitoring kitIndications:T ype 2 diabetes mellitus with diabetic nephropathy, without long-term current use of insulin as needed for blood glucose monitoring Freestyle meter please 1 Each 04/28/19 24 Active gabapentin (NEURONTIN) 100 mg capsuleIndicatio ns:Spondylosis of lumbar region without myelopathy or radiculopathy Take 1 Capsule by mouth nightly at bedtime 90 Capsule 1 04/28/19 25 Active blood sugar diagnostic (FREESTYLE LITE STRIPS) stripsIndication s:Type 2 diabetes mellitus with microalbuminuria , without long-term current use of insulin USE ONCE A DAY 100 Each 07/22/19 25 Active FREESTYLE LANCETS 28 gaugeIndications :Type 2 diabetes mellitus with microalbuminuria , without long-term current use of insulin USE ONCE A DAY 100 Each 07/22/19 [...] nephropathy, without long-term current use of insulin Take 1 Tablet by mouth nightly at [...] microalbuminuria, without long-term current use of insulin 08/23/2024 Hypertriglyceridemia 08/23/2024 Suspected glaucoma of both eyes 10/22/2021 Overview (10/22/2021): Per ophthalmology report 10/17/21 Gastroesophageal reflux disease without esophagi tis 07/23/2021 Fatty infiltration of liver 12/03/2020 Overview (12/03/2020): US RUQ 03/2020 Nonspecific dizziness 08/03/2020 Overview (08/03/2020): CT Brain 07/2018 4mm frontal subcorticol calcification No acute abnormality Benign hypertensive renal disease 06/06/2020 Chronic kidney disease, stage 3a 06/06/2020 Overview (05/20/2022): Seeing [facility]. Last [...] He is going to TB clinic at [facility], on Rifampin 12/14/17 - CXR: Impression: no acute pulmonary disease and no significant change from 06/23/16. A faint 4 mm L mid-lung nodule is stable. There is no radiographic evidence of active TB. Microalbuminuric diabetic nephropathy 04/05/2013 Anxiety and depression 04/05/2013 Overview (04/06/2018): Referred from psych back to PCP on 04/06/18 - Stable on Mirtazapine 7.5 mg HQS Type 2 diabetes mellitus wit h diabetic nephropathy, without long-term current use of insulin Overview (06/13/2017): 02/24/13reat: 1.05, GFR: >60%, LDL: [...] 07/06/2013 11/13/19 17 Overview (07/06/2013): When in [place] patient had Cath done (per son) and was normal. This was performed due to c/o angina type pain which he continues to have Encounters Date Type Department Care Team Description 11/02/2024 10:00 AM EDT BH/MH Visits [facility] [address] [place] [phone] Kannan Dixon LCSW Tiwari, Roshni 09/19/2024 1:20 PM EDT Office Visit [address] [phone] Tracy Moser RN 09/11/2024 9:40 AM EDT Telemedicine Visit [address] [phone] Alex Trujillo PA-C 08/31/2024 9:00 AM EDT BH/MH Visits [address] [phone] Kannan Dixon LCSW Tiwari, Bhanu 08/31/2024 Results Follow-Up [address] [phone] Alex Trujillo PA-C 08/23/2024 10:00 AM EDT Office Visit [address] [phone] Alex Trujillo PA-C from Last 3 Months Immunizations Immunization Administration Dates Next Due Flu, Preservative Free 11/27/2022,2021,02/26/2021,11/19,12/20/2018,12/01/2017,11/12/2016 Hep B, Adult/Adol ([id number]/RECOMBIVAX-ADULT) 05/31/2012,05/31/2012,02/08/2012,02/07,12/23/2011,12/23/2011 INFLUENZA, SEASONAL, INJECTABLE 12/14/19 15,03/16/2014,12/06/2012,12/06,12/23/2011,12/23/2011 Influenza [...] preservative free 05/13/2012,05/13/2012,02/08/2012,02/07 ZOSTER VACCINE, RECOMBINANT (SHINGRIX) ,03/23/2019 [...] Contact Info) Description 12/21/2024 9:00 AM EDT /MH Visits [facility] [address] [place] [phone] Kannan Dixon, TRAPEZE ARTIST [address] [place] [address] [place] [address] [place] [address] 12/25/2024 10:20 AM EST Office Visit [facility] [address] [place] [phone] Johny Dave, Bal [address] [place] [address] Health Maintenance Due Date Last Done Comments CT Colonography 2011 FIT/gFOBT 2011 Fecal DNA 2011 Flexible Sigmoidoscopy 2011 Colonoscopy 12/22/2021 12/22/2016 Colorectal Cancer Screening 12/22/2021 Diabetes Foot Exam 11/28/2023 11/27/2022, 1 , 11/05/2020, Additional history exists Dental BW 12/01/2023 11/28/2022 Dental Perio Charting 12/01/2023 11/28/2022 Dental Prophy 12/12/2023 06/10/2023, 11/28/2022 Dental Examination 06/11/2024 06/10/2023, 11/28/2022 [id number] ( season) 2024 01/27/2023, 02/26/2021, 06/19/2020, Additional history exists Imm-Influenza (#1) 2024 04/27/2024, 1 , 12/16/2021, Additional history exists Hemoglobin A1c 11/23/2024 08/23/2024, 030 07/2024, 09/23/2023, Additional history exists Depression Monitoring [...] Date/Time Associated Diagnosis Comments REFERRAL SCANNED DOCUMENT 11/14/2024 3:00 AM EDT RADIAGRAPH OPERATOR REPORT 3:00 AM EDT REFERRAL SCANNED DOCUMENT 10/10/2024 3:00 AM EDT REFERRAL SCANNED DOCUMENT 09/05/2024 3:00 AM EDT REFERRAL SCANNED DOCUMENT 09/05/2024 3:00 AM EDT LIPID PANEL Routine 08/23/2024 11:23 AM EDT Hypertriglyceridemi a Type 2 diabetes mellitus with microalbuminuria, without long-term current use of insulin ([facility]) Essential hypertension HEMOGLOBIN GLYCOSYLATED A1C Routine 08/23/2024 11:23 AM EDT Type 2 diabetes mellitus with microalbuminuria, without long-term current use of insulin ([facility]) COMPREHENSIVE METABOLIC PANEL Routine 08/23/2024 11:23 AM EDT Hypertriglyceridemi a Type 2 diabetes mellitus with microalbuminuria, without long-term current use of insulin ([facility]) Essential hypertension BLOOD COUNT COMPLETE AUTO&AUTO DIFRNTL WBC Routine 08/23/2024 11:23 AM EDT Hypertriglyceridemi a Type 2 diabetes mellitus with microalbuminuria, without long-term current use of insulin ([facility]) Essential hypertension INFLUENZA A AND B, ALERE (POCT) Routine 08/23/2024 10:59 AM EDT Flu-like symptoms COVID-19, ID NOW, MCCULLOUGH (POCT) Routine 08/23/2024 10:59 AM EDT Flu-like symptoms XR CHEST 2V Routine 08/23/2024 3:00 AM EDT Flu-like symptoms MICROALBUMIN/CREATININE RATIO, URINE, RANDOM Routine 04/27/2024 9:16 AM EST Type 2 diabetes mellitus with diabetic nephropathy, without long-term current use of insulin ([facility]) Full PROPHYLAXIS - ADULT Routine 06/10/2023 9:40 [...] nephropathy, without long-term current use of insulin ([facility]) ANTIBODY HIV-1&HIV-2 SINGLE RESULT Routine 12/01/2017 9:34 AM EDT Routine lab draw COLONOSCOPY Routine 12/22/2016 9:00 AM EDT from Last 3 Months or Most Recently Relevant to Health Maintenance Results * REFERRAL SCANNED DOCUMENT (11/14/2024 3:00 AM EDT) Only the most recent of4 resultswithin the time period is included. 11/14/2024 3:00 AM EDT Arti Jimenez PROVIDER RELATIONS REP-C SCAN REFERRAL Final Result * RADIAGRAPH OPERATOR REPORT (10/30/2024 3:00 AM EDT) 10/30/2024 3:00 AM EDT Aliciaaniceto Perzecea PA-C SCAN PROCEDURES Final Result * (ABNORMAL) BLOOD COUNT COMPLETE AUTO&AUTO DIFRNTL WBC Routine (08/23/2024 11:23 AM EDT) WHITE BLOOD CELL COUNT 6.4 3.8 - 10.8 Thousand/ uL Cued RED BLOOD CELL COUNT 6.17(H) 4.20 - 5.80 Million/u L Cued HEMOGLOBIN 17.9(H) 13.2 - 17.1 g/dL Cued HEMATOCRIT 56.3(H) 38.5 - 50.0 % Cued MCV 91.2 80.0 - 100.0 fL Cued MCH 29.0 27.0 - 33.0 pg Cued MCHC 31.8(L) 32.0 - 36.0 g/dL Cued Comment: For adults, a slight decrease in the calculated MCHC value (in the range of 30 to 32 g/dL) is most likely not clinically significant; however, it should be interpreted with caution in correlation with other red cell parameters and the patient's clinical condition. RDW 14.1 11.0 - 15.0 % Cued PLATELET COUNT 254 140 - 400 Thousand/ uL Cued MPV 10.8 7.5 - 12.5 fL Cued ABSOLUTE NEUTROPHILS 3,526 1,500 - 7,800 cells/uL Cued ABSOLUTE LYMPHOCYTES 2,176 850 - 3,900 cells/uL Cued ABSOLUTE MONOCYTES 339 200 - 950 cells/uL Cued ABSOLUTE EOSINOPHILS 307 15 - 500 cells/uL Cued ABSOLUTE BASOPHILS 51 0 - 200 cells/uL Cued NEUTROPHILS PCT 55.1 % [facility] LYMPHOCYTES 34.0 % [facility] MONOCYTES 5.3 % [facility] EOSINOPHILS 4.8 % [facility] BASOPHILS 0.8 % [facility] Blood Blood / Unknown 08/23/2024 1 1:23 AM EDT 08/23/2024 11:23 AM EDT Alex Trujillo PA-C LAB - BLOOD DRAW Edited Resu lt - Final Performing Organization Address City/[facility]/ZIP Co de Phone Number [facility] [address] [address], [facility] [address] [address] * (ABNORMAL) HEMOGLOBIN GLYCOSYLATED A1C Routine (08/23/2024 11:23 AM EDT) HEMOGLOBIN A1C 7.0(H) <5.7 % [facility] Comment: For someone without known diabetes, a [...] Resu lt - Final Performing Organization Address City/[facility]/ZIP Co de Phone Number [facility] [address] [address], [facility] [address] [address] * (ABNORMAL) LIPID PANEL Routine (08/23/2024 11:23 AM EDT) CHOLESTEROL, TOTAL 151 <200 mg/dL [facility] HDL CHOLESTEROL 36(L) > OR = 40 mg/dL Cued TRIGLYCERIDES 309(H) <150 mg/dL Cued Comment: If a non-fasting specimen was collected, consider repeat triglyceride testing on a fasting specimen if clinically indicated. Steve et al. J. of Clin. Lipidol. 2015;9:129-169. LDL-CHOLESTEROL 78 99 mg/dL (calc) Cued Comment: Reference range: <100 Desirable range <100 mg/dL for primary prevention; <70 mg/dL for patients with CHD or diabetic patients with > or = 2 CHD risk factors. LDL-C is now calculated using the Raz calculation, which is a validated novel method providing better accuracy than the Friedewald equation in the estimation of LDL-C. Chencho SS et al. JENNIFER. 2013;310(19): 1173-7696 (http://education.GottaPark/faq/SLY110) CHOL/HDLC RATIO 4.2 <5.0 (calc) Cued NON-HDL CHOLESTEROL 115 <130 mg/dL (calc) Cued Comment: For patients with diabetes plus 1 major ASCVD risk factor, treating to a non-HDL-C goal of <100 mg/dL (LDL-C of <70 mg/dL) is considered a therapeutic option. Blood Blood / Unknown 08/23/2024 1 1:23 AM EDT 08/23/2024 11:23 AM EDT us Alex Trujillo PA-C LAB - BLOOD DRAW Final Resul t [facility] [address] [address], Cued [address] [place] [phone] * (ABNORMAL) COMPREHENSIVE METABOLIC PANEL Routine (08/23/2024 11:23 AM EDT) GLUCOSE 158(H) 65 - 99 mg/dL Cued Comment: Fasting reference interval For someone without known diabetes, a glucose value >125 mg/dL indicates that they may have diabetes and this should be confirmed with a follow-up test. UREA NITROGEN (BUN) 26(H) 7 - 25 mg/dL Cued CREATININE (blood) 2.63(H) 0.70 - 1.30 mg/dL [facility] EGFR 27(L) > OR = 60 mL/min/1. 73m2 [facility] BUN/CREATININE RATIO 10 6 - 22 (calc) [facility] SODIUM 140 135 - 146 mmol/L [facility] POTASSIUM 4.6 3.5 - 5.3 mmol/L [facility] CHLORIDE 106 98 - 110 mmol/L [facility] CARBON DIOXIDE 28 20 - 32 mmol/L [facility] CALCIUM 9.8 8.6 - 10.3 mg/dL [facility] PROTEIN, TOTAL 7.1 6.1 - 8.1 g/dL [facility] ALBUMIN 4.3 3.6 - 5.1 g/dL [facility] GLOBULIN 2.8 1.9 - 3.7 g/dL (calc) [facility] ALBUMIN/GLOBULI N RATIO 1.5 1.0 - 2.5 (calc) [facility] BILIRUBIN, TOTAL 0.6 0.2 - 1.2 mg/dL [facility] ALKALINE PHOSPHATASE 83 35 - 144 U/L [facility] AST 21 10 - 35 U/L [facility] ALT 30 9 - 46 U/L [facility] Blood Blood / Unknown 08/23/2024 1 1:23 AM EDT 08/23/2024 11:23 AM EDT Alex Trujillo PA-C LAB - BLOOD DRAW Final Resul t [facility] [address] [address], [facility] [address] [address] * INFLUENZA A AND B, ALERE (POCT) Nasal NASAL Routine (08/23/2024 10:59 AM EDT) INFLUENZA A NEGATIVE NEGATIVE [facility] POCT INFLUENZA B NEGATIVE NEGATIVE [facility] POCT INTERNAL CONTROL PASS PASS [facility] POCT NASAL Nasal structure / Unknown 08/23/2024 10:59 AM EDT Alex Perezliset MERLOS-C LAB BODY FLUIDS AND STOOLS A MBULATORY Final Result [facility] POCT * COVID-19, ID NOW, [place] (POCT) Nasal Swab Routine (08/23/2024 10:59 AM EDT) COVID-19 NEGATIVE NEGATIVE [facility] POCT INTERNAL CONTROL PASS PASS [facility] POCT Swab Nasal structure / Unknown 08/23/2024 10:59 AM EDT Alex Perezliset MERLOS-C LAB BODY FLUIDS AND STOOLS A MBULATORY Final Result Performing Organization Address [facility]/ZIP Co de Phone Number [facility] OFF[facility] POCT * XR CHEST 2V (08/23/2024 3:00 AM EDT) 08/23/2024 3:00 AM EDT Alex Perezliset MERLOS-[facility] IMG XRAY Final Result [facility] Corporate Office [address], [address] [place] [address], * (ABNORMAL) MICROALBUMIN/CREATININE RATIO, URINE, RANDOM (04/27/2024 9:16 AM EST) CREATININE, RANDOM URINE 113 20 - 320 mg/dL Cued MICROALBUMIN 322.0 mg/dL Cued Comment: Verified by repeat analysis. Reference Range Not established MICROALBUMIN/CREA TININE RATIO, RANDOM URINE 2,850(H) <30 mg/g creat Cued Comment: The ADA defines abnormalities in albumin [...] AMBULATORY Final R esult Performing Organization Address City/[facility]/ZIP Co de Phone Number [facility] [address] [address], [facility] [address] [address] * HEPATITIS PANEL W/RFLX (11/29/2020 10:41 AM EDT) HEPATITIS A IGM ANTIBODY NON-REACT GERI NON-REACT GERI [facility] COMMENT [facility] HEPATITIS B SURFACE ANTIGEN NON-REACT GERI NON-REACT GERI [facility] HEPATITIS B CORE IGM ANTIBODY NON-REACT GERI NON-REACT GERI [facility] HEPATITIS C ANTIBODY NON-REACT GERI NON-REACT GERI [facility] SIGNAL TO CUT-OFF 0.02 <1.00 [facility] Comment: HCV antibody was non-reactive. There is no laboratory evidence of HCV infection. In most cases, no further action is required. However, if recent HCV exposure is suspected, a test for HCV RNA (test code 08418) is suggested. For additional information please refer to http://Apogenix.Kick Sport/faq/ZDJ35x6 (This link is being provided for informational/ educational purposes only.) Blood Blood / Unknown 11/29/2020 1 0:41 AM EDT 11/29/2020 10:41 AM EDT Narrative [email or web address] - 11/30/2020 12:21 PM EDT For additional information, please refer to http://Apogenix.Kick Sport/faq/OQF420 (This link is being provided for informational/ educational purposes only.) Arti Jimenez PROVIDER RELATIONS REP-C LAB - BLOOD DRAW Final Resul t Performing Organization Address [facility]/ZIP Co de Phone Number [facility] [address] [address], [facility] [address],[facility] [place] [address] * REFERRAL TO PODIATRY (11/26/2020 3:00 AM EDT) 11/26/2020 3:00 AM EDT Arti Jimenez PROVIDER RELATIONS REP-C REFERRAL Edited Resul t - Final * HIV-1 & HIV-2 ANTIBODIES (12/01/2017 9:34 AM EDT) HIV 1 AND 2 ANTIBODY SCREEN NEGATIVE NEGATIVE [facility] Comment: This assay is a 4th generation [...] AM EDT 12/01/2017 10:09 AM EDT Narrative [facility] - 12/01/2017 1:03 PM EDT [facility] [address] [place] [address] PT ID [id number] ORD# [id number] Joana Workman PA-C LAB - B[place]OD [place] [id number], * COLONOSCOPY (12/22/2016 9:00 AM EDT) Impressions Connie Fleton MA - 12/22/2016 9:00 AM EDT Colonoscopy impressions: mild gastritis, aborted colonoscopy Pathology 12/23/2016 Reactive gastropathy, mild Repeat 1 year Provider [facility] PROCEDURES Final Result from Last 3 Months or Most Recently Relevant to Health Maintenance Insurance [facility] [place] [id number] [employer]AF[employer] [place] [address] [facility] Care Teams Center Human Resources Manager Relationship Specialty Start Date End Date Alex Trujillo PA-C [address] [place] [address] PCP - General FAMILY MEDICINEGAURANG 01/21/23
--- OUTSIDE RECORDS SUMMARY | 2024-11-23 13:29 | XMS_ITS | Clinical Summary ---
Author Organization [facility] Address [address] [place] [address] [address] [place] [address] Phone Care Team Providers Care Assistant Tennis Professional Name Role Phone Arti Jimenez FINE ARTIST Primary Care Provider [phone] Allergies No known active allergies Medications amitriptyline [...] each day 03/04/2022 Active ergocalciferol 1.25 MG (49226 UT) capsuleIndicatio ns:Vitamin D deficiency, not otherwise [...] He is going to TB clinic at [facility], on Rifampin 12/14/17 - CXR: Impression: no [...] to 50 Years) Discontinued 12/01/2017 Insurance Medicaid [place] Medicaid [place] Care Teams Assistant Tennis Professional Relationship Specialty Start Date End Date Arti Jimenez NP [address] [place] [address] PCP - General Nurse Practitioner 12/17/20
== END 2024-11-23 12:52 | disposition home or self-care (01) ==
LOC: HO.HKAS 11:40
PROVIDERS: PCP Nurse Practitioner Family; Visit Provider Internal Medicine Nephrology
DX: N18.31 Chronic kidney disease, stage 3a (principal); I10 Essential (primary) hypertension; E11.21 Type 2 diabetes mellitus with diabetic nephropathy
CPT/HCPCS: 99214

== ENCOUNTER → 2024-11-23 11:39 | Outpatient (BNVA) | payer MEDICAID, SELFPAY | PROVIDERS: PCP Nurse Practitioner Family; Visit Provider Internal Medicine Nephrology | DX: N18.31 Chronic kidney disease, stage 3a (principal); I10 Essential (primary) hypertension; E11.21 Type 2 diabetes mellitus with diabetic nephropathy | CPT/HCPCS: 99212 ==

== ENCOUNTER 2025-02-02 09:37 | Outpatient (REF) | payer MEDICAID, SELFPAY ==
[2025-02-02 14:53] LABS: Anion Gap 12 (12-20); Blood Urea Nitrogen 29 mg/dL (9-16); Carbon Dioxide 24 mmol/L (22-29); Chloride 108 mmol/L (96-108); Estimated Glomerular Filt Rate 22; Potassium 4.5 mmol/L (3.3-5.1); Sodium 139 mmol/L (135-145)
== END 2025-02-02 09:38 | disposition home or self-care (01) ==
LOC: HO.HKASLDS 09:37
PROVIDERS: PCP Dentist General Practice; Visit Provider Internal Medicine Nephrology
DX: I12.9 Hypertensive chronic kidney disease with stage 1 through stage 4 chronic kidney disease, or unspecified chronic kidney disease (principal); E11.21 Type 2 diabetes mellitus with diabetic nephropathy; N18.31 Chronic kidney disease, stage 3a
CPT/HCPCS: 36415; 80051; 82565; 84520

== ENCOUNTER 2025-02-13 10:24 | Outpatient (AMB) | payer MEDICAID, SELFPAY ==
--- NOTE | 2025-02-13 10:25 | HO.NEPHOV ---
Vital Signs 02/13/25 10:26 Height 5 ft 5 in Weight 196 lb BMI 32.6 BP 122/84 Blood Pressure Location Lt brachial Position Sitting Pulse 65 Pulse Source Pulse Oximeter Pulse Oximetry (%) 95 Oxygen Delivery Method Room Air Intake Visit Reasons: 2mnth-Conf Medical Office Technologist Required: No Medical Office Technologist Services: Medical Office Technologist Offered & Declined (Son will translate ) Accompanied by: Son Allergies No Known Allergies Allergy (Verified 02/13/25 10:28) HPI Comments Details: Pablo is a 59-year-old gentleman whom I had the privilege of seeing in follow-up for his chronic kidney disease and proteinuria. When he had PETERSON and his ARB has been discontinued. Imaging done in the past had shown large kidneys bilaterally. He has longstanding diabetes mellitus with end-organ damage from it. He is currently following his blood pressures and blood sugars closely. He denies any nausea, vomiting, diarrhea, chest pain, orthostatic symptoms. He does not take any nonsteroidal anti-inflammatories. He was accompanied by his son during the office visit [facility] Medical History Type 2 diabetes mellitus with diabetic nephropathy Hypertension Chronic kidney disease, stage 3a Social History Alcohol intake: never Patient Tobacco Use Status: Never used Tobacco Review of Systems Const All systems reviewed & are unremarkable except as noted in HPI and below Physical Exam Const General: comfortable and no acute distress Orientation/consciousness: patient oriented x3 HEENT Head: Yes normocephalic Mouth: Normal oral and palatal mucosa present Eyes EOM: EOMs intact bilaterally Neck Neck: Yes supple Resp Auscultation: clear to auscultation bilaterally Cardio Jugular venous distension: no JVD Rate: regular rate GI Palpation (GI): Soft to palpation Auscultation: normal bowel sounds General: Yes no CVA tenderness Back/Spine/Pelvis Back: no CVA tenderness Skin General skin exam: no rashes or lesions noted Neuro General: patient oriented x3 and moves all extremities Extrem General: Yes no pedal edema Results Reviewed Nephrology Results: Sodium, (135-145) 139 mmol/L 02/02/25 Potassium, (3.3-5.1) 4.5 mmol/L 02/02/25 Chloride, (96-108) 108 mmol/L 02/02/25 Carbon Dioxide, (22-29) 24 mmol/L 02/02/25 BUN, (9-16) 29 mg/dL H 02/02/25 Creatinine, (0.5-1.4) 2.93 mg/dL H 02/02/25 Assessment & Plan Assessment & Plan (1) CKD stage 3b, GFR 30-44 ml/min: Code(s): N18.32 - Chronic kidney disease, stage 3b Category: Medical (2) Hypertension: Code(s): I10 - Essential (primary) hypertension Category: Medical Qualifiers: Hypertension type: primary hypertension Qualified Code(s): I10 - Essential (primary) hypertension Plan Shah has diabetic nephropathy .He has H/O PETERSON on CKD from tubular injury and his ARB has been discontinued. He has diabetic nephropathy. His metformin is on hold. He is on Farxiga. He does not take nonsteroidal anti-inflammatories and maintain good hydration. His urine output is good. His BP at goal. All his and his son's questions were answered. Follow-up appointment given Orders: Orders Creatinine 3 Months I10 - Essential (primary) hypertension, N18.32 - Chronic kidney disease, stage 3b Blood Urea Nitrogen 3 Months I10 - Essential (primary) hypertension, N18.32 - Chronic kidney disease, stage 3b Electrolytes 3 Months I10 - Essential (primary) hypertension, N18.32 - Chronic kidney disease, stage 3b Coding Level of Care Code Est Pt Level 4 (48573) Diagnoses CKD stage 3b, GFR 30-44 ml/min N18.32 Primary hypertension I10 Hypertension type: primary hypertension
[2025-02-13 10:26] VITALS: BP 122/84; PULSE 65; O2SAT 95; BMI 32.6
--- OUTSIDE RECORDS SUMMARY | 2025-02-13 11:41 | XMS_ITS | Clinical Summary ---
Author Organization [facility] Address [address] [place] [address] Phone Care Team Providers Care Patient Coordinator Name Role Phone Lenora Cox SEAFOOD PROCESS WORKER Primary Care Provider [phone] Social History Tobacco Use Types Packs/Day Years [...] of 2 - Risk 2-dose series) 1985 RSV Immunization Adult Patients (1 - Risk 50-74 years 1-dose series) 02/23/2016 Social Influencers of Health Screening 01/25/2022 Depression [...] on patient's age to complete this topic Insurance MEDICAID - [place] Care Teams Patient Coordinator Relationship Specialty Start Date End Date Lenora Cox NP [facility] [place] [address] PCP - General 08/12/20
--- OUTSIDE RECORDS SUMMARY | 2025-02-13 11:41 | XMS_ITS | Clinical Summary ---
Author Organization [facility] Address [address] [place] [address] [address] [place] [address] Phone Care Team Providers Care Territory Development Manager Name Role Phone Arti Jimenez CENTER SALES AND SERVICE ASSOCIATE Primary Care Provider [phone] Allergies No known active allergies Medications amitriptyline [...] each day 03/04/2022 Active ergocalciferol 1.25 MG (22646 UT) capsuleIndicatio ns:Vitamin D deficiency, not otherwise [...] Problem Noted Date Diagnosed Date Resolved Date Steatotic liver disease 12/03/202011/23 Overview (12/17/2020): US RUQ 03/2020 Dizziness 08/03/2020 [...] [place] [facility] 12/14/17 - CXR: Impression: no [...] to 49 Years) Discontinued 12/01/2017 Insurance Medicaid [place] Medicaid [place] Care Teams Territory Development Manager Relationship Specialty Start Date End Date Arti Jimenez NP [address] [place] [address] PCP - General Nurse Practitioner 12/17/20
--- OUTSIDE RECORDS SUMMARY | 2025-02-13 11:41 | XMS_ITS | Clinical Summary ---
Author Organization [employer] Address [address] [place] [address] Care Team Providers Care Digital Producer Name Role Phone Unavailable Primary Care Provider Unavailabl e Social History Tobacco Use Types Packs/Day Years Used Date Smoking Tobacco: Never Assessed Sex and Gender Information Value Date Recorded Sex Assigned at Not on file Legal Sex Male 9:16 PM EDT Gender Identity Not on file Sexual Orientation Not on file Plan of Treatment Health Maintenance Due Date Last Done Comments CT Colonography 1966 Depression Screening 1966 FIT DNA/Cologuard 1966 FIT 1966 FOBT 1966 Lipid Panel 1966 SDOH Screening 1966 Sigmoidoscopy 1966 Disability Screening 1966 Alcohol/Substance Use Screening 1978 Tobacco Screening 1978 Hepatitis C Screening 02/23/1984 Hepatitis A Vaccines (1 of 2 - Risk 2-dose series) 1985 RSV Patients and Patients Aged 60 years or older (1 - Risk 50-74 years 1-dose series) 02/23/2016 COVID-19 Vaccine (2024- season) 2024 01/27/2023, 02/26/2021, 06/19/2020, Additional history exists DTaP/Tdap/Td Vaccines (5 - Td or Tdap) 11/27/2032 11/27/2022, 05/13/2012, 02/08/2012, Additional history exists Colonoscopy 10/10/2033 10/11/2023 Colorectal Cancer Screening 10/10/2033 Hepatitis B Vaccines Completed 05/31/2012, 02/08/2012, 12/23/2011 HIV Screening Completed 12/01/2017 Zoster Vaccines Completed 12/16/2021, 03/23/2019 Pneumococcal Vaccine: 50+ Years Completed 11/27/2022, 12/01/2017 Influenza Vaccine Completed 01/01/2025, , 11/27/2022, Additional history exists HIB Vaccines Aged Out [...]
== END 2025-02-13 10:45 | disposition home or self-care (01) ==
LOC: HO.HKAS 10:25
PROVIDERS: PCP Nurse Practitioner Family; Visit Provider Internal Medicine Nephrology
DX: N18.32 Chronic kidney disease, stage 3b (principal); I10 Essential (primary) hypertension
CPT/HCPCS: 99214

== ENCOUNTER → 2025-02-13 10:24 | Outpatient (BNVA) | payer MEDICAID, SELFPAY | PROVIDERS: PCP Nurse Practitioner Family; Visit Provider Internal Medicine Nephrology | DX: I12.9 Hypertensive chronic kidney disease with stage 1 through stage 4 chronic kidney disease, or unspecified chronic kidney disease (principal); E11.22 Type 2 diabetes mellitus with diabetic chronic kidney disease; N18.32 Chronic kidney disease, stage 3b; Z79.84 Long term (current) use of oral hypoglycemic drugs | CPT/HCPCS: 99212 ==